=== PATIENT | female | born 1960 | race African-American/Black ===

== ENCOUNTER 2016-08-09 11:03 | Observation (INO) | payer OTHER ==
[~2016-08-09] VITALS: Ht 172.7 cm; Wt 130.0 kg
[2016-08-09] VITALS (8 sets, daily range): BP systolic 117–152; BP diastolic 68–99; PULSE 82–109; RESP 16–20; TEMP 97.6–98.5; O2SAT 93–98
[~2016-08-09 11:03] MED LIST: ALBU0.08 NEB; ALBUAER3 INH; AMLO10 PO; ATOR40TA16 PO; CALTTAB PO; DICL1KIT TOPICAL; HYDR12.57 PO; IPRASOL INH; METF850 PO; SPIRCAP INH
[2016-08-09] MEDS: RESP: ALBUTEROL 2.5 MG/IPRATROPIUM 0.5 MG NEB (SCH) INH ×3 (12:44→13:00)
[2016-08-09] MEDS ORDERED: methylPREDNISolone SOD SUCC 125 MG/2 ML VIAL IVP ONE (12:45)
--- NOTE | 2016-08-09 12:57 | PD ---
HPI Chief Complaint: Chest Pain Time Seen by Provider: 12:38 Travel History International Travel<30 days: No Contact w/Intl Traveler<30days: No Traveled to known affect area: No History of Present Illness HPI Patient is a 56-year-old female presenting with chief complaint "I think I have pneumonia". 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 She has white sputum production. She states yesterday she began having intermittent left-sided sharp chest pain that is only with cough or deep inspiration. It is brief and fleeting and not exertional related. It does not radiate. She's denies ENT/URI symptoms, myalgias, headache, fever, chills, nausea and vomiting. She did not receive a influenza vaccine this year but has had 2 pneumococcal vaccinations. She has used nebulizers which has helped but after doing when at 5 AM this morning proximally 2-3 hours later she began coughing until she felt like she was going to "pass out" and she figured she should come to the ED. She denies any syncopal episode or recurring of the dizziness. She denies any chest pain currently. She denies any abdominal pain, dysuria or diarrhea. She states she' s had some recurrent upper extremity edema that is worse on the right with some pain in the right calf for 1 week. Has history of DVT in the right calf has been off warfarin for 4-5 months. She denies tobacco, ethanol and illicit drug use. PFSH Past Medical History Hx Anticoagulant Therapy: Yes Anemia: Yes Arthritis: Yes Autoimmune Disease: No Blood Disorders: No Bipolar Disorder: Yes Anxiety: Yes Depression: Yes Heart Rhythm Problems: No Cancer: No Cardiovascular Problems: Yes (HIGH BP) High Cholesterol: No Chemotherapy: No Chest Pain: No Congestive Heart Failure: No COPD: Yes Cerebrovascular Accident: Yes (cva) Diabetes: Yes (metformin) Diminished Hearing: No Deep Vein Thrombosis: Yes Endocrine: No Genitourinary: No Headaches: Yes Hepatitis: Yes Hypertension: Yes Immune Disorder: No Musculoskeletal: Yes (RT KNEE CONTUSION AND LEFT THUMB FX 06/06/06) Neurologic: Yes Psychiatric: No Reproductive: No Immunizations Current: Yes Myocardial Infarction: No Menopausal: Yes : 3 Para: 3 Tubal Ligation: Yes Past Surgical History Abdominal Surgery: No Arteriovenous Shunt: No Cardiac Surgery: No Ear Surgery: No Endocrine Surgery: No Eye Surgery: No Genitourinary Surgery: No Gynecologic Surgery: Yes (TUBAL LIGATION) Hysterectomy: No Insulin Pump: No Joint Replacement: No Neurologic Surgery: No Oral Surgery: No Pacemaker: No Thoracic Surgery: No Tonsillectomy: Yes Valve Replacement: Yes Other Surgery: Yes Social History Alcohol Use: No Tobacco Use: No Substance Use: No Allergies-Medications (Allergen,Severity, Reaction): Coded Allergies: Darvocet-N 100 (Verified Allergy, Severe, NAUSEA, 08/09/16) Toradol (Verified Allergy, Intermediate, rash, 08/09/16) Robaxin (Verified Adverse Reaction, Severe, DIARRHEA, 08/09/16) *MDRO Multi-Drug Resistant Organism (Verified Adverse Reaction, Unknown, ) 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 Reported Meds & Prescriptions Reported Meds & Active Scripts Active Glucophage (Metformin HCl) 850 Mg Tab 850 Mg PO DAILY With a meal Spiriva Handihaler (Tiotropium Inh) 18 Mcg Cap 18 Mcg INH DAILY 1 capsule = 18 mcg Caltrate 600+D (Calcium Carbonate-Cholecalciferol) 600-800 Mg-Unit Tab 1 Tab PO BID Hydrochlorothiazide 12.5 Mg Cap 12.5 Mg PO DAILY Reported Norvasc (Amlodipine Besylate) 10 Mg Tab 10 Mg PO DAILY Duoneb (Ipratropium-Albuterol Neb) 0.5-2.5 Mg/3 Ml Neb 1 Nebule INH Q4HR NEB Vopac Mds (Diclofenac Sodium (Topical)) 1.5 % Kit 4 Gm TOPICAL TID Atorvastatin (Atorvastatin Calcium) 40 Mg Tab 40 Mg PO HS Albuterol Neb (Albuterol Sulfate) 2.5 Mg/3 Ml Neb 2.5 Mg NEB Q4HR NEB While awake Proair Hfa 8.5 GM Inh (Albuterol Sulfate) 90 Mcg/Act Aer 1 Puff INH Q4H PRN 108 mcg/actuation Review of Systems Except as stated in HPI: all other systems reviewed are Neg Physical Exam Narrative GENERAL: Well-developed and well-nourished obese female adult in no acute distress. SKIN: Warm and dry. Good turgor without tenting. HEAD: Normocephalic and atraumatic. EYES: PERRL bilaterally, 5mm. EOMI bilaterally. No injection or icterus present. No proptosis. Lids without edema or erythema. ENT: Bilateral ear canals are non-edematous/non-erythematous without otorrhea. Bilateral TMs have intact landmarks and without distortion, perforation, air- fluid level or erythema. Nasal mucosa pink and moist without discharge, septum intact and midline. Buccal mucosa pink and moist. Oropharynx free of erythema, tonsillar hypertrophy, masses, swelling, asymmetry and exudates. Uvula midline and airway patent. NECK: Supple, no meningeal signs. Trachea midline, no JVD. No cervical or facial lymphadenopathy. CARDIOVASCULAR: Regular rate and rhythm without murmurs, rubs, clicks or gallops. Radial and posterior tibial pulses 2+ bilaterally. 1+ bilateral pedal edema, no appreciable difference comparing right to left. There is some tenderness of palpation of the right however it is not tense and there is no discoloration or warmth. RESPIRATORY: Reduced and coarse breath sounds diffusely with inspiratory wheezing, possible crackles in the mid to lower lung cox and the left. No distress or use of accessory muscles. GASTROINTESTINAL: Non-tender, non-distended. Normal bowel sounds all 4 quadrants. No masses or organomegaly present. MUSCULOSKELETAL: Some pain with palpation of the left side of the sternum and precordium without step offs or crepitus. Patient freely moving all four extremities spontaneously. Extremities without clubbing, cyanosis, or edema. No obvious deformities. NEUROLOGIC: CN II-XII grossly intact. Awake and alert. Motor grossly within normal limits. Normal speech. PSYCHIATRIC: Appropriate mood and affect; insight and judgment normal. Data Data Last Documented VS Vital Signs Date Time Temp Pulse Resp B/P Pulse Ox O2 Delivery O2 Flow Rate FiO2 08/09/16 14:25 82 20 99 Room Air 08/09/16 14:25 117/68 08/09/16 11:04 98.5 Orders Electrocardiogram (08/09/16 ) Complete Blood Count With Diff (08/09/16 12:34) Comprehensive Metabolic Panel (08/09/16 12:34) B-Type Natriuretic Peptide (08/09/16 12:34) Act Partial Throm Time (Ptt) (08/09/16 12:34) Prothrombin Time / Inr (Pt) (08/09/16 12:34) Magnesium (Mg) (08/09/16 12:34) Ckmb (Isoenzyme) Profile (08/09/16 12:34) Troponin I (08/09/16 12:34) Influenzae A/B Antigen (08/09/16 12:34) Iv Access Insert/Monitor (08/09/16 12:34) Ecg Monitoring (08/09/16 12:34) Oximetry (08/09/16 12:34) Chest, Pa & Lat (08/09/16 12:34) Methylprednisolone So Succ Inj (Solumedr (08/09/16 12:45) Albuterol-Ipratropium Neb (Duoneb Neb) (08/09/16 12:45) Us Leg Venous Doppler Bilat (08/09/16 ) Ct Pulmonary Angiogram (08/09/16 12:57) CKMB (08/09/16 13:15) CKMB% (08/09/16 13:15) Iohexol 350 Inj (Omnipaque 350 Inj) (08/09/16 14:55) Aspirin (Aspirin) (08/09/16 15:30) Morphine Inj (Morphine Inj) (08/09/16 15:30) Admit Order (Ed Use Only) (08/09/16 15:31) Labs Laboratory Tests Test 08/09/16 13:15 White Blood Count 6.7 TH/MM3 Red Blood Count 4.61 MIL/MM3 Hemoglobin 13.1 GM/DL Hematocrit 40.4 % Mean Corpuscular Volume 87.5 FL Mean Corpuscular Hemoglobin 28.5 PG Mean Corpuscular Hemoglobin 32.6 % Concent Red Cell Distribution Width 13.2 % Platelet Count 256 TH/MM3 Mean Platelet Volume 8.4 FL Neutrophils (%) (Auto) 48.3 % Lymphocytes (%) (Auto) 37.8 % Monocytes (%) (Auto) 7.4 % Eosinophils (%) (Auto) 5.6 % Basophils (%) (Auto) 0.9 % Neutrophils # (Auto) 3.3 TH/MM3 Lymphocytes # (Auto) 2.5 TH/MM3 Monocytes # (Auto) 0.5 TH/MM3 Eosinophils # (Auto) 0.4 TH/MM3 Basophils # (Auto) 0.1 TH/MM3 CBC Comment DIFF FINAL Differential Comment Prothrombin Time 10.7 SEC Prothromb Time International 1.0 RATIO Ratio Activated Partial 29.5 SEC Thromboplast Time Sodium Level 138 MEQ/L Potassium Level 4.3 MEQ/L Chloride Level 102 MEQ/L Carbon Dioxide Level 29.2 MEQ/L Anion Gap 7 MEQ/L Blood Urea Nitrogen 7 MG/DL Creatinine 0.66 MG/DL Estimat Glomerular Filtration 111 ML/MIN Rate Random Glucose 96 MG/DL Calcium Level 8.8 MG/DL Magnesium Level 2.1 MG/DL Total Bilirubin 0.3 MG/DL Aspartate Amino Transf 21 U/L (AST/SGOT) Alanine Aminotransferase 25 U/L (ALT/SGPT) Alkaline Phosphatase 88 U/L Total Creatine Kinase 170 U/L Creatine Kinase MB 0.8 NG/ML Troponin I LESS THAN 0.02 NG/ML B-Type Natriuretic Peptide 20 PG/ML Total Protein 8.1 GM/DL Albumin 3.6 GM/DL [facility] Medical Decision Making Medical Screen Exam Complete: Yes Emergency Medical Condition: Yes Interpretation(s) Laboratory Tests Test 08/09/16 13:15 White Blood Count 6.7 TH/MM3 (4.0-11.0) Red Blood Count 4.61 MIL/MM3 (4.00-5.30) Hemoglobin 13.1 GM/DL (11.6-15.3) Hematocrit 40.4 % (35.0-46.0) Mean Corpuscular Volume 87.5 FL (80.0-100.0) Mean Corpuscular Hemoglobin 28.5 PG (27.0-34.0) Mean Corpuscular Hemoglobin 32.6 % Concent (32.0-36.0) Red Cell Distribution Width 13.2 % (11.6-17.2) Platelet Count 256 TH/MM3 (150-450) Mean Platelet Volume 8.4 FL (7.0-11.0) Neutrophils (%) (Auto) 48.3 % (16.0-70.0) Lymphocytes (%) (Auto) 37.8 % (9.0-44.0) Monocytes (%) (Auto) 7.4 % (0.0-8.0) Eosinophils (%) (Auto) 5.6 % (0.0-4.0) Basophils (%) (Auto) 0.9 % (0.0-2.0) Neutrophils # (Auto) 3.3 TH/MM3 (1.8-7.7) Lymphocytes # (Auto) 2.5 TH/MM3 (1.0-4.8) Monocytes # (Auto) 0.5 TH/MM3 (0-0.9) Eosinophils # (Auto) 0.4 TH/MM3 (0-0.4) Basophils # (Auto) 0.1 TH/MM3 (0-0.2) CBC Comment DIFF FINAL Differential Comment Prothrombin Time 10.7 SEC (9.8-11.6) Prothromb Time International 1.0 RATIO Ratio Activated Partial 29.5 SEC Thromboplast Time (24.3-30.1) Sodium Level 138 MEQ/L (136-145) Potassium Level 4.3 MEQ/L (3.5-5.1) Chloride Level 102 MEQ/L (98-107) Carbon Dioxide Level 29.2 MEQ/L (21.0-32.0) Anion Gap 7 MEQ/L (5-15) Blood Urea Nitrogen 7 MG/DL (7-18) Creatinine 0.66 MG/DL (0.50-1.00) Estimat Glomerular Filtration 111 ML/MIN Rate (>89) Random Glucose 96 MG/DL (74-106) Calcium Level 8.8 MG/DL (8.5-10.1) Magnesium Level 2.1 MG/DL (1.5-2.5) Total Bilirubin 0.3 MG/DL (0.2-1.0) Aspartate Amino Transf 21 U/L (15-37) (AST/SGOT) Alanine Aminotransferase 25 U/L (10-53) (ALT/SGPT) Alkaline Phosphatase 88 U/L (45-117) Total Creatine Kinase 170 U/L (26-192) Creatine Kinase MB 0.8 NG/ML (0.5-3.6) Troponin I LESS THAN 0.02 NG/ML (0.02-0.05) B-Type Natriuretic Peptide 20 PG/ML (0-100) Total Protein 8.1 GM/DL (6.4-8.2) Albumin 3.6 GM/DL (3.4-5.0) Last [address] Angiography 08/09/16 1257 Signed Impressions: Service Date/Time: Tuesday, August 09, 2016 14:46 - CONCLUSION: 1. Negative for pulmonary embolic disease. Chronic scarring and subsegmental atelectasis left upper lobe. Multiple calcified granulomata in the lungs. Tim Leone MD Chest X-Ray 08/09/16 1234 Signed Impressions: Service Date/Time: Tuesday, August 09, 2016 13:36 - CONCLUSION: No acute intrathoracic disease. Carlos Sanz MD Lower Extremity Ultrasound 08/09/16 0000 Signed Impressions: Service Date/Time: Tuesday, August 09, 2016 13:49 - CONCLUSION: 1. No DVT identified. 2. Large Loving's cyst within the popliteal fossa. 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 There is reproducible with palpation. She has no active chest pain. She does have some bilateral pedal edema which she says is relatively new and she has a history of DVT in the right lower extremity she feels like the right is greater than the left and is somewhat painful. Slightly tender to palpation but not warm or appreciably edematous greater than the left. The chest pain is reproducible. Given her respiratory findings this is most likely a COPD exacerbation however cannot rule out ACS or PE. Ordered EKG, chest x-ray, labs included troponin, BNP and coags. Her CT pulmonary angiogram and ordered bilateral venous Doppler ultrasounds. She was given Solu-Medrol and DuoNeb's. EKG shows T-wave flattening in V5 and V6 otherwise unremarkable, sinus rhythm, normal axis and intervals. Chest x-ray showed stable granulomatous disease. Ultrasound bilateral lower extremity shows no DVT but there is a large Loving cyst which is seen on previous Dopplers. CTA pulmonary angiogram is negative for PE. CBC and INR unremarkable. Metabolic panel unremarkable. Troponin less than 0.02, BNP 20. Patient has improved work of breathing and wheezing is resolved on exam, highly suggestive of COPD exacerbation. She was originally without chest pain when first examined however on follow-up she says of the chest pain has returned. She was given aspirin 25 mg and morphine for her pain. Given her history of diabetes and hypertension she is high risk since chest pain seemed to be a dominant symptom and she was admitted to the chest pain center. Diagnosis Primary Impression: Chest pain Qualified Code: R07.9 - Chest pain, unspecified type Additional Impressions: COPD exacerbation Bakers cyst Qualified Code: M71.21 - Bakers cyst, right Condition: Stable Teo Huynh III Aug 09, 2016 12:57 Teo Huynh III Aug 09, 2016 12:57
[2016-08-09 13:37] LABS: AUTOMATED NEUTROPHIL # 3.3 TH/MM3 (1.8-7.7); BASOPHIL # 0.1 TH/MM3 (0-0.2); BASOPHIL % 0.9 % (0.0-2.0); EOSINOPHIL # 0.4 TH/MM3 (0-0.4); EOSINOPHIL % 5.6 % (0.0-4.0); HEMATOCRIT 40.4 % (35.0-46.0); HEMO FLAGS DIFF FINAL; LYMPH % 37.8 % (9.0-44.0); LYMPHOCYTE # 2.5 TH/MM3 (1.0-4.8); MEAN CELL VOLUME 87.5 FL (80.0-100.0); MEAN CORPUSCULAR HEMOGLOBIN 28.5 PG (27.0-34.0); MEAN CORPUSCULAR HGB CONC 32.6 % (32.0-36.0); MONO % 7.4 % (0.0-8.0); NEUT % 48.3 % (16.0-70.0); PLATELET COUNT 256 TH/MM3 (150-450); RED BLOOD COUNT 4.61 MIL/MM3 (4.00-5.30); RED CELL DISTRIBUTION WIDTH 13.2 % (11.6-17.2); WHITE BLOOD COUNT 6.7 TH/MM3 (4.0-11.0)
[2016-08-09 13:45] LABS: APTT (PATIENT) 29.5 SEC (24.3-30.1); PROTHROMBIN TIME - PATIENT 10.7 SEC (9.8-11.6)
--- NOTE | 2016-08-09 13:53 | RADRPT ---
EXAM DATE/TIME: 08/09/2016 13:36 [facility] COMPARISON: CHEST PA & LAT, May 28, 2015, 5:10. INDICATIONS : Patient states chest pain, shortness of breath, and weakness for 3 days. MEDICAL HISTORY : Chronic obstructive pulmonary disease. Diabetes mellitus type II. SURGICAL HISTORY : None. ENCOUNTER: Initial ACUITY: 3 days PAIN SCORE: 8/10 LOCATION: Bilateral chest FINDINGS: PA and lateral views of the chest demonstrates stable scarring in the left upper lung. There are calc ified granulomas in both lungs. No acute pulmonary infiltrates. The heart size is stable. There are n o pleural effusions. No pulmonary edema. The bony structures are grossly intact. Compared to the prio r exam there has been no significant changes.. CONCLUSION: No acute intrathoracic disease. Carlos Sanz MD on August 09, 2016 at 13:50 Board Certified Radiologist. This report was verified electronically.
[2016-08-09 13:56] LABS: ANION GAP 7 MEQ/L (5-15); AST (GOT) 21 U/L (15-37); BICARBONATE 29.2 MEQ/L (21.0-32.0); BLOOD UREA NITROGEN 7 MG/DL (7-18); CHLORIDE 102 MEQ/L (98-107); GLOMERULAR FILTRATION RATE 111 ML/MIN (>89); MAGNESIUM 2.1 MG/DL (1.5-2.5); POTASSIUM 4.3 MEQ/L (3.5-5.1); SODIUM (NA) 138 MEQ/L (136-145)
[2016-08-09 14:03] LABS: ALKALINE PHOSPHATASE 88 U/L (45-117); ALT (GPT) 25 U/L (10-53); CREATINE KINASE 170 U/L (26-192); TOTAL BILIRUBIN ADULT 0.3 MG/DL (0.2-1.0)
[2016-08-09 14:16] LABS: CKMB 0.8 NG/ML (0.5-3.6)
--- NOTE | 2016-08-09 14:44 | RADRPT ---
EXAM DATE/TIME: 08/09/2016 13:49 [facility] COMPARISON: US LEG LEFT VENOUS DOPPLER, June 16, 2015, 15:04. INDICATIONS : Bilateral leg swelling. MEDICAL HISTORY : Chronic obstructive pulmonary disease. Deep venous thrombosis. Hypertension. Cerebrovascular accident . Syncope. Tuberculosis. . Arthritis. Osteoporosis. Diabetes. Bipolar. Anemia. Hepatitis. MR SA. SURGICAL HISTORY : Tonsillectomy.Tubal ligation. Right knee surgery. ENCOUNTER: Subsequent ACUITY: 2 weeks PAIN SCORE: 3/10 LOCATION: Bilateral legs. TECHNIQUE: Venous ultrasound of the left and right leg was performed from the inguinal ligament to the proximal calf. Real-time, color Doppler and spectral tracing, compression and augmentation techniques were us ed. FINDINGS: RIGHT LEG: There is normal compressibility of the deep venous system from the inguinal region to the proximal ca lf. No echogenic clot is seen in the lumen of the common femoral, femoral, popliteal, and posterior tibial veins. There is a normal response of the venous system to proximal and distal augmentation an d respiration. The examination does demonstrate a 6.6 x 3.0 x 1.9 cm Loving's cyst within the popliteal fossa. LEFT LEG: There is normal compressibility of the deep venous system from the inguinal region to the proximal ca lf. No echogenic clot is seen in the lumen of the common femoral, femoral, popliteal, and posterior tibial veins. There is a normal response of the venous system to proximal and distal augmentation an d respiration. CONCLUSION: 1. No DVT identified. 2. Large Loving's cyst within the popliteal fossa. Sudheer Glover MD on August 09, 2016 at 14:42 Board Certified Radiologist. This report was verified electronically.
[2016-08-09] MEDS ORDERED: IOHEXOL 350 MG/ML 10 ML VIAL (for RAD DIAG) IV ONE (14:55)
--- NOTE | 2016-08-09 15:16 | RADRPT ---
EXAM DATE/TIME: 08/09/2016 14:46 [facility] COMPARISON: No previous studies available for comparison. INDICATIONS : Left chest pain x 3 days. IV CONTRAST: 74 cc Omnipaque 350 (iohexol) IV RADIATION DOSE: 28.45 CTDIvol (mGy) MEDICAL HISTORY : Cerebrovascular disease. Deep venous thrombosis. Chronic obstructive pulmonary disease.Hypertension. Diabetes. Tuberculosis. SURGICAL HISTORY : Tubal ligation. ENCOUNTER: Initial ACUITY: 3 days PAIN SCALE: 5/10 LOCATION: Left chest TECHNIQUE: Volumetric scanning of the chest was performed using a pulmonary embolism protocol MIP images were re constructed. Using automated exposure control and adjustment of the mA and/or kV according to patien t size, radiation dose was kept as low as reasonably achievable to obtain optimal diagnostic quality images. FINDINGS: No filling defects identified within the pulmonary arteries to suggest pulmonary embolic disease. The re is linear scarring in the upper left lung associated with calcification. There is chronic bilatera l apical pleural thickening. Calcified granuloma noted in both lungs. No pleural or pericardial effus ion. No acute findings in the upper abdomen. No adenopathy. Moderate coronary calcifications. CONCLUSION: 1. Negative for pulmonary embolic disease. Chronic scarring and subsegmental atelectasis left upper l obe. Multiple calcified granulomata in the lungs. Tim Leone MD on August 09, 2016 at 15:10 Board Certified Radiologist. This report was verified electronically.
[2016-08-09] MEDS ORDERED: ASPIRIN 325 MG TAB PO ONE (15:30)
[2016-08-09] MEDS ORDERED: MORPHINE SULFATE 4 MG/ML INJ IV PUSH ONE (15:30)
[2016-08-09] MEDS ORDERED: GLUCAGON 1 MG/ML VIAL IM/SQ PRN (16:15)
[2016-08-09] MEDS ORDERED: DEXTROSE 50% IN WATER 50 ML VIAL(D50) IV PRN (16:15)
[2016-08-09] MEDS ORDERED: SODIUM CHLORIDE 0.9% FLUSH 5 ML FLUSH IVF PRN (16:30)
[2016-08-09] MEDS ORDERED: ONDANSETRON HCL 4 MG/2 ML VIAL IV PRN (16:30)
[2016-08-09] MEDS ORDERED: cloNIDine HCL 0.1 MG TAB PO PRN (17:00)
[2016-08-09] MEDS ORDERED: ALPRAZolam 0.25 MG TAB PO PRN (17:00)
[2016-08-09 17:50] LABS: CREATINE KINASE 136 U/L (26-192)
[2016-08-09 18:02] LABS: CKMB 1.2 NG/ML (0.5-3.6)
[2016-08-09] MEDS ORDERED: RESP: ALBUTEROL 2.5 MG/IPRATROPIUM 0.5 MG NEB (PRN) INH (20:00)
[2016-08-09 20:30] LABS: CREATINE KINASE 136 U/L (26-192)
[2016-08-09 20:42] LABS: CKMB 0.9 NG/ML (0.5-3.6)
[2016-08-09] MEDS ORDERED: ATORVASTATIN 40 MG TAB PO SCH (21:00)
[2016-08-09] MEDS: SODIUM CHLORIDE 0.9% FLUSH 5 ML FLUSH IVF SCH (21:55)
[2016-08-09] MEDS: INSULIN ASPART SUPPLEMENTAL SCALE SQ SCH (21:56)
[2016-08-09] MEDS: ACETAMINOPHEN/HYDROcodone 325 MG/7.5 MG TAB PO PRN (22:38)
[2016-08-10] VITALS (7 sets, daily range): BP systolic 119–143; BP diastolic 79–85; PULSE 73–91; RESP 18–20; TEMP 96.3–97.4; O2SAT 92–96
[2016-08-10] MEDS: ACETAMINOPHEN/HYDROcodone 325 MG/7.5 MG TAB PO PRN ×2 (04:00→09:55)
[2016-08-10] MEDS: INSULIN ASPART SUPPLEMENTAL SCALE SQ SCH ×2 (07:00→12:30)
--- NOTE | 2016-08-10 08:25 | MH ---
cc: JO OVIEDO MD DATE OF ADMISSION 08/09/2016 DATE OF 1960 CHIEF COMPLAINT Chest pain and coughing. HISTORY OF THE PRESENT ILLNESS This is a 56-year-old female that presents to the emergency department with a complaint of "I think I have pneumonia". 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 She again thought that she had pneumonia at that time. She states that she has been having a cough for the last week. It is sometimes productive bringing up tannish to whitish colored mucus. Really has had no fevers at home. Last night the cough became worse. She took two DuoNeb at home and states that the cough cleared up and she was feeling better. She also states that for the last three days she has had some chest discomfort. She states the first two days only it was occurring when she was coughing, but over the last 24 hours it has been there constantly but is worsened when she coughs or certain movements. She is at times short of breath . (1:06). She was nauseous yesterday and had one episode of emesis with that. Since then no longer nauseated. Yesterday when she was coughing a lot she also was a little diaphoretic. She states that while in the emergency department she was given three breathing treatments and IV steroids and feels a lot better. She states that she was wheezing quit a bit prior to that and now she has not noticed any more wheezing. She does have a primary care physician. She does not currently followed by entry level software engineer. She thinks she has had a stress test in the past. I reviewed her records, she had adenosine thallium stress test in 2010 that was non ischemic. The patient also has a history of deep venous thrombosis of her right leg about a year and a half ago and states that she finished warfarin therapy and has been off of warfarin for the last four or five months. She states that both legs have been a little bothersome and she needs to have both knees replaced and was hoping to have one of them done here in the near future. PAST MEDICAL HISTORY 1. Chronic obstructive pulmonary disease. 2. Diabetes. 3. Hypertension. 4. History of DVT of her right leg. 5. She states that she was told by an emergency room physician that she had a stroke but does not remember having one. 6. Also a history of hyperlipidemia. Denies known coronary artery disease. FAMILY HISTORY Positive ____ had myocardial infarction at 56. SOCIAL HISTORY The patient is a non-smoker. She denies any illicit drugs. She rarely has any alcohol. PAST SURGICAL HISTORY 1. Tubal ligation. 2. Tonsillectomy. ALLERGIES DARVOCET, ROBAXIN, TORADOL. SHE HAS A HISTORY OF MRSA. MEDICATIONS Current medications include: 1. Spiriva HandiHaler. 2. Albuterol inhaler. 3. DuoNeb nebulizer treatments. 4. Metformin. 5. Norvasc. 6. Atorvastatin. 7. Calcium. 8. Diclofenac topical gel. 9. Hydrochlorothiazide. REVIEW OF SYSTEMS GENERAL: Denies fever or chills. HEENT: Denies headache, earache, sore throat, difficulty swallowing. CARDIOVASCULAR: Describes the discomfort as mentioned above. At times diaphoresis yesterday. Denies sensation of heart beating rapidly or irregularly. No syncope. But states that she had a couple of episodes where she was coughing so much she thought she could have passed out. RESPIRATORY: The patient complains of a cough over the last week. She was wheezing yesterday that improved after some breathing treatments at home. She also states that she was wheezing a lot in the emergency room earlier but got three breathing treatments and some IV steroids and is feeling a lot better. Denies hemoptysis. GASTROINTESTINAL: There was nausea with one episode of emesis yesterday. Denies abdominal pain. Denies diarrhea or constipation or blood in the stool. MUSCULOSKELETAL: She has some chronic knee pain. States both legs have been bothering her for a long time. Denies any recent travel. She also complains of chronic neck and back pain. NEUROVASCULAR: Denies headache or dizziness. ENDOCRINE: Denies polyuria, polydipsia. HEMATOLOGIC: Denies easy bruising. SKIN: Denies rash or itching. PHYSICAL EXAMINATION VITAL SIGNS: In the emergency department initially included a blood pressure of 152/84, heart rate was 90, respiratory rate 16, pulse oximetry 96% on room air and she was afebrile. The most recent vital signs include a blood pressure of 132/87, heart rate is 82, respiratory rate 18, pulse oximetry 98% on room air. GENERAL: The patient is seen in the examination room in no apparent distress. She is very pleasant. She speaks in clear and complete sentences. HEENT: Head is atraumatic, normocephalic. NECK: Supple without lymphadenopathy. Trachea is midline. No JVD or carotid bruits. CARDIOVASCULAR: Regular rate and rhythm without murmurs, rubs, or gallops. LUNGS: Clear to auscultation bilaterally. No wheezes, rhonchi or rales. There is good air movement. No use of accessory muscles. She states that earlier before the treatments and steroids she was very tight and was wheezing a lot. There is easily reproducible chest wall discomfort to the center and just left of the sternum. ABDOMEN: Nontender. Nondistended. Bowel sounds are normal. No rebound or guarding. No obvious pulsatile mass or bruit. No CVA tenderness. Strong femoral pulses bilaterally. MUSCULOSKELETAL: The patient moving upper and lower extremities freely. There is some tenderness with range of motion of her knees which is chronic. She also has some discomfort with movement of her back which also is chronic. At the time there is no calf tenderness or edema. No Radha sign. Strong pulses in the upper and lower extremities. NEUROVASCULAR: The patient is alert and oriented. Cranial nerves II through XII are grossly intact. No focal deficits. Speech is clear. SKIN: No rashes and turgor is normal. LABORATORY DATA CBC is unremarkable. Coagulation studies were unremarkable. Complete metabolic panel is normal. The first set of cardiac enzymes normal. BNP is normal at 20. IMAGING PA and lateral chest x-ray read by radiologist as no acute intrathoracic disease. A CT pulmonary angiography obtained in the emergency room by the radiologist as negative for pulmonary embolic disease. Chronic scarring and subsegmental atelectasis left upper lobe. Multiple calcified granulomata in the lungs. An ultrasound of both legs obtained in the emergency room and read by the radiologist as no deep venous thrombosis identified. There is a large sanford's cyst within the popliteal fossa of the right leg, and I reviewed her records and she has had this for some time. ELECTROCARDIOGRAM Initial EKG is sinus rhythm, rate of 74 with nonspecific T wave changes laterally. ASSESSMENT AND PLAN 1. Chest pain: The patient will continue to have cardiac enzymes and EKGs for ruling out purposes. She will be seen by Dr. Oviedo of cardiology in the chest pain center. Further plan pending Dr. Oviedo's evaluation as far in the morning if she will need stress testing or not. If she needs stress test would likely be a Lexiscan. If her cardiac workup were to be unremarkable, she will be discharged home with instructions to follow up with local physician. 2. Chronic obstructive pulmonary disease. We will continue DuoNeb as needed. At discharge she can resume her medications. 3. Hypertension. Continue current medications. Add Catapres as needed. 4. Diabetes. We will need to hold metformin for two days secondary to recent IV contrast study. She will be covered with insulin sliding scale coverage. The patient is stable at this time. She is agreeable to this plan. DICTATED BY: KENNA Lucas Jo Oviedo M.D. BAB/KK /4:28 PM /8:25 AM
[2016-08-10] MEDS ORDERED: HYDROCHLOROTHIAZIDE 12.5 MG CAP PO SCH (09:00)
[2016-08-10] MEDS: SODIUM CHLORIDE 0.9% FLUSH 5 ML FLUSH IVF SCH (09:50)
--- NOTE | 2016-08-10 13:21 | EKG ---
Date Performed: 08/09/2016 Time Performed: 20:04:04 PTAGE: 56 years EKG: SINUS TACHYCARDIA NONSPECIFIC T-WAVE ABNORMALITY ABNORMAL RHYTHM ECG PREVIOUS TRACING : 08/09/2016 17.10 Since previous tracing, no significant change noted DOCTOR: Christophe Santos Interpretating Date/Time 08/10/2016 13:20:02
[2016-08-10] MEDS ORDERED: REGADENOSON INJ 0.4 MG/5 ML SYR ONE (13:47)
--- NOTE | 2016-08-10 15:15 | RADRPT ---
EXAM DATE/TIME: 08/10/2016 12:49 [facility] COMPARISON: MYOCARDIAL PERF PHARM SPECT, GATED W/EF, April 19, 2010, 11:08. INDICATIONS : Left sided chest pain for 3 days. Angina. DOSE: 35 mCi Tc99m Myoview at stress. 11 mCi Tc99m Myoview at rest. 0.4 mg Lexiscan STRESS SYMPTOMS: Flushed. EJECTION FRACTION: 53% MEDICAL HISTORY : Hypertension. Chronic obstructive pulmonary disease. Diabetes mellitus type 2. Granulomatous lung dis ease. SURGICAL HISTORY : Tubal ligation. ENCOUNTER: Initial ACUITY: 3 days PAIN SCALE: 3/10 LOCATION: Midsternal chest TECHNIQUE: The patient underwent pharmacologic stress with infusion of prescribed dose. Continuous ECG tracing was monitored during stress. Gated SPECT imaging was performed after stress and conventional SPECT i maging was performed at rest. The examination was performed on a SPECT/CT scanner, both attenuation and non-corrected datasets were reviewed. FINDINGS: DISTRIBUTION: The maximum perfused segment at stress is in the anterolateral wall. PERFUSION STUDY: The pattern of perfusion at stress is within normal limits. GATED STUDY: There is intact wall motion and thickening without hypokinetic or dyskinetic segments. CONCLUSION: 1. No reversible perfusion defect to suggest stress induced myocardial ischemia identified. RISK CATEGORY: Low (<1% Annual Mortality Rate) Sudheer Glover MD on August 10, 2016 at 15:10 Board Certified Radiologist. This report was verified electronically.
--- NOTE | 2016-08-10 15:27 | EKG ---
Date Performed: 08/09/2016 Time Performed: 17:10:52 PTAGE: 56 years EKG: Sinus rhythm NONSPECIFIC T-WAVE ABNORMALITY BORDERLINE ECG PREVIOUS TRACING : 08/09/2016 12.03 Since previous tracing, no significant change noted DOCTOR: Christophe Santos Interpretating Date/Time 08/10/2016 15:26:26
--- NOTE | 2016-08-10 15:29 | HHI.DCPOC ---
Discharge Care Plan Diagnosis: (1) Chest pain (2) Hypertension (3) Hyperlipidemia (4) COPD exacerbation (5) Obesity Goals to Promote Your Health * To prevent worsening of your condition and complications * To maintain your health at the optimal level Directions to Meet Your Goals Take your medications as prescribed Follow your dietary instruction Follow activity as directed Keep your appointments as scheduled Take your immunizations and boosters as scheduled If your symptoms worsen call your PCP, if no PCP go to Urgent Care Center or Emergency Room Smoking is Dangerous to Your Health. Avoid second hand smoke Call the 24-hour hour crisis hotline for domestic abuse at [facility] Aug 10, 2016 15:29
--- NOTE | 2016-08-10 15:29 | EKG ---
Date Performed: 08/09/2016 Time Performed: 12:03:00 PTAGE: 56 years EKG: Sinus rhythm NONSPECIFIC T-WAVE ABNORMALITY BORDERLINE ECG PREVIOUS TRACING : 09/15/2015 05.46 Since previous tracing, no significant change noted DOCTOR: Christophe Santos Interpretating Date/Time 08/10/2016 15:29:11
--- NOTE | 2016-08-10 15:32 | TR ---
Date Performed: 08/10/2016 Time Performed: 13:50:01 DOCTOR: Christophe Santos DRUG LIST: CLINICAL HISTORY: CHEST PAIN REASON FOR TEST: CHEST PAIN REASON FOR ENDING: OBSERVATION: CONCLUSION: Lexiscan stress test was performed under standard four minute protocol. Radionuclid e was injected one minute prior to ending the test. No electrocardiographic abormalities were present to suggest ischemia. Nuclear imaging and interpretation are pending. COMMENTS:
[2016-08-12] MEDS ORDERED: AMLO10 PO ×2 (13:13→13:14)
[2016-08-19] MEDS ORDERED: DICL1GEL TOPICAL (09:23)
[2016-09-27] MEDS ORDERED: ATOR40TA16 PO (08:14)
[2016-12-07] MEDS ORDERED: DICL1GEL7 TOPICAL (09:39)
[2016-12-07] MEDS ORDERED: HYDR12.57 PO (09:39)
[2016-12-07] MEDS ORDERED: METF850 PO (09:39)
[2016-12-07] MEDS ORDERED: AMLO10 PO (09:39)
[2016-12-07] MEDS ORDERED: ATOR40TA16 PO (09:39)
[2016-12-20] MEDS ORDERED: ATOR40TA16 PO (09:32)
[2016-12-20] MEDS ORDERED: HYDR12.57 PO (09:33)
[2016-12-20] MEDS ORDERED: SPIRCAP INH (09:34)
== END 2016-08-10 16:55 | disposition home or self-care (01) ==
LOC: NEPE 13:30 → NEDA 15:33 → NEPHCDU 19:49
PROVIDERS: ADMIT Internal Medicine Interventional Cardiology; ATTEND Internal Medicine Interventional Cardiology
DX: R07.9 Chest pain, unspecified (principal); J44.1 Chronic obstructive pulmonary disease with (acute) exacerbation; M71.21 Synovial cyst of popliteal space [Baker], right knee; Z86.73 Personal history of transient ischemic attack (TIA), and cerebral infarction without residual deficits; J84.10 Pulmonary fibrosis, unspecified; I10 Essential (primary) hypertension; E11.9 Type 2 diabetes mellitus without complications; Z79.01 Long term (current) use of anticoagulants; K75.9 Inflammatory liver disease, unspecified; Z79.899 Other long term (current) drug therapy; Z79.84 Long term (current) use of oral hypoglycemic drugs; J98.11 Atelectasis; Z86.718 Personal history of other venous thrombosis and embolism; R60.0 Localized edema; E78.5 Hyperlipidemia, unspecified
CPT/HCPCS: 71020; 71275; 78452; 80053; 82550; 82552; 82948; 83735; 83880; 84484; 85025; 85610; 85730; 87804; 93005; 93017; 93970; 94640; 94664; 96374; 99285; A9502; G0378; J1815; J2270; J2785; J2930; Q9967

== ENCOUNTER 2016-08-15 00:26 | Emergency (ER) | payer OTHER ==
[2016-08-15 00:30] VITALS: BP 140/85; PULSE 105; RESP 20; TEMP 98.3; O2SAT 96
[2016-08-15 01:30] VITALS: BP 115/86; PULSE 95; RESP 22; TEMP 98.6; O2SAT 95
[2016-08-15] MEDS ORDERED: SODIUM CHLOR 0.9% 1000 ML INJ 1,000 ML IV SCH (01:32)
--- NOTE | 2016-08-15 01:36 | PD ---
HPI Chief Complaint: Flank/Kidney Pain Time Seen by Provider: 01:29 Travel History International Travel<30 days: No Contact w/Intl Traveler<30days: No Traveled to known affect area: No History of Present Illness HPI Patient is a 56-year-old female who presents to emergency room with complaints of right-sided flank pain. Patient reports that flank pain began around 11 PM tonight, reports the pain does not radiate. Patient reports no history of kidney stones in the past. Patient denies dysuria, urinary urgency or frequency. Patient denies nausea or vomiting. Patient discussed patient or diarrhea. Patient denies fall or any trauma to her low back. PFSH Past Medical History Hx Anticoagulant Therapy: Yes Anemia: Yes Arthritis: Yes Autoimmune Disease: No Blood Disorders: No Bipolar Disorder: Yes Anxiety: Yes Depression: Yes Heart Rhythm Problems: No Cancer: No Cardiovascular Problems: Yes (HIGH BP) High Cholesterol: No Chemotherapy: No Chest Pain: No Congestive Heart Failure: No COPD: Yes Cerebrovascular Accident: Yes Diabetes: Yes Patient Takes Glucophage: Yes Diminished Hearing: No Deep Vein Thrombosis: Yes Endocrine: No Gastrointestinal Disorders: No Genitourinary: No Headaches: Yes Hepatitis: Yes Hypertension: Yes Immune Disorder: No Implanted Vascular Access Dvce: No Musculoskeletal: Yes (RT KNEE CONTUSION AND LEFT THUMB FX 06/06/06) Neurologic: Yes Psychiatric: No Reproductive: No Immunizations Current: Yes Myocardial Infarction: No Tetanus Vaccination: < 5 Years Influenza Vaccination: Yes ?: Not Menopausal: Yes : 3 Para: 3 Tubal Ligation: Yes Past Surgical History Abdominal Surgery: No Arteriovenous Shunt: No Cardiac Surgery: No Ear Surgery: No Endocrine Surgery: No Eye Surgery: No Genitourinary Surgery: No Gynecologic Surgery: Yes (TUBAL LIGATION) Hysterectomy: No Insulin Pump: No Joint Replacement: No Neurologic Surgery: No Oral Surgery: No Pacemaker: No Thoracic Surgery: No Tonsillectomy: Yes Valve Replacement: Yes Other Surgery: Yes Family History Family History: Negative Social History Alcohol Use: No Tobacco Use: No Substance Use: No Allergies-Medications (Allergen,Severity, Reaction): Coded Allergies: Darvocet-N 100 (Verified Allergy, Severe, NAUSEA, 08/09/16) Toradol (Verified Allergy, Intermediate, rash, 08/09/16) Robaxin (Verified Adverse Reaction, Severe, DIARRHEA, 08/09/16) *MDRO Multi-Drug Resistant Organism (Verified Adverse Reaction, Unknown, ) 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 Reported Meds & Prescriptions Reported Meds & Active Scripts Active Macrobid (Nitrofurantoin Monoh/Nitrofur Macro) 100 Mg Cap 100 Mg PO BID 10 Days Norvasc (Amlodipine Besylate) 10 Mg Tab 10 Mg PO DAILY Glucophage (Metformin HCl) 850 Mg Tab 850 Mg PO DAILY With a meal Spiriva Handihaler (Tiotropium Inh) 18 Mcg Cap 18 Mcg INH DAILY 1 capsule = 18 mcg Caltrate 600+D (Calcium Carbonate-Cholecalciferol) 600-800 Mg-Unit Tab 1 Tab PO BID Hydrochlorothiazide 12.5 Mg Cap 12.5 Mg PO DAILY Reported Duoneb (Ipratropium-Albuterol Neb) 0.5-2.5 Mg/3 Ml Neb 1 Nebule INH Q4HR NEB Vopac Mds (Diclofenac Sodium (Topical)) 1.5 % Kit 4 Gm TOPICAL TID Atorvastatin (Atorvastatin Calcium) 40 Mg Tab 40 Mg PO HS Albuterol Neb (Albuterol Sulfate) 2.5 Mg/3 Ml Neb 2.5 Mg NEB Q4HR NEB While awake Proair Hfa 8.5 GM Inh (Albuterol Sulfate) 90 Mcg/Act Aer 1 Puff INH Q4H PRN 108 mcg/actuation Review of Systems General / Constitutional: No: Fever Eyes: No: Visual changes HENT: No: Headaches Cardiovascular: No: Chest Pain or Discomfort Respiratory: No: Shortness of Breath Gastrointestinal: No: Abdominal Pain Genitourinary: No: Dysuria Musculoskeletal: Positive: Pain (right-sided flank pain) Skin: No Rash Neurologic: No: Weakness Psychiatric: No: Depression Endocrine: No: Polydipsia Hematologic/Lymphatic: No: Easy Bruising Physical Exam Narrative GENERAL: Patient in mild distress, patient crying evaluation SKIN: Warm and dry. HEAD: Atraumatic. Normocephalic. EYES: Pupils equal and round. No scleral icterus. No injection or drainage. ENT: No nasal bleeding or discharge. Mucous membranes pink and moist. NECK: Trachea midline. No JVD. CARDIOVASCULAR: Regular rate and rhythm. No murmur appreciated. RESPIRATORY: No accessory muscle use. Clear to auscultation. Breath sounds equal bilaterally. GASTROINTESTINAL: Abdomen soft, non-tender, nondistended. Hepatic and splenic margins not palpable. MUSCULOSKELETAL: No obvious deformities. No clubbing. No cyanosis. No edema. Patient with right-sided flank pain NEUROLOGICAL: Awake and alert. No obvious cranial nerve deficits. Motor grossly within normal limits. Normal speech. PSYCHIATRIC: Agitated affect. Data Data Last Documented VS Vital Signs Date Time Temp Pulse Resp B/P Pulse Ox O2 Delivery O2 Flow Rate FiO2 08/15/16 01:30 98.6 95 22 115/86 95 Room Air Orders Complete Blood Count With Diff (08/15/16 01:32) Comprehensive Metabolic Panel (08/15/16 01:32) Lipase (08/15/16 01:32) Prothrombin Time / Inr (Pt) (08/15/16 01:32) Act Partial Throm Time (Ptt) (08/15/16 01:32) Urinalysis - C+S If Indicated (08/15/16 01:32) Ct Abd/Pel W/O Iv Contrast (08/15/16 01:32) Morphine Inj (Morphine Inj) (08/15/16 01:45) Ondansetron Inj (Zofran Inj) (08/15/16 01:45) Sodium Chlor 0.9% 1000 Ml Inj (Ns 1000 M (08/15/16 01:32) Sodium Chloride 0.9% Flush (Ns Flush) (08/15/16 01:45) Urine Culture (08/15/16 01:30) Ceftriaxone Inj (Rocephin Inj) (08/15/16 02:30) Labs Laboratory Tests Test 08/15/16 08/15/16 01:25 01:30 White Blood Count 8.9 TH/MM3 Red Blood Count 4.71 MIL/MM3 Hemoglobin 13.3 GM/DL Hematocrit 40.2 % Mean Corpuscular Volume 85.4 FL Mean Corpuscular Hemoglobin 28.3 PG Mean Corpuscular Hemoglobin 33.2 % Concent Red Cell Distribution Width 13.2 % Platelet Count 266 TH/MM3 Mean Platelet Volume 8.4 FL Neutrophils (%) (Auto) 54.2 % Lymphocytes (%) (Auto) 31.6 % Monocytes (%) (Auto) 7.7 % Eosinophils (%) (Auto) 5.8 % Basophils (%) (Auto) 0.7 % Neutrophils # (Auto) 4.8 TH/MM3 Lymphocytes # (Auto) 2.8 TH/MM3 Monocytes # (Auto) 0.7 TH/MM3 Eosinophils # (Auto) 0.5 TH/MM3 Basophils # (Auto) 0.1 TH/MM3 CBC Comment DIFF FINAL Differential Comment Prothrombin Time 10.5 SEC Prothromb Time International 1.0 RATIO Ratio Activated Partial 30.1 SEC Thromboplast Time Sodium Level 139 MEQ/L Potassium Level 3.4 MEQ/L Chloride Level 101 MEQ/L Carbon Dioxide Level 32.1 MEQ/L Anion Gap 6 MEQ/L Blood Urea Nitrogen 12 MG/DL Creatinine 0.73 MG/DL Estimat Glomerular Filtration 99 ML/MIN Rate Random Glucose 100 MG/DL Calcium Level 8.8 MG/DL Total Bilirubin 0.2 MG/DL Aspartate Amino Transf 14 U/L (AST/SGOT) Alanine Aminotransferase 24 U/L (ALT/SGPT) Alkaline Phosphatase 89 U/L Total Protein 7.9 GM/DL Albumin 3.6 GM/DL Lipase 76 U/L Urine Color LIGHT-YELLOW Urine Turbidity HAZY Urine pH 8.5 Urine Specific [place] 1.017 Urine Protein TRACE mg/dL Urine Glucose (UA) NEG mg/dL Urine Ketones NEG mg/dL Urine Occult Blood NEG Urine Nitrite NEG Urine Bilirubin NEG Urine Urobilinogen LESS THAN 2.0 MG/DL Urine Leukocyte Esterase LARGE Urine RBC 4 /hpf Urine WBC 17 /hpf Urine Squamous Epithelial 4 /hpf Cells Urine Bacteria RARE /hpf Urine Mucus FEW /lpf Microscopic Urinalysis Comment CULTURE INDICATED MDM Medical Decision Making Medical Screen Exam Complete: Yes Emergency Medical Condition: Yes Interpretation(s) Vital Signs Date Time Temp Pulse Resp B/P Pulse Ox O2 Delivery O2 Flow Rate FiO2 08/15/16 01:30 98.6 95 22 115/86 95 Room Air 08/15/16 01:15 95 22 08/15/16 00:30 98.3 105 20 140/85 96 Room Air Laboratory Tests Test 08/15/16 08/15/16 01:25 01:30 White Blood Count 8.9 TH/MM3 (4.0-11.0) Red Blood Count 4.71 MIL/MM3 (4.00-5.30) Hemoglobin 13.3 GM/DL (11.6-15.3) Hematocrit 40.2 % (35.0-46.0) Mean Corpuscular Volume 85.4 FL (80.0-100.0) Mean Corpuscular Hemoglobin 28.3 PG (27.0-34.0) Mean Corpuscular Hemoglobin 33.2 % Concent (32.0-36.0) Red Cell Distribution Width 13.2 % (11.6-17.2) Platelet Count 266 TH/MM3 (150-450) Mean Platelet Volume 8.4 FL (7.0-11.0) Neutrophils (%) (Auto) 54.2 % (16.0-70.0) Lymphocytes (%) (Auto) 31.6 % (9.0-44.0) Monocytes (%) (Auto) 7.7 % (0.0-8.0) Eosinophils (%) (Auto) 5.8 % (0.0-4.0) Basophils (%) (Auto) 0.7 % (0.0-2.0) Neutrophils # (Auto) 4.8 TH/MM3 (1.8-7.7) Lymphocytes # (Auto) 2.8 TH/MM3 (1.0-4.8) Monocytes # (Auto) 0.7 TH/MM3 (0-0.9) Eosinophils # (Auto) 0.5 TH/MM3 (0-0.4) Basophils # (Auto) 0.1 TH/MM3 (0-0.2) CBC Comment DIFF FINAL Differential Comment Prothrombin Time 10.5 SEC (9.8-11.6) Prothromb Time International 1.0 RATIO Ratio Activated Partial 30.1 SEC Thromboplast Time (24.3-30.1) Sodium Level 139 MEQ/L (136-145) Potassium Level 3.4 MEQ/L (3.5-5.1) Chloride Level 101 MEQ/L (98-107) Carbon Dioxide Level 32.1 MEQ/L (21.0-32.0) Anion Gap 6 MEQ/L (5-15) Blood Urea Nitrogen 12 MG/DL (7-18) Creatinine 0.73 MG/DL (0.50-1.00) Estimat Glomerular Filtration 99 ML/MIN (>89) Rate Random Glucose 100 MG/DL (74-106) Calcium Level 8.8 MG/DL (8.5-10.1) Total Bilirubin 0.2 MG/DL (0.2-1.0) Aspartate Amino Transf 14 U/L (15-37) (AST/SGOT) Alanine Aminotransferase 24 U/L (10-53) (ALT/SGPT) Alkaline Phosphatase 89 U/L (45-117) Total Protein 7.9 GM/DL (6.4-8.2) Albumin 3.6 GM/DL (3.4-5.0) Lipase 76 U/L (73-393) Urine Color LIGHT-YELLOW (YELLW/STRAW) Urine Turbidity HAZY (CLEAR) Urine pH 8.5 (5.0-8.5) Urine Specific [place] 1.017 (1.002-1.035) Urine Protein TRACE mg/dL (NEG-TRACE) Urine Glucose (UA) NEG mg/dL (NEG) Urine Ketones NEG mg/dL (NEG) Urine Occult Blood NEG (NEG) Urine Nitrite NEG (NEG) Urine Bilirubin NEG (NEG) Urine Urobilinogen LESS THAN 2.0 MG/DL (LESS THAN 2.0) Urine Leukocyte Esterase LARGE (NEG) Urine RBC 4 /hpf (0-3) Urine WBC 17 /hpf (0-5) Urine Squamous Epithelial 4 /hpf (0-5) Cells Urine Bacteria RARE /hpf (NONE) Urine Mucus FEW /lpf (OCC) Microscopic Urinalysis Comment CULTURE INDICATED Differential Diagnosis Pyelonephritis, kidney stone, musculoskeletal pain Narrative Course Patient is a 56-year-old female who presents to emergency with complaints of right-sided flank pain. She reports acute onset of pain around 11 PM tonight. Patient with no history of kidney stones in the past. CBC, BMP, UA ordered for further evaluation symptoms. CT abdomen and pelvis ordered for further evaluation of possible kidney stone. Patient reports that she is tolerated morphine in the past, will give patient a dose of morphine. Patient reevaluated, patient feeling much better after medication given to her. Reviewed all labs and all studies with patient including all findings. Patient with urinary tract infection vs pyelonephritis. Patient understands need to follow up with cultures from today. Will start patient on antibiotics. Will have patient follow-up with her primary care doctor and return to ER as needed Diagnosis Primary Impression: Flank pain Additional Impression: UTI (urinary tract infection) Qualified Code: N30.01 - Acute cystitis with hematuria Patient Instructions: Narcotic given in the ED, General Instructions Additional Instructions: Please return to ER as needed Please follow up with cultures from today Med/Other Pt SpecificInfo: Prescription(s) given Scripts Levofloxacin (Levaquin)750 Mg [id number] Mg PO DAILY 7 Days Ref 0 Prov:[place] Ignacio DO 08/15/16 Disposition: 01 DISCHARGE HOME Condition: Stable [place] Ignacio DO Aug 15, 2016 01:36 Condition: Stable [place] Ignacio DO Aug 15, 2016 01:36
[2016-08-15] MEDS ORDERED: ONDANSETRON HCL 4 MG/2 ML VIAL IVP ONE (01:45)
[2016-08-15] MEDS ORDERED: SODIUM CHLORIDE 0.9% FLUSH 5 ML FLUSH IVF PRN (01:45)
[2016-08-15] MEDS ORDERED: MORPHINE SULFATE 4 MG/ML INJ IV PUSH ONE (01:45)
[2016-08-15 01:48] LABS: AUTOMATED NEUTROPHIL # 4.8 TH/MM3 (1.8-7.7); BASOPHIL # 0.1 TH/MM3 (0-0.2); BASOPHIL % 0.7 % (0.0-2.0); EOSINOPHIL # 0.5 TH/MM3 (0-0.4); EOSINOPHIL % 5.8 % (0.0-4.0); HEMATOCRIT 40.2 % (35.0-46.0); HEMO FLAGS DIFF FINAL; LYMPH % 31.6 % (9.0-44.0); LYMPHOCYTE # 2.8 TH/MM3 (1.0-4.8); MEAN CELL VOLUME 85.4 FL (80.0-100.0); MEAN CORPUSCULAR HEMOGLOBIN 28.3 PG (27.0-34.0); MEAN CORPUSCULAR HGB CONC 33.2 % (32.0-36.0); MONO % 7.7 % (0.0-8.0); NEUT % 54.2 % (16.0-70.0); PLATELET COUNT 266 TH/MM3 (150-450); RED BLOOD COUNT 4.71 MIL/MM3 (4.00-5.30); RED CELL DISTRIBUTION WIDTH 13.2 % (11.6-17.2); WHITE BLOOD COUNT 8.9 TH/MM3 (4.0-11.0)
[2016-08-15 02:09] LABS: BACTERIA, URINE RARE /hpf; BLOOD, URINE NEG (NEG); COMMENT (UR) CULTURE INDICATED; CULTURE IF INDICATED CULTURE INDICATED; GLUCOSE,URINE NEG (NEG); KETONE, URINE NEG (NEG); MUCUS URINE FEW /lpf (OCC); NITRITE,URINE NEG (NEG); PH, URINE 8.5 (5.0-8.5); SQUAMOUS EPITHELIAL CELL URINE 4 /hpf (0-5); URINE COLOR LIGHT-YELLOW (YELLW/STRAW)
[2016-08-15 02:10] LABS: ALT (GPT) 24 U/L (10-53); ANION GAP 6 MEQ/L (5-15); AST (GOT) 14 U/L (15-37); BICARBONATE 32.1 MEQ/L (21.0-32.0); BLOOD UREA NITROGEN 12 MG/DL (7-18); CHLORIDE 101 MEQ/L (98-107); GLOMERULAR FILTRATION RATE 99 ML/MIN (>89); POTASSIUM 3.4 MEQ/L (3.5-5.1); SODIUM (NA) 139 MEQ/L (136-145)
[2016-08-15 02:12] LABS: ALKALINE PHOSPHATASE 89 U/L (45-117); APTT (PATIENT) 30.1 SEC (24.3-30.1); PROTHROMBIN TIME - PATIENT 10.5 SEC (9.8-11.6); TOTAL BILIRUBIN ADULT 0.2 MG/DL (0.2-1.0)
[2016-08-15] MEDS ORDERED: cefTRIAXone INJ 1,000 MG in SODIUM CHLORIDE 0.9% INJ 100 ML IV ONE (02:30)
--- NOTE | 2016-08-15 02:31 | RADRPT ---
EXAM DATE/TIME: 08/15/2016 01:46 [facility] COMPARISON: No previous studies available for comparison. INDICATIONS : Right flank pain. ORAL CONTRAST: No oral contrast ingested. RADIATION DOSE: 17.31 CTDIvol (mGy) MEDICAL HISTORY : Deep venous thrombosis. Hypertension. Chronic obstructive pulmonary disease. SURGICAL HISTORY : Tubal ligation. ENCOUNTER: Initial ACUITY: 1 day PAIN SCALE: 8/10 LOCATION: Right flank TECHNIQUE: Volumetric scanning of the abdomen and pelvis was performed. Using automated exposure control and ad justment of the mA and/or kV according to patient size, radiation dose was kept as low as reasonably achievable to obtain optimal diagnostic quality images. FINDINGS: LOWER LUNGS: The visualized lower lungs are clear. LIVER: Decreased attenuation without lesion. There is no dilation of the biliary tree. No calcified gallst ones. SPLEEN: Normal size without lesion. PANCREAS: Within normal limits. KIDNEYS: Normal in size and shape. There is no mass, stone, or hydronephrosis. ADRENAL GLANDS: Within normal limits. VASCULAR: There is no aortic aneurysm. BOWEL/MESENTERY: Extensive diverticulosis without diverticulitis. There is no free intraperitoneal air or fluid. ABDOMINAL WALL: Within normal limits. RETROPERITONEUM: There is no lymphadenopathy. BLADDER: No wall thickening or mass. REPRODUCTIVE: Within normal limits. INGUINAL: There is no lymphadenopathy or hernia. MUSCULOSKELETAL: Within normal limits for patient age. CONCLUSION: 1. Diverticulosis without diverticulitis. 2. Hepatic steatosis. Liban Arriaga MD on August 15, 2016 at 2:28 Board Certified Radiologist. This report was verified electronically.
[2016-08-15] MEDS ORDERED: MACR100C2 PO (02:38)
[2016-08-15] MEDS ORDERED: LEVA750T PO (02:41)
[2016-08-15] MEDS ORDERED: ACETAMINOPHEN 325 MG TAB PO ONE (04:15)
[2016-08-19] MEDS ORDERED: DICL1GEL TOPICAL (09:23)
[2016-09-27] MEDS ORDERED: ATOR40TA16 PO (08:14)
[2016-12-07] MEDS ORDERED: HYDR12.57 PO (09:39)
[2016-12-07] MEDS ORDERED: ATOR40TA16 PO (09:39)
[2016-12-07] MEDS ORDERED: METF850 PO (09:39)
[2016-12-07] MEDS ORDERED: AMLO10 PO (09:39)
[2016-12-07] MEDS ORDERED: DICL1GEL7 TOPICAL (09:39)
[2016-12-20] MEDS ORDERED: ATOR40TA16 PO (09:32)
[2016-12-20] MEDS ORDERED: HYDR12.57 PO (09:33)
[2016-12-20] MEDS ORDERED: SPIRCAP INH (09:34)
== END 2016-08-15 04:25 | disposition home or self-care (01) ==
LOC: NEPC 00:26
DX: N39.0 Urinary tract infection, site not specified (principal); B96.89 Other specified bacterial agents as the cause of diseases classified elsewhere; Z79.01 Long term (current) use of anticoagulants; D64.9 Anemia, unspecified; I10 Essential (primary) hypertension; J44.9 Chronic obstructive pulmonary disease, unspecified; B95.1 Streptococcus, group B, as the cause of diseases classified elsewhere; Z86.718 Personal history of other venous thrombosis and embolism
CPT/HCPCS: 74176; 80053; 81001; 83690; 85025; 85610; 85730; 86403; 87086; 96361; 96365; 96375; 99284; J0696; J2270; J2405; J7030

== ENCOUNTER 2016-09-14 17:13 | Emergency (ER) | payer OTHER ==
[~2016-09-14] VITALS: Ht 172.7 cm; Wt 135.0 kg
[~2016-09-14 17:13] MED LIST changes: +DICL1GEL TOPICAL; +LEVA750T PO
[2016-09-14 17:14] VITALS: BP 136/89; PULSE 91; RESP 14; TEMP 97.8; O2SAT 94
--- NOTE | 2016-09-14 19:58 | PD ---
HPI Chief Complaint: Chest Pain Time Seen by Provider: 19:58 Travel History International Travel<30 days: No Contact w/Intl Traveler<30days: No Traveled to known affect area: No History of Present Illness HPI 56-year-old female presents to the emergency department for evaluation of midsternal chest pain, cough, congestion that started 2 days ago. Patient reports history of COPD, diverticulitis. Patient is concerned she has pneumonia. She states she has had pneumonia twice in the past. She states the chest pain is not worse with deep breathing. Patient denies any fevers. Patient denies any cardiac history. PFSH Past Medical History Hx Anticoagulant Therapy: Yes Anemia: Yes Arthritis: Yes Autoimmune Disease: No Blood Disorders: No Bipolar Disorder: Yes Anxiety: Yes Depression: Yes Heart Rhythm Problems: No Cancer: No Cardiovascular Problems: Yes (HIGH BP) High Cholesterol: No Chemotherapy: No Chest Pain: No Congestive Heart Failure: No COPD: Yes Cerebrovascular Accident: Yes Diabetes: Yes Diminished Hearing: No Deep Vein Thrombosis: Yes Endocrine: No Gastrointestinal Disorders: No Genitourinary: No Headaches: Yes Hepatitis: Yes Hypertension: Yes Immune Disorder: No Implanted Vascular Access Dvce: No Musculoskeletal: Yes (RT KNEE CONTUSION AND LEFT THUMB FX 06/06/06) Neurologic: Yes Psychiatric: No Reproductive: No Respiratory: Yes Immunizations Current: Yes Myocardial Infarction: No ?: Not Menopausal: Yes : 3 Para: 3 Tubal Ligation: Yes Past Surgical History Abdominal Surgery: No Arteriovenous Shunt: No Cardiac Surgery: No Ear Surgery: No Endocrine Surgery: No Eye Surgery: No Genitourinary Surgery: No Gynecologic Surgery: Yes (TUBAL LIGATION) Hysterectomy: No Insulin Pump: No Joint Replacement: No Neurologic Surgery: No Oral Surgery: No Pacemaker: No Thoracic Surgery: No Tonsillectomy: Yes Valve Replacement: Yes Other Surgery: Yes Social History Alcohol Use: No Tobacco Use: No Substance Use: No Allergies-Medications (Allergen,Severity, Reaction): Coded Allergies: Darvocet-N 100 (Verified Allergy, Severe, NAUSEA, 09/14/16) Toradol (Verified Allergy, Intermediate, rash, 09/14/16) Flexeril (Verified Allergy, Unknown, 09/14/16) Robaxin (Verified Adverse Reaction, Severe, DIARRHEA, 09/14/16) *MDRO Multi-Drug Resistant Organism (Verified Adverse Reaction, Unknown, ) 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 Reported Meds & Prescriptions Reported Meds & Active Scripts Active Azithromycin 250 Mg Tab 250 Mg PO DAILY Prednisone 20 Mg Tab 40 Mg PO DAILY 4 Days Take 40 mg (2 tablets) daily for 5 days Voltaren Topical (Diclofenac Topical) 1% Gel 1 Applic TOPICAL QID Norvasc (Amlodipine Besylate) 10 Mg Tab 10 Mg PO DAILY Glucophage (Metformin HCl) 850 Mg Tab 850 Mg PO DAILY With a meal Spiriva Handihaler (Tiotropium Inh) 18 Mcg Cap 18 Mcg INH DAILY 1 capsule = 18 mcg Caltrate 600+D (Calcium Carbonate-Cholecalciferol) 600-800 Mg-Unit Tab 1 Tab PO BID Hydrochlorothiazide 12.5 Mg Cap 12.5 Mg PO DAILY Reported Duoneb (Ipratropium-Albuterol Neb) 0.5-2.5 Mg/3 Ml Neb 1 Nebule INH Q4HR NEB Vopac Mds (Diclofenac Sodium (Topical)) 1.5 % Kit 4 Gm TOPICAL TID Atorvastatin (Atorvastatin Calcium) 40 Mg Tab 40 Mg PO HS Albuterol Neb (Albuterol Sulfate) 2.5 Mg/3 Ml Neb 2.5 Mg NEB Q4HR NEB While awake Proair Hfa 8.5 GM Inh (Albuterol Sulfate) 90 Mcg/Act Aer 1 Puff INH Q4H PRN 108 mcg/actuation Review of Systems Except as stated in HPI: all other systems reviewed are Neg Physical Exam Narrative GENERAL: Well-developed well-nourished female patient, ambulatory. Afebrile. SKIN: Warm and dry. HEAD: Normocephalic. Atraumatic. EYES: No scleral icterus. No injection or drainage. NECK: Supple, trachea midline. No JVD or lymphadenopathy. CARDIOVASCULAR: Regular rate and rhythm without murmurs, gallops, or rubs. RESPIRATORY: Breath sounds equal bilaterally. No accessory muscle use. GASTROINTESTINAL: Abdomen soft, non-tender, nondistended. MUSCULOSKELETAL: No cyanosis, or edema. Midsternal chest pain is reproduced with palpation. BACK: Nontender without obvious deformity. No CVA tenderness. Data Data Last Documented VS Vital Signs Date Time Temp Pulse Resp B/P Pulse Ox O2 Delivery O2 Flow Rate FiO2 09/14/16 21:09 92 18 93 Room Air 09/14/16 21:09 147/81 09/14/16 17:14 97.8 Orders Electrocardiogram (09/14/16 19:57) Basic Metabolic Panel (Bmp) (09/14/16 19:57) Ckmb (Isoenzyme) Profile (09/14/16 19:57) Complete Blood Count With Diff (09/14/16 19:57) Magnesium (Mg) (09/14/16 19:57) Troponin I (09/14/16 19:57) Chest, Single Ap (09/14/16 19:57) CKMB (09/14/16 20:40) CKMB% (09/14/16 20:40) Methylprednisolone So Succ Inj (Solumedr (09/14/16 22:30) Azithromycin (Zithromax) (09/14/16 22:30) Acetamin-Hydrocod 325-5 Mg ([place] 5-325 (09/14/16 22:30) Albuterol Hfa Inh (Proair Hfa Inh) (09/14/16 22:30) Labs Laboratory Tests Test 09/14/16 20:40 White Blood Count 7.9 TH/MM3 Red Blood Count 4.78 MIL/MM3 Hemoglobin 13.6 GM/DL Hematocrit 41.8 % Mean Corpuscular Volume 87.5 FL Mean Corpuscular Hemoglobin 28.3 PG Mean Corpuscular Hemoglobin 32.4 % Concent Red Cell Distribution Width 13.0 % Platelet Count 263 TH/MM3 Mean Platelet Volume 8.5 FL Neutrophils (%) (Auto) 49.5 % Lymphocytes (%) (Auto) 38.0 % Monocytes (%) (Auto) 7.1 % Eosinophils (%) (Auto) 4.2 % Basophils (%) (Auto) 1.2 % Neutrophils # (Auto) 3.9 TH/MM3 Lymphocytes # (Auto) 3.0 TH/MM3 Monocytes # (Auto) 0.6 TH/MM3 Eosinophils # (Auto) 0.3 TH/MM3 Basophils # (Auto) 0.1 TH/MM3 CBC Comment DIFF FINAL Differential Comment Sodium Level 137 MEQ/L Potassium Level 3.5 MEQ/L Chloride Level 100 MEQ/L Carbon Dioxide Level 29.4 MEQ/L Anion Gap 8 MEQ/L Blood Urea Nitrogen 11 MG/DL Creatinine 0.71 MG/DL Estimat Glomerular Filtration 102 ML/MIN Rate Random Glucose 87 MG/DL Calcium Level 9.2 MG/DL Magnesium Level 2.2 MG/DL Total Creatine Kinase 146 U/L Creatine Kinase MB 1.4 NG/ML Troponin I LESS THAN 0.02 NG/ML MDM Medical Decision Making Medical Screen Exam Complete: Yes Emergency Medical Condition: Yes Medical Record Reviewed: Yes Differential Diagnosis COPD exacerbation versus Bronchitis versus URI versus pneumonia versus ACS Narrative Course 56-year-old female presents to the emergency department for evaluation of midsternal chest pain, cough for 2 days. EKG, CBC, BMP, magnesium, CK, troponin , chest x-ray ordered and pending. Workup is initiated in triage. Patient will be moved to medical pod for further evaluation and disposition. Scripts Azithromycin 250 Mg [id number] Mg PO DAILY #4 TAB Ref 0 Prov:Sudheer Marsh MD 09/14/16 Prednisone 20 Mg Tab40 Mg PO DAILY 4 Days Ref 0 Take 40 mg (2 tablets) daily for 5 days Prov:Sudheer Marsh MD 09/14/16 Michelle Avalos Sep 14, 2016 19:58
[2016-09-14 21:09] VITALS: BP 147/81; PULSE 82; RESP 20; O2SAT 95
[2016-09-14 21:17] LABS: AUTOMATED NEUTROPHIL # 3.9 TH/MM3 (1.8-7.7); BASOPHIL # 0.1 TH/MM3 (0-0.2); BASOPHIL % 1.2 % (0.0-2.0); EOSINOPHIL # 0.3 TH/MM3 (0-0.4); EOSINOPHIL % 4.2 % (0.0-4.0); HEMATOCRIT 41.8 % (35.0-46.0); HEMO FLAGS DIFF FINAL; MEAN CELL VOLUME 87.5 FL (80.0-100.0); MEAN CORPUSCULAR HEMOGLOBIN 28.3 PG (27.0-34.0); MEAN CORPUSCULAR HGB CONC 32.4 % (32.0-36.0); MONO % 7.1 % (0.0-8.0); NEUT % 49.5 % (16.0-70.0); PLATELET COUNT 263 TH/MM3 (150-450); RED BLOOD COUNT 4.78 MIL/MM3 (4.00-5.30); WHITE BLOOD COUNT 7.9 TH/MM3 (4.0-11.0)
[2016-09-14 21:35] LABS: ANION GAP 8 MEQ/L (5-15); BICARBONATE 29.4 MEQ/L (21.0-32.0); BLOOD UREA NITROGEN 11 MG/DL (7-18); CHLORIDE 100 MEQ/L (98-107); GLOMERULAR FILTRATION RATE 102 ML/MIN (>89); MAGNESIUM 2.2 MG/DL (1.5-2.5); POTASSIUM 3.5 MEQ/L (3.5-5.1); SODIUM (NA) 137 MEQ/L (136-145)
[2016-09-14 21:41] LABS: CREATINE KINASE 146 U/L (26-192)
--- NOTE | 2016-09-14 21:46 | RADRPT ---
EXAM DATE/TIME: 09/14/2016 18:31 [facility] COMPARISON: CT PULMONARY ANGIOGRAM, August 09, 2016, 14:46. INDICATIONS : Chest pain, cough for 3 days MEDICAL HISTORY : None. SURGICAL HISTORY : None. ENCOUNTER: Initial ACUITY: 3 days PAIN SCORE: 8/10 LOCATION: Bilateral chest FINDINGS: A single view of the chest demonstrates atelectasis in upper left lung similar to prior study. No inf iltrate or effusion. Heart size upper limits normal. CONCLUSION: 1. Stable left upper lobe scarring. No acute findings. Multiple calcified granulomata in the lungs. Tim Leone MD on September 14, 2016 at 21:43 Board Certified Radiologist. This report was verified electronically.
[2016-09-14 21:53] LABS: CKMB 1.4 NG/ML (0.5-3.6)
[2016-09-14] MEDS ORDERED: ALBUTEROL SULFATE 90 MCG/ACT HFA 8 GM INHALER INH ONE (22:30)
[2016-09-14] MEDS ORDERED: methylPREDNISolone SOD SUCC 125 MG/2 ML VIAL IVP ONE (22:30)
[2016-09-14] MEDS ORDERED: AZITHROMYCIN 250 MG TAB PO ONE (22:30)
[2016-09-14] MEDS ORDERED: ACETAMINOPHEN/HYDROcodone 325 MG/5 MG TAB PO ONE (22:30)
[2016-09-14] MEDS ORDERED: AZIT250T3 PO (22:35)
[2016-09-14] MEDS ORDERED: PRED20 PO (22:35)
--- NOTE | 2016-09-14 22:36 | PD ---
Data Data Last Documented VS Vital Signs Date Time Temp Pulse Resp B/P Pulse Ox O2 Delivery O2 Flow Rate FiO2 09/14/16 21:09 92 18 93 Room Air 09/14/16 21:09 147/81 09/14/16 17:14 97.8 Orders Electrocardiogram (09/14/16 19:57) Basic Metabolic Panel (Bmp) (09/14/16 19:57) Ckmb (Isoenzyme) Profile (09/14/16 19:57) Complete Blood Count With Diff (09/14/16 19:57) Magnesium (Mg) (09/14/16 19:57) Troponin I (09/14/16 19:57) Chest, Single Ap (09/14/16 19:57) CKMB (09/14/16 20:40) CKMB% (09/14/16 20:40) Labs Laboratory Tests Test 09/14/16 20:40 White Blood Count 7.9 TH/MM3 Red Blood Count 4.78 MIL/MM3 Hemoglobin 13.6 GM/DL Hematocrit 41.8 % Mean Corpuscular Volume 87.5 FL Mean Corpuscular Hemoglobin 28.3 PG Mean Corpuscular Hemoglobin 32.4 % Concent Red Cell Distribution Width 13.0 % Platelet Count 263 TH/MM3 Mean Platelet Volume 8.5 FL Neutrophils (%) (Auto) 49.5 % Lymphocytes (%) (Auto) 38.0 % Monocytes (%) (Auto) 7.1 % Eosinophils (%) (Auto) 4.2 % Basophils (%) (Auto) 1.2 % Neutrophils # (Auto) 3.9 TH/MM3 Lymphocytes # (Auto) 3.0 TH/MM3 Monocytes # (Auto) 0.6 TH/MM3 Eosinophils # (Auto) 0.3 TH/MM3 Basophils # (Auto) 0.1 TH/MM3 CBC Comment DIFF FINAL Differential Comment Sodium Level 137 MEQ/L Potassium Level 3.5 MEQ/L Chloride Level 100 MEQ/L Carbon Dioxide Level 29.4 MEQ/L Anion Gap 8 MEQ/L Blood Urea Nitrogen 11 MG/DL Creatinine 0.71 MG/DL Estimat Glomerular Filtration 102 ML/MIN Rate Random Glucose 87 MG/DL Calcium Level 9.2 MG/DL Magnesium Level 2.2 MG/DL Total Creatine Kinase 146 U/L Creatine Kinase MB 1.4 NG/ML Troponin I LESS THAN 0.02 NG/ML [facility] Medical Record Reviewed: Yes Supervised Visit with NORIS: Yes Narrative Course CBC & BMP Diagram 09/14/16 20:40 Tn < 0.02 EKG sinus rate 79 no ischemic injury pattern Last 24 hours Impressions Chest X-Ray 09/14/161956 Signed Impressions: Service Date/Time: Wednesday, September 14, 2016 18:31 - CONCLUSION: 1. Stable left upper lobe scarring. No acute findings. Multiple calcified granulomata in the lungs. Tim Leone MD I, Dr. Marsh, have reviewed the advance practice practitioner's documentation and am in agreement, met with the patient face to face, made the diagnosis, and the medical decision making was done by me. *My assessment and Findings: Cough and wheezing is present. Coronary disease is considered reasonably safely excluded. Albuterol, steroids and azithromycin provided. Patient also has chronic pain. Return precautions discussed. Patient has excellent outside follow up. Return precautions discussed. Diagnosis Primary Impression: COPD (chronic obstructive pulmonary disease) Qualified Code: J41.1 - Mucopurulent chronic bronchitis Additional Impression: Cough Referrals: Primary Care Physician 2 days Additional Instruction: You have a choice when it comes to health care, and we are glad that you chose [facility]. Hopefully, we have met your expectations on today's visit. You are welcome to return to [facility] at any time, as we are committed to meeting the health care needs of our community. Med/Other Pt SpecificInfo: Prescription(s) given Scripts Azithromycin 250 Mg [id number] Mg PO DAILY #4 TAB Ref 0 Prov:Sudheer Marsh MD 09/14/16 Prednisone 20 Mg Tab40 Mg PO DAILY 4 Days Ref 0 Take 40 mg (2 tablets) daily for 5 days Prov:Sudheer Marsh MD 09/14/16 Disposition: 01 DISCHARGE HOME Condition: Stable Sudheer Marsh MD Sep 14, 2016 22:35
--- NOTE | 2016-09-15 04:53 | EKG ---
Date Performed: 09/14/2016 Time Performed: 20:23:46 PTAGE: 56 years EKG: Sinus rhythm NONSPECIFIC T-WAVE ABNORMALITY BORDERLINE ECG NO SIGNIFICANT CHANGE FROM PRIOR ELECTROCARDIOGRAM. PREVIOUS TRACING : 08/09/2016 20.04 DOCTOR: Flo Payne Interpretating Date/Time 09/15/2016 04:53:26
[2016-09-15] MEDS ORDERED: ALBUAER3 INH (18:44)
[2016-09-15] MEDS ORDERED: SPIRCAP INH (18:44)
[2016-09-27] MEDS ORDERED: ATOR40TA16 PO (08:14)
[2016-12-07] MEDS ORDERED: AMLO10 PO (09:39)
[2016-12-07] MEDS ORDERED: METF850 PO (09:39)
[2016-12-07] MEDS ORDERED: DICL1GEL7 TOPICAL (09:39)
[2016-12-07] MEDS ORDERED: ATOR40TA16 PO (09:39)
[2016-12-07] MEDS ORDERED: HYDR12.57 PO (09:39)
[2016-12-20] MEDS ORDERED: ATOR40TA16 PO (09:32)
[2016-12-20] MEDS ORDERED: HYDR12.57 PO (09:33)
[2016-12-20] MEDS ORDERED: SPIRCAP INH (09:34)
== END 2016-09-15 00:04 | disposition home or self-care (01) ==
LOC: NETRI 17:13 → NEPE 09-15 00:04
DX: J44.9 Chronic obstructive pulmonary disease, unspecified (principal); R05 Cough; G89.29 Other chronic pain; R94.31 Abnormal electrocardiogram [ECG] [EKG]; D64.9 Anemia, unspecified; E11.9 Type 2 diabetes mellitus without complications; I10 Essential (primary) hypertension; Z79.01 Long term (current) use of anticoagulants
CPT/HCPCS: 71010; 80048; 82550; 82552; 83735; 84484; 85025; 93005; 96374; 99285; J2930

== ENCOUNTER 2016-11-10 16:22 | Emergency (ER) | payer OTHER ==
[~2016-11-10] VITALS: Ht 172.7 cm; Wt 140.0 kg
[~2016-11-10 16:22] MED LIST changes: +AZIT250T3 PO; -LEVA750T PO; +PRED20 PO
[2016-11-10 16:24] VITALS: BP 139/101; PULSE 84; RESP 17; TEMP 98; O2SAT 95
[2016-11-10] MEDS ORDERED: ALPR2TAB3 PO (17:20)
--- NOTE | 2016-11-10 17:37 | PD ---
HPI . multiple complaints Chief Complaint: Pain: Acute or Chronic Time Seen by Provider: 17:37 Travel History International Travel<30 days: No Contact w/Intl Traveler<30days: No Traveled to known affect area: No History of Present Illness HPI 56-year-old female here with multiple medical complaints. Patient says that she has the feeling of blood clots in her lower extremities. She says she's had this in the past was taken off anticoagulants and told to come to the emergency department if her symptoms return. She is also complaining of right arm pain as well as left arm numbness that has been present for the past several days. She tells me that she's had a history of stroke in the past. She also has been coughing recently. PFSH Past Medical History Hx Anticoagulant Therapy: Yes Anemia: Yes Arthritis: Yes Autoimmune Disease: No Blood Disorders: No Bipolar Disorder: Yes Anxiety: Yes Depression: Yes Heart Rhythm Problems: No Cancer: No Cardiovascular Problems: Yes (HIGH BP) High Cholesterol: No Chemotherapy: No Chest Pain: No Congestive Heart Failure: No COPD: Yes Cerebrovascular Accident: Yes Diabetes: Yes Patient Takes Glucophage: Yes Diminished Hearing: No Deep Vein Thrombosis: Yes Endocrine: No Gastrointestinal Disorders: No Genitourinary: No Headaches: Yes Hepatitis: Yes Hypertension: Yes Immune Disorder: No Implanted Vascular Access Dvce: No Musculoskeletal: Yes (RT KNEE CONTUSION AND LEFT THUMB FX 06/06/06) Neurologic: Yes Psychiatric: No Reproductive: No Respiratory: Yes (copd) Immunizations Current: Yes Myocardial Infarction: No Tetanus Vaccination: < 5 Years Influenza Vaccination: Yes ?: Not Menopausal: Yes : 3 Para: 3 Tubal Ligation: Yes Past Surgical History Abdominal Surgery: No Arteriovenous Shunt: No Cardiac Surgery: No Ear Surgery: No Endocrine Surgery: No Eye Surgery: No Genitourinary Surgery: No Gynecologic Surgery: Yes (TUBAL LIGATION) Hysterectomy: No Insulin Pump: No Joint Replacement: No Neurologic Surgery: No Oral Surgery: No Pacemaker: No Thoracic Surgery: No Tonsillectomy: Yes Valve Replacement: Yes Other Surgery: Yes Social History Alcohol Use: No Tobacco Use: No Substance Use: No Allergies-Medications (Allergen,Severity, Reaction): Coded Allergies: Darvocet-N 100 (Verified Allergy, Severe, NAUSEA, 11/10/16) Toradol (Verified Allergy, Intermediate, rash, 11/10/16) Flexeril (Verified Allergy, Unknown, 11/10/16) Robaxin (Verified Adverse Reaction, Severe, DIARRHEA, 11/10/16) *MDRO Multi-Drug Resistant Organism (Verified Adverse Reaction, Unknown, ) 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 Norvasc (Amlodipine Besylate) 10 Mg Tab 10 Mg PO DAILY Glucophage (Metformin HCl) 850 Mg Tab 850 Mg PO DAILY With a meal Hydrochlorothiazide 12.5 Mg Cap 12.5 Mg PO DAILY Reported Alprazolam 2 Mg Tab 2 Mg PO HS Review of Systems General / Constitutional: No: Fever Eyes: No: Visual changes HENT: No: Headaches Cardiovascular: No: Chest Pain or Discomfort Respiratory: Positive: Cough, No: Shortness of Breath Gastrointestinal: No: Abdominal Pain Genitourinary: No: Dysuria Musculoskeletal: Positive: Weakness, No: Pain Skin: No Rash Neurologic: No: Weakness Psychiatric: No: Depression Endocrine: No: Polydipsia Hematologic/Lymphatic: No: Easy Bruising Physical Exam Narrative GENERAL: AAO x 3, no acute distress, Well-nourished, well-developed patient. SKIN: Warm and dry. No visible rashes or bruising. HEAD: Normocephalic and atraumatic. EYES: No scleral icterus. No injection or drainage. EOM intact, PERRLA ENT: No nasal drainage noted. Mucous membranes pink. Airway patent. NECK: Supple, trachea midline. No JVD. CARDIOVASCULAR: Regular rate and rhythm without murmurs, gallops, or rubs. RESPIRATORY: Breath sounds equal bilaterally. No accessory muscle use. No rhonchi or rales. wheezing on expiration. Slight rhonchi in the right side of the lungs GASTROINTESTINAL: Abdomen soft, non-tender, nondistended. EXTREMITIES: No cyanosis or edema. corporate compliance manager strength diminished on the right. Muscle strength in upper and lower extremities less than on the right. BACK: Nontender without obvious deformity. No CVA tenderness. PSYCH: AAO x 3, normal affect. Data Data Last Documented VS Vital Signs Date Time Temp Pulse Resp B/P Pulse Ox O2 Delivery O2 Flow Rate FiO2 11/10/16 16:24 98.0 84 17 139/101 95 [facility] Medical Decision Making Medical Screen Exam Complete: Yes Emergency Medical Condition: Yes Medical Record Reviewed: Yes Differential Diagnosis Recurrent DVT with history of DVT, TIA versus CVA, acute on chronic pain, bronchitis Narrative Course 56-year-old female here with multiple medical complaints. Patient says that she has the feeling of blood clots in her lower extremities. She says she's had this in the past was taken off anticoagulants and told to come to the emergency department if her symptoms return. She is also complaining of right arm pain as well as left arm numbness that has been present for the past several days. She tells me that she's had a history of stroke in the past. She also has been coughing recently. Patient seen and examined. She has multiple medical complaints and is telling me that she thinks she may have blood clots again. She also admits to some weakness on her left side of her body that is new. I recommend a medical bed for further workup and treatment. That medical provider will determine her disposition. Condition: Stable Candice Irizarry Nov 10, 2016 17:37
[2016-11-10] MEDS ORDERED: SODIUM CHLORIDE 0.9% FLUSH 10 ML FLUSH IVF PRN (18:15)
--- NOTE | 2016-11-10 18:15 | PD ---
HPI Chief Complaint: Pain: Acute or Chronic Time Seen by Provider: 18:05 Travel History International Travel<30 days: No Contact w/Intl Traveler<30days: No Traveled to known affect area: No History of Present Illness HPI 56-year-old female with history of bipolar disorder, hypertension, DVT, CVA in 2013, COPD, osteoarthritis, here for evaluation of possible DVT, right-sided neck and shoulder pain, left arm numbness. Symptoms have been going on for last 2-3 days. She is complaining of pain in her bilateral calves. She denies chest pain or dyspnea. No abdominal pain. The patient feels somewhat nauseous , however has not vomited. She is no longer on any anticoagulants. No motor deficits. Patient reports feeling intermittent paresthesias from her left forearm to her hand. PFSH Past Medical History Hx Anticoagulant Therapy: Yes Anemia: Yes Arthritis: Yes Autoimmune Disease: No Blood Disorders: No Bipolar Disorder: Yes Anxiety: Yes Depression: Yes Heart Rhythm Problems: No Cancer: No Cardiovascular Problems: Yes (HIGH BP) High Cholesterol: No Chemotherapy: No Chest Pain: No Congestive Heart Failure: No COPD: Yes Cerebrovascular Accident: Yes Diabetes: Yes Patient Takes Glucophage: Yes Diminished Hearing: No Deep Vein Thrombosis: Yes Endocrine: No Gastrointestinal Disorders: No Genitourinary: No Headaches: Yes Hepatitis: Yes Hypertension: Yes Immune Disorder: No Implanted Vascular Access Dvce: No Musculoskeletal: Yes (RT KNEE CONTUSION AND LEFT THUMB FX 06/06/06) Neurologic: Yes Psychiatric: No Reproductive: No Respiratory: Yes (copd) Immunizations Current: Yes Myocardial Infarction: No Tetanus Vaccination: < 5 Years Influenza Vaccination: Yes ?: Not Menopausal: Yes : 3 Para: 3 Tubal Ligation: Yes Past Surgical History Abdominal Surgery: No Arteriovenous Shunt: No Cardiac Surgery: No Ear Surgery: No Endocrine Surgery: No Eye Surgery: No Genitourinary Surgery: No Gynecologic Surgery: Yes (TUBAL LIGATION) Hysterectomy: No Insulin Pump: No Joint Replacement: No Neurologic Surgery: No Oral Surgery: No Pacemaker: No Thoracic Surgery: No Tonsillectomy: Yes Valve Replacement: Yes Other Surgery: Yes Social History Alcohol Use: No Tobacco Use: No Substance Use: No Allergies-Medications (Allergen,Severity, Reaction): Coded Allergies: Darvocet-N 100 (Verified Allergy, Severe, NAUSEA, 11/10/16) Toradol (Verified Allergy, Intermediate, rash, 4/6/17) Flexeril (Verified Allergy, Unknown, 11/10/16) Robaxin (Verified Adverse Reaction, Severe, DIARRHEA, 11/10/16) *MDRO Multi-Drug Resistant Organism (Verified Adverse Reaction, Unknown, ) 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 Norvasc (Amlodipine Besylate) 10 Mg Tab 10 Mg PO DAILY Glucophage (Metformin HCl) 850 Mg Tab 850 Mg PO DAILY With a meal Hydrochlorothiazide 12.5 Mg Cap 12.5 Mg PO DAILY Reported Alprazolam 2 Mg Tab 2 Mg PO HS Review of Systems Except as stated in HPI: all other systems reviewed are Neg Physical Exam Narrative GENERAL: Well-developed, overweight, comfortable, no acute distress. SKIN: Focused skin assessment warm/dry. No rashes. HEAD: Atraumatic. Normocephalic. EYES: Pupils equal and round. No scleral icterus. No injection or drainage. ENT: No nasal bleeding or discharge. Mucous membranes pink and moist. Poor dentition with several missing teeth. NECK: Trachea midline. No JVD. No midline cervical spine step-off or tenderness. There is moderate right-sided neck tenderness without mass. CARDIOVASCULAR: Regular rate and rhythm. Distal pulses brisk and equal bilaterally. RESPIRATORY: No accessory muscle use. Clear to auscultation. Breath sounds equal bilaterally. GASTROINTESTINAL: Abdomen soft, non-tender, nondistended. MUSCULOSKELETAL: No obvious deformities. No clubbing. No cyanosis. No edema. Bilateral calves with moderate tenderness. NEUROLOGICAL: Awake and alert. No obvious cranial nerve deficits. Motor grossly within normal limits. Normal speech. No focal deficits. Normal muscle strength in all 4 extremities. PSYCHIATRIC: Appropriate mood and affect; insight and judgment normal. Data Data Last Documented VS Vital Signs Date Time Temp Pulse Resp B/P Pulse Ox O2 Delivery O2 Flow Rate FiO2 11/10/16 16:24 98.0 84 17 139/101 95 Orders Electrocardiogram (11/10/16 18:08) Ckmb (Isoenzyme) Profile (11/10/16 18:08) Complete Blood Count With Diff (11/10/16 18:08) Comprehensive Metabolic Panel (11/10/16 18:08) Prothrombin Time / Inr (Pt) (11/10/16 18:08) Act Partial Throm Time (Ptt) (11/10/16 18:08) Troponin I (11/10/16 18:08) Chest, Single Ap (11/10/16 18:08) Ecg Monitoring (11/10/16 18:08) Iv Access Insert/Monitor (11/10/16 18:08) Oximetry (11/10/16 18:08) Sodium Chloride 0.9% Flush (Ns Flush) (11/10/16 18:15) Us Leg Venous Doppler Bilat (11/10/16 ) Ct Brain W/O Iv Contrast(Rout) (11/10/16 ) Ct Cerv Spine W/O Contrast (11/10/16 ) CKMB (11/10/16 18:20) CKMB% (11/10/16 18:20) Dexamethasone Inj (Decadron Inj) (11/10/16 20:30) Labs Laboratory Tests Test 11/10/16 18:20 White Blood Count 7.1 TH/MM3 Red Blood Count 4.94 MIL/MM3 Hemoglobin 13.7 GM/DL Hematocrit 43.1 % Mean Corpuscular Volume 87.3 FL Mean Corpuscular Hemoglobin 27.8 PG Mean Corpuscular Hemoglobin 31.9 % Concent Red Cell Distribution Width 13.5 % Platelet Count 254 TH/MM3 Mean Platelet Volume 8.6 FL Neutrophils (%) (Auto) 53.5 % Lymphocytes (%) (Auto) 35.3 % Monocytes (%) (Auto) 7.1 % Eosinophils (%) (Auto) 3.2 % Basophils (%) (Auto) 0.9 % Neutrophils # (Auto) 3.8 TH/MM3 Lymphocytes # (Auto) 2.5 TH/MM3 Monocytes # (Auto) 0.5 TH/MM3 Eosinophils # (Auto) 0.2 TH/MM3 Basophils # (Auto) 0.1 TH/MM3 CBC Comment DIFF FINAL Differential Comment Prothrombin Time 10.6 SEC Prothromb Time International 1.0 RATIO Ratio Activated Partial 28.4 SEC Thromboplast Time Sodium Level 136 MEQ/L Potassium Level 4.6 MEQ/L Chloride Level 100 MEQ/L Carbon Dioxide Level 30.1 MEQ/L Anion Gap 6 MEQ/L Blood Urea Nitrogen 10 MG/DL Creatinine 0.77 MG/DL Estimat Glomerular Filtration 93 ML/MIN Rate Random Glucose 87 MG/DL Calcium Level 9.1 MG/DL Total Bilirubin 0.3 MG/DL Aspartate Amino Transf 35 U/L (AST/SGOT) Alanine Aminotransferase 30 U/L (ALT/SGPT) Alkaline Phosphatase 85 U/L Total Creatine Kinase 175 U/L Creatine Kinase MB 0.9 NG/ML Troponin I LESS THAN 0.02 NG/ML Total Protein 8.3 GM/DL Albumin 3.7 GM/DL [facility] Medical Decision Making Medical Screen Exam Complete: Yes Emergency Medical Condition: Yes Differential Diagnosis DVT, radiculopathy, metabolic abnormality, cervical spine abnormality, intracranial abnormality Narrative Course Initial vital signs show heart rate 84, blood pressure 139/101, pulse ox 95% on room air, oral temp of 98F. CBC is unremarkable. CMP is unremarkable. Cardiac enzymes are negative. CT head: Unremarkable study. CT cervical spine: CONCLUSION: Slight neural foramina compromise bilateral C5-6 and right C6-7 and effacement of the anterior CSF space C5-6. CT cervical spine finding discussed with on-call neurosurgeon Dr. Biggs. He recommends conservative management with NSAIDs. Chest x-ray: No acute cardio pulmonary disease. Bilateral lower extremity duplex: Negative for DVT. Bilateral Loving cysts. Patient was made aware of all findings. She is resting comfortably. She has been ambulating in the emergency department without difficulty and without assistance. She is stable for discharge home with outpatient follow-up with her primary care physician this week. She will be discharged home with a Medrol Dosepak. She requested another dose of pain medication prior to being discharged. She was informed on when to return to the emergency department. She verbalizes understanding and agreement with plan. Diagnosis Primary Impression: Cervical radiculopathy due to degenerative joint disease of spine Additional Impression: Bakers cyst Qualified Code: M71.20 - Bakers cyst, unspecified laterality Referrals: Primary Care Physician 3 days Additional Instructions: Follow-up with your primary care physician this week. Return to the emergency department for worsening symptoms or any other concerns. Scripts Tramadol 50 Mg Tab50 Mg PO Q6H PRN (PAIN) #10 TAB Ref 0 Prov:Matt Deutsch MD 11/10/16 Methylprednisolone Dosepak (Medrol Dosepak)4 Mg Dspk4 Mg PO DIRECTED #1 DSPK Ref 0 Per Pharmacist direction Prov:Matt Deutsch MD 11/10/16 Disposition: 01 DISCHARGE HOME Condition: Stable Matt Deutsch MD Nov 10, 2016 18:15
[2016-11-10 18:55] LABS: APTT (PATIENT) 28.4 SEC (24.3-30.1); PROTHROMBIN TIME - PATIENT 10.6 SEC (9.8-11.6)
[2016-11-10 18:56] LABS: AUTOMATED NEUTROPHIL # 3.8 TH/MM3 (1.8-7.7); BASOPHIL # 0.1 TH/MM3 (0-0.2); BASOPHIL % 0.9 % (0.0-2.0); EOSINOPHIL # 0.2 TH/MM3 (0-0.4); EOSINOPHIL % 3.2 % (0.0-4.0); HEMATOCRIT 43.1 % (35.0-46.0); HEMO FLAGS DIFF FINAL; LYMPH % 35.3 % (9.0-44.0); LYMPHOCYTE # 2.5 TH/MM3 (1.0-4.8); MEAN CELL VOLUME 87.3 FL (80.0-100.0); MEAN CORPUSCULAR HEMOGLOBIN 27.8 PG (27.0-34.0); MEAN CORPUSCULAR HGB CONC 31.9 % (32.0-36.0); MONO % 7.1 % (0.0-8.0); NEUT % 53.5 % (16.0-70.0); PLATELET COUNT 254 TH/MM3 (150-450); RED BLOOD COUNT 4.94 MIL/MM3 (4.00-5.30); RED CELL DISTRIBUTION WIDTH 13.5 % (11.6-17.2); WHITE BLOOD COUNT 7.1 TH/MM3 (4.0-11.0)
--- NOTE | 2016-11-10 19:13 | RADRPT ---
EXAM DATE/TIME: 11/10/2016 18:42 [facility] COMPARISON: CT BRAIN W/O CONTRAST, September 15, 2015, 6:07. INDICATIONS : Neck pain that radiates down shoulders. RADIATION DOSE: 40.30 CTDIvol (mGy) MEDICAL HISTORY : Cerebrovascular disease. SURGICAL HISTORY : None. ENCOUNTER: Initial ACUITY: 2 days PAIN SCALE: 5/10 LOCATION: cranial TECHNIQUE: Multiple contiguous axial images were obtained of the head. Using automated exposure control and adj ustment of the mA and/or kV according to patient size, radiation dose was kept as low as reasonably a chievable to obtain optimal diagnostic quality images. FINDINGS: There is no evidence for intracranial hemorrhage, mass effect, mass lesions, edema, or extra-axial fl uid collections. The visualized bony structures appear intact. The ventricles are normal size for t he patient's age. There are no signs of acute infarction for technique. CONCLUSION: Unremarkable study. Ninfa Ellis MD on November 10, 2016 at 19:10 Board Certified Radiologist. This report was verified electronically.
--- NOTE | 2016-11-10 19:17 | RADRPT ---
EXAM DATE/TIME: 11/10/2016 18:42 [facility] COMPARISON: No previous studies available for comparison. INDICATIONS : Trauma, fall. RADIATION DOSE: 27.42 CTDIvol (mGy) MEDICAL HISTORY : None SURGICAL HISTORY : None. ENCOUNTER: Initial ACUITY: 1 day PAIN SCALE: 6/10 LOCATION: neck TECHNIQUE: Volumetric scanning of the cervical spine was performed. Multiplanar reconstructions in the sagittal, coronal and oblique axial planes were performed. Using automated exposure control and adjustment o f the mA and/or kV according to patient size, radiation dose was kept as low as reasonably achievable to obtain optimal diagnostic quality images. FINDINGS: No evidence of subluxation. No definite fracture is seen for technique. C2-C3: There is asymmetrical bulging disc towards the right with extension into the right neural foramen imp inging the exiting nerve root to a slight degree. Slight bulging disc and hypertrophic changes are se en with indentation on the thecal sac and no significant compromise to the thecal sac. C3-C4: Moderate degenerative changes are seen within the disc space and facets. Slight bulging disc and hype rtrophic changes are seen with indentation on the thecal sac and no significant compromise to the the ophelia sac or the exiting nerve roots. C4-C5: Moderate degenerative changes are seen within the disc space and facets. Slight bulging disc and hype rtrophic changes are seen with indentation on the thecal sac and no significant compromise to the the ophelia sac or the exiting nerve roots. C5-C6: Significant degenerative changes are seen within the disc space and facets. There is effacement of th e anterior CSF space due to chronic hypertrophic changes, some degree of bulging disc with compromise to the anterior CSF space, however overall no significant thecal sac stenosis is seen. There is slig ht neural foramina compromise bilaterally due to bulging disc and hypertrophic changes. C6-C7: Significant degenerative changes are seen within the disc space and facets. There is slight neural fo ramina compromise on the right due to asymmetrical bulging disc and hypertrophic changes. Slight bulg ing disc and hypertrophic changes are seen with indentation on the thecal sac and no significant comp romise to the thecal sac. C7-T1: There is no evidence for any significant compromise to the thecal sac, or the exiting nerve roots. N o appreciable thecal sac stenosis is seen. The neural foramina and lateral recess appear patent bila terally. CONCLUSION: Slight neural foramina compromise bilateral C5-6 and right C6-7 and effacement of the anterior CSF sp bre C5-6. Ninfa Ellis MD on November 10, 2016 at 19:11 Board Certified Radiologist. This report was verified electronically.
[2016-11-10 19:21] LABS: ALKALINE PHOSPHATASE 85 U/L (45-117); ALT (GPT) 30 U/L (10-53); ANION GAP 6 MEQ/L (5-15); AST (GOT) 35 U/L (15-37); BICARBONATE 30.1 MEQ/L (21.0-32.0); BLOOD UREA NITROGEN 10 MG/DL (7-18); CHLORIDE 100 MEQ/L (98-107); CREATINE KINASE 175 U/L (26-192); GLOMERULAR FILTRATION RATE 93 ML/MIN (>89); POTASSIUM 4.6 MEQ/L (3.5-5.1); SODIUM (NA) 136 MEQ/L (136-145); TOTAL BILIRUBIN ADULT 0.3 MG/DL (0.2-1.0)
--- NOTE | 2016-11-10 19:29 | RADRPT ---
EXAM DATE/TIME: 11/10/2016 18:23 [facility] COMPARISON: CHEST SINGLE AP, October 02, 2013, 4:51. CHEST SINGLE AP, September 14, 2016, 18:31. INDICATIONS : Left sided chest pressure, productive cough with wheezing. Pt denies pain at this time. MEDICAL HISTORY : Stroke. Deep venous thrombosis. SURGICAL HISTORY : None. ENCOUNTER: Initial ACUITY: 1 day PAIN SCORE: 0/10 LOCATION: Bilateral chest FINDINGS: Left apical scar has not changed. Focal consolidation is not seen. Heart and mediastinum are unremark able for technique. CONCLUSION: No acute cardiopulmonary disease. Ninfa Ellis MD on November 10, 2016 at 19:27 Board Certified Radiologist. This report was verified electronically.
[2016-11-10 19:33] LABS: CKMB 0.9 NG/ML (0.5-3.6)
--- NOTE | 2016-11-10 20:20 | RADRPT ---
EXAM DATE/TIME: 11/10/2016 18:58 [facility] COMPARISON: No previous studies available for comparison. INDICATIONS : Bilateral leg pain. MEDICAL HISTORY : Chronic obstructive pulmonary disease. Deep venous thrombosis. Hypertension. Cerebrovascular accident . Syncope. Anticoagulant therapy. Tuberculosis. . Arthritis. Osteoporosis. Left thumb fractu re. Diabetes. Anemia. Measles. Hepatitis. MRSA. SURGICAL HISTORY : Tonsillectomy.Tubal ligation. Valve replacement. Right knee surgery. ENCOUNTER: Subsequent ACUITY: 1 day PAIN SCORE: 7/10 LOCATION: Bilateral legs TECHNIQUE: Venous ultrasound of the left and right leg was performed from the inguinal ligament to the proximal calf. Real-time, color Doppler and spectral tracing, compression and augmentation techniques were us ed. FINDINGS: RIGHT LEG: There is normal compressibility of the deep venous system from the inguinal region to the proximal ca lf. No echogenic clot is seen in the lumen of the common femoral, femoral, popliteal, and posterior tibial veins. There is a normal response of the venous system to proximal and distal augmentation an d respiration. Approximate 8.5 cm Loving's cyst is present. LEFT LEG: There is normal compressibility of the deep venous system from the inguinal region to the proximal ca lf. No echogenic clot is seen in the lumen of the common femoral, femoral, popliteal, and posterior tibial veins. There is a normal response of the venous system to proximal and distal augmentation an d respiration. Approximate 7.0 cm Loving's cyst is present. CONCLUSION: Bilateral Loving's cysts and no DVT. Ninfa Ellis MD on November 10, 2016 at 20:18 Board Certified Radiologist. This report was verified electronically.
[2016-11-10] MEDS ORDERED: DEXAMETHASONE SOD PHOS 20 MG/5 ML VIAL IV PUSH ONE (20:30)
[2016-11-10] MEDS ORDERED: MORPHINE SULFATE 4 MG/ML INJ IV PUSH ONE (20:30)
[2016-11-10] MEDS ORDERED: TRAM50TA PO (20:34)
[2016-11-10] MEDS ORDERED: MEDR4PAK PO (20:34)
--- NOTE | 2016-11-11 13:48 | EKG ---
Date Performed: 11/10/2016 Time Performed: 18:21:04 PTAGE: 56 years EKG: Sinus rhythm NONSPECIFIC T-WAVE ABNORMALITY BORDERLINE ECG Compared to prior tracing no significant change PREVIOUS TRACING : 09/14/2016 20.23 DOCTOR: Gonzalo Tate Interpretating Date/Time 11/11/2016 13:42:04
[2016-12-07] MEDS ORDERED: DICL1GEL7 TOPICAL (09:39)
[2016-12-07] MEDS ORDERED: ATOR40TA16 PO (09:39)
[2016-12-07] MEDS ORDERED: METF850 PO (09:39)
[2016-12-07] MEDS ORDERED: HYDR12.57 PO (09:39)
[2016-12-07] MEDS ORDERED: AMLO10 PO (09:39)
[2016-12-20] MEDS ORDERED: ATOR40TA16 PO (09:32)
[2016-12-20] MEDS ORDERED: HYDR12.57 PO (09:33)
[2016-12-20] MEDS ORDERED: SPIRCAP INH (09:34)
== END 2016-11-10 21:05 | disposition home or self-care (01) ==
LOC: NEPD 16:22
DX: M54.12 Radiculopathy, cervical region (principal); I10 Essential (primary) hypertension; F31.9 Bipolar disorder, unspecified; F41.8 Other specified anxiety disorders; M19.90 Unspecified osteoarthritis, unspecified site; J44.9 Chronic obstructive pulmonary disease, unspecified; Z86.73 Personal history of transient ischemic attack (TIA), and cerebral infarction without residual deficits; Z86.718 Personal history of other venous thrombosis and embolism; Z79.01 Long term (current) use of anticoagulants
CPT/HCPCS: 70450; 71010; 72125; 80053; 82550; 82552; 84484; 85025; 85610; 85730; 93005; 93970; 96374; 96375; 99284; J1100; J2270

== ENCOUNTER 2017-05-12 13:54 | Emergency (ER) | payer OTHER ==
[~2017-05-12] VITALS: Ht 172.7 cm; Wt 140.0 kg
[~2017-05-12 13:54] MED LIST changes: -ALBU0.08 NEB; +ALPR2TAB3 PO; -AZIT250T3 PO; +BLOOD GLUCOSE M1 KIT; +BLOOD GLUCOSE T1 TES; -CALTTAB PO; -DICL1GEL TOPICAL; +DICL1GEL7 TOPICAL; -DICL1KIT TOPICAL; -IPRASOL INH; -PRED20 PO; +TRAM50TA PO; +VITA1000 PO; +diabetic shoes
[2017-05-12 13:55] VITALS: BP 147/90; PULSE 79; RESP 18; TEMP 97.8; O2SAT 97
--- NOTE | 2017-05-12 14:41 | PD ---
HPI Chief Complaint: Injury Time Seen by Provider: 14:15 Travel History International Travel<30 days: No Contact w/Intl Traveler<30days: No Traveled to known affect area: No History of Present Illness HPI 56-year-old obese female presents the emergency department status post slip and fall local grocery store yesterday due to the wet floor from the rain. Patient states she slipped doing a "splits" and landing on her knee and stomach. She also is complaining of left anterior shoulder pain. The patient now has pain in both knees, lower back, and left anterior shoulder. Patient is noticed to be walking with a cane, but able to ambulate with mild difficulty. She denies hitting her head, loss of consciousness, headache, or neck pain. Pain is constant in worsened by movement. Pain is rated as an 8/10 She has history of MRSA, and allergies to acetaminophen, cyclobenzaprine, ketorolac, methocarbamol, and propoxyphene. She states she is able to take ibuprofen and Naprosyn. PFSH Past Medical History Hx Anticoagulant Therapy: Yes Anemia: Yes Arthritis: Yes Autoimmune Disease: No Blood Disorders: No Bipolar Disorder: Yes Anxiety: Yes Depression: Yes Heart Rhythm Problems: No Cancer: No Cardiovascular Problems: Yes (HIGH BP) High Cholesterol: No Chemotherapy: No Chest Pain: No Congestive Heart Failure: No COPD: Yes Cerebrovascular Accident: Yes Diabetes: Yes Diminished Hearing: No Deep Vein Thrombosis: Yes Endocrine: No Gastrointestinal Disorders: No Genitourinary: No Headaches: Yes Hepatitis: Yes Hypertension: Yes Immune Disorder: No Implanted Vascular Access Dvce: No Musculoskeletal: Yes (RT KNEE CONTUSION AND LEFT THUMB FX 06/06/06) Neurologic: Yes Psychiatric: No Reproductive: No Respiratory: Yes (copd) Immunizations Current: Yes Myocardial Infarction: No Menopausal: Yes : 3 Para: 3 Tubal Ligation: Yes Past Surgical History Abdominal Surgery: No Arteriovenous Shunt: No Cardiac Surgery: No Ear Surgery: No Endocrine Surgery: No Eye Surgery: No Genitourinary Surgery: No Gynecologic Surgery: Yes (TUBAL LIGATION) Hysterectomy: No Insulin Pump: No Joint Replacement: No Neurologic Surgery: No Oral Surgery: No Pacemaker: No Thoracic Surgery: No Tonsillectomy: Yes Valve Replacement: Yes Other Surgery: Yes Social History Alcohol Use: No Tobacco Use: No Substance Use: No Allergies-Medications (Allergen,Severity, Reaction): Coded Allergies: acetaminophen (Verified Allergy, Severe, NAUSEA, 05/12/17) propoxyphene (Verified Allergy, Severe, NAUSEA, 05/12/17) ketorolac (Verified Allergy, Intermediate, rash, 05/12/17) cyclobenzaprine (Verified Allergy, Unknown, 05/12/17) methocarbamol (Verified Adverse Reaction, Severe, DIARRHEA, 05/12/17) *MDRO Multi-Drug Resistant Organism (Verified Adverse Reaction, Unknown, 05/12/17) 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 Reported Meds & Prescriptions Reported Meds & Active Scripts Active Proair Hfa 8.5 GM Inh (Albuterol Sulfate) 90 Mcg/Act Aer 2 Puff INH Q6H PRN 108 mcg/actuation [diabetic shoes] Unit .XX DIRECTED Vitamin D-1000 (Cholecalciferol) 1,000 Unit Tab 1,000 Units PO DAILY Hydrochlorothiazide 12.5 Mg Cap 12.5 Mg PO DAILY Diclofenac Topical 1% Gel 1 Applic TOPICAL QID Spiriva Handihaler (Tiotropium Inh) 18 Mcg Cap 18 Mcg INH DAILY 1 capsule = 18 mcg Atorvastatin (Atorvastatin Calcium) 40 Mg Tab 40 Mg PO HS Please make f/u appt, need labs. Norvasc (Amlodipine Besylate) 10 Mg Tab 10 Mg PO DAILY Glucophage (Metformin HCl) 850 Mg Tab 850 Mg PO DAILY With a meal Blood Glucose Test Strips Strips Strip 1 Box .ROUTE 3 X A WEEK Blood Glucose Monitoring W/Device (Device) 1 Kit Kit 1 Kit .ROUTE 3X A WEEK Tramadol (Tramadol HCl) 50 Mg Tab 50 Mg PO Q6H PRN Reported Alprazolam 2 Mg Tab 2 Mg PO HS Review of Systems Except as stated in HPI: all other systems reviewed are Neg General / Constitutional: No: Fever, Chills Eyes: No: Visual changes HENT: No: Headaches Cardiovascular: No: Chest Pain or Discomfort Respiratory: No: Shortness of Breath Gastrointestinal: No: Abdominal Pain Genitourinary: No: Dysuria Musculoskeletal: Positive: Myalgias, Arthralgias, Limited ROM, Pain Skin: No Rash Neurologic: No: Weakness Psychiatric: No: Depression Endocrine: No: Polydipsia Hematologic/Lymphatic: No: Easy Bruising Physical Exam Narrative GENERAL: Patient is obese but in no obvious distress talking on phone upon me entering the room. SKIN: Warm and dry. Normal color. Normal turgor. HEAD: Atraumatic. Normocephalic. EYES: Pupils equal and round. No scleral icterus. No injection or drainage. ENT: No nasal bleeding or discharge. Mucous membranes pink and moist. Pharynx is clear. Airway is patent. NECK: Trachea midline. No bony tenderness or step-off. Supple without tenderness. CARDIOVASCULAR: Regular rate and rhythm. RESPIRATORY: No accessory muscle use. Clear to auscultation. Breath sounds equal bilaterally. GASTROINTESTINAL: Abdomen soft, non-tender, nondistended. Hepatic and splenic margins not palpable. MUSCULOSKELETAL: Extremities without clubbing, cyanosis, or edema. No obvious deformities. Patient complains of tenderness along the anterior shoulder with palpation without obvious deformity or signs of trauma. Range of motion is intact but somewhat limited secondary to discomfort. Both knees appear normal without significant effusion noted. No obvious laxity is appreciated. Patient complains of discomfort with palpation of the lumbar spine more on the right than the left. Negative straight leg raise pain bilaterally. No weakness is noted in the lower extremities or upper extremities. NEUROLOGICAL: Awake and alert. No obvious cranial nerve deficits. Motor grossly within normal limits. Five out of 5 muscle strength in the arms and legs. Normal speech. PSYCHIATRIC: Appropriate mood and affect; insight and judgment normal. Data Data Last Documented VS Vital Signs Date Time Temp Pulse Resp B/P (MAP) Pulse Ox O2 Delivery O2 Flow Rate FiO2 05/12/17 13:55 97.8 79 18 147/90 (109) 97 Orders Orders Ibuprofen (Motrin) (05/12/17 14:45) Knee, Complete (4vws) (05/12/17 14:41) Shoulder, Complete (>2vws) (05/12/17 14:41) Spine, Lumbar - Ltd (Ap & Lat) (05/12/17 14:41) Knee, Complete (4vws) (05/12/17 14:41) [facility] Medical Decision Making Medical Screen Exam Complete: Yes Emergency Medical Condition: Yes Differential Diagnosis Slip and fall. Multiple contusions. Shoulder strain. Lumbar strain. Knee sprain. Possible fracture. Narrative Course Patient is medically stable at time of exam. Patient is given ibuprofen 800 mg by mouth. X-rays of the left shoulder, lumbar spine, and both knees are ordered. X-ray shows arthritis and some effusion but otherwise no acute fracture dislocation. Patient will be treated with ibuprofen 800 mg 3 times daily with food. Patient should use heat followed by ice to the affected areas for the next several days. Recommend patient follow up with primary care physician as needed. Diagnosis Primary Impression: Fall from slipping on slippery surface Qualified Codes: W01.0XXA - Fall on same level from slipping, tripping and stumbling without subsequent striking against object, initial encounter Additional Impressions: Knee contusion Qualified Codes: S80.00XA - Contusion of unspecified knee, initial encounter Strain of left shoulder Qualified Codes: S46.912A - Strain of unspecified muscle, fascia and tendon at shoulder and upper arm level, left arm, initial encounter Lumbar strain Qualified Codes: S39.012A - Strain of muscle, fascia and tendon of lower back , initial encounter Referrals: Primary Care Physician Patient Instructions: Contusion in Adults (ED), General Instructions, Knee Pain (ED), Low Back Strain (ED), Rotator Cuff Injury (ED) Additional Instructions: X-ray shows arthritis and some effusion but otherwise no acute fracture dislocation. Patient will be treated with ibuprofen 800 mg 3 times daily with food. Patient should use heat followed by ice to the affected areas for the next several days. Recommend patient follow up with primary care physician as needed. Med/Other Pt SpecificInfo: Prescription(s) given Disposition: 01 DISCHARGE HOME Condition: Stable Alirio Kenyon May 12, 2017 14:41
[2017-05-12] MEDS ORDERED: IBUPROFEN 800 MG TAB PO ONE (14:45)
--- NOTE | 2017-05-12 15:34 | RADRPT ---
EXAM DATE/TIME: 05/12/2017 15:03 [facility] COMPARISON: No previous studies available for comparison. INDICATIONS : Right knee pain after fall. MEDICAL HISTORY : Chronic obstructive pulmonary disease. Deep venous thrombosis. Hypertension . Cerebrovascular acciden t. Syncope. Anticoagulant therapy. Tuberculosis. . Arthritis.Osteoporosis. Left thumb fractu re. Diabetes. Anemia. Measles. Hepatitis. MRSA. SURGICAL HISTORY : Tonsillectomy.Tubal ligation. Valve replacement. Right knee surgery ENCOUNTER: Initial ACUITY: 2 days PAIN SCORE: 10/10 LOCATION: Right knee FINDINGS: Four view examination of the right knee demonstrates no evidence of fracture or dislocation. Bony mi neralization is normal. Moderate/severe degenerative changes. Soft tissue swelling without fracture or effusion. CONCLUSION: 1. Moderate/severe osteoarthritis. 2. Soft tissue swelling without fracture. Liban Arriaga MD on May 12, 2017 at 15:32 Board Certified Radiologist. This report was verified electronically.
--- NOTE | 2017-05-12 15:34 | RADRPT ---
EXAM DATE/TIME: 05/12/2017 15:05 [facility] COMPARISON: No previous studies available for comparison. INDICATIONS : Left knee pain after fall. MEDICAL HISTORY : Chronic obstructive pulmonary disease. Deep venous thrombosis. Hypertension.Cerebrovascular accident. Syncope. Anticoagulant therapy. Tuberculosis. . Arthritis. Osteoporosis. Left thumb fractu re. Diabetes. Anemia. Measles. Hepatitis. MRSA. SURGICAL HISTORY : Tonsillectomy.Tubal ligation. Valve replacement. Right knee surgery. ENCOUNTER: Initial ACUITY: 2 days PAIN SCORE: 10/10 LOCATION: Left knee FINDINGS: Four view examination of the left knee demonstrates no evidence of fracture or dislocation. Moderate to severe osteoarthritis. No fracture. Small joint effusion. CONCLUSION: 1. Moderate to severe osteoarthritis. 2. Small effusion without fracture. Liban Arriaga MD on May 12, 2017 at 15:32 Board Certified Radiologist. This report was verified electronically.
--- NOTE | 2017-05-12 16:07 | RADRPT ---
EXAM DATE/TIME: 05/12/2017 15:14 [facility] COMPARISON: CHEST SINGLE AP, September 14, 2016, 18:31. CHEST SINGLE AP, November 10, 2016, 18:23. INDICATIONS : Left shoulder pain, fell MEDICAL HISTORY : None. SURGICAL HISTORY : None. ENCOUNTER: Initial ACUITY: 1 day PAIN SCORE: 10/10 LOCATION: Left shoulder FINDINGS: There are some arthritic changes with osteophytes at the glenohumeral joint and the acromioclavicular joint. There is no evidence of fracture or dislocation. The adjacent clavicle and ribs appear intact . There some scarring in the ipsilateral lung apex. CONCLUSION: No acute bony injury Teo Watkins MD on May 12, 2017 at 16:03 Board Certified Radiologist. This report was verified electronically.
--- NOTE | 2017-05-12 16:09 | RADRPT ---
EXAM DATE/TIME: 05/12/2017 15:20 [facility] COMPARISON: No previous studies available for comparison. INDICATIONS : Back pain, fell MEDICAL HISTORY : None. SURGICAL HISTORY : None. ENCOUNTER: Initial ACUITY: 1 day PAIN SCORE: 10/10 LOCATION: Left lumbar spine FINDINGS: Lumbar spine alignment is satisfactory. There is no evidence of fracture. There are mild degenerative changes with disc space narrowing present at multiple levels and small predominantly ventral endplat e osteophytes noted. CONCLUSION: Degenerative changes. No acute bony findings Teo Watkins MD on May 12, 2017 at 16:05 Board Certified Radiologist. This report was verified electronically.
[2017-05-12] MEDS ORDERED: IBUP800T23 PO (16:14)
== END 2017-05-12 16:24 | disposition home or self-care (01) ==
LOC: NEPK 13:54
DX: S46.912A Strain of unspecified muscle, fascia and tendon at shoulder and upper arm level, left arm, initial encounter (principal); S39.012A Strain of muscle, fascia and tendon of lower back, initial encounter; S80.00XA Contusion of unspecified knee, initial encounter; E66.9 Obesity, unspecified; D64.9 Anemia, unspecified; E11.9 Type 2 diabetes mellitus without complications; I10 Essential (primary) hypertension; Y92.512 Supermarket, store or market as the place of occurrence of the external cause; W01.0XXA Fall on same level from slipping, tripping and stumbling without subsequent striking against object, initial encounter
CPT/HCPCS: 72100; 73030; 73564; 99284

== ENCOUNTER 2017-08-13 11:50 | Emergency (ER) | payer OTHER ==
[~2017-08-13] VITALS: Ht 172.7 cm; Wt 131.5 kg
[~2017-08-13 11:50] MED LIST changes: +DIPH25TA2 PO; +IBUP1TAB7 PO
[2017-08-13 11:52] VITALS: BP 140/74; PULSE 102; RESP 18; TEMP 97.4; O2SAT 98
[2017-08-13] MEDS ORDERED: ASPIRIN 81 MG CHEW TAB PO ONE (12:15)
[2017-08-13] MEDS ORDERED: SODIUM CHLORIDE 0.9% FLUSH 10 ML FLUSH IVF PRN (12:15)
--- NOTE | 2017-08-13 12:20 | PD ---
HPI Chief Complaint: Chest Pain Time Seen by Provider: 11:59 Travel History International Travel<30 days: No Contact w/Intl Traveler<30days: No Traveled to known affect area: No History of Present Illness HPI 57-year-old female presents for evaluation of bilateral lower leg pain, chest pain. She reports over the past week she has been having pain in her calves which she describes as an aching sensation that is worse when walking. She reports that she has had a DVT in the right leg in the past and this feels somewhat similar. Previously she was on Coumadin therapy. However this was discontinued 1-2 years ago. In addition to the leg pain she has been experiencing substernal chest pain intermittently for the past few days. She describes it as a substernal chest pressure which comes and goes with no obvious aggravating or relieving factors. Symptoms were worse this morning when she woke up which prompted evaluation. She reports that she took 2 baby aspirin this morning. Currently chest pain-free. She reports slight cough. Denies shortness of breath, abdominal pain, nausea or vomiting, diaphoresis, fevers or chills. She appears to have a history of prediabetes, hyperlipidemia , hypertension, COPD. She was admitted one year ago into the chest pain center and had a low risk myocardial perfusion scan at that time. No other complaints. PFSH Past Medical History Hx Anticoagulant Therapy: Yes Anemia: Yes Arthritis: Yes Autoimmune Disease: No Blood Disorders: No Bipolar Disorder: Yes Anxiety: Yes Depression: Yes Heart Rhythm Problems: No Cancer: No Cardiovascular Problems: Yes (HIGH BP) High Cholesterol: No Chemotherapy: No Chest Pain: No Congestive Heart Failure: No COPD: Yes Cerebrovascular Accident: Yes (CVA) Diabetes: Yes Patient Takes Glucophage: Yes (08/13/17) Diminished Hearing: No Deep Vein Thrombosis: Yes Endocrine: No Gastrointestinal Disorders: No Genitourinary: No Headaches: Yes Hepatitis: Yes (PT DENIES) Hypertension: Yes Immune Disorder: No Implanted Vascular Access Dvce: No Musculoskeletal: Yes (RT KNEE CONTUSION AND LEFT THUMB FX 06/06/06) Neurologic: Yes Psychiatric: No Reproductive: No Respiratory: Yes (copd) Immunizations Current: Yes Myocardial Infarction: No Influenza Vaccination: Yes Menopausal: Yes : 3 Para: 3 Tubal Ligation: Yes Past Surgical History Abdominal Surgery: No Arteriovenous Shunt: No Cardiac Surgery: No Ear Surgery: No Endocrine Surgery: No Eye Surgery: No Genitourinary Surgery: No Gynecologic Surgery: Yes (TUBAL LIGATION) Hysterectomy: No Insulin Pump: No Joint Replacement: No Neurologic Surgery: No Oral Surgery: No Pacemaker: No Thoracic Surgery: No Tonsillectomy: Yes (PT DENIES) Valve Replacement: Yes (PT DENIES) Other Surgery: Yes Social History Alcohol Use: No Tobacco Use: No Substance Use: No Allergies-Medications (Allergen,Severity, Reaction): Coded Allergies: acetaminophen (Verified Allergy, Severe, NAUSEA, 06/15/17) propoxyphene (Verified Allergy, Severe, NAUSEA, 06/15/17) ketorolac (Verified Allergy, Intermediate, rash, 06/15/17) cyclobenzaprine (Verified Allergy, Unknown, 06/15/17) methocarbamol (Verified Adverse Reaction, Severe, DIARRHEA, 06/15/17) *MDRO Multi-Drug Resistant Organism (Verified Adverse Reaction, Unknown, 06/15/17) 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 Reported Meds & Prescriptions Reported Meds & Active Scripts Active Hydrochlorothiazide 12.5 Mg Cap 12.5 Mg PO DAILY Diclofenac Topical 1% Gel 1 Applic TOPICAL QID Diphenhydramine (Diphenhydramine HCl) 25 Mg Tab 25 Mg PO Q6H PRN Ibuprofen 800 Mg Tab 800 Mg PO Q8H PRN Proair Hfa 8.5 GM Inh (Albuterol Sulfate) 90 Mcg/Act Aer 2 Puff INH Q6H PRN 108 mcg/actuation [diabetic shoes] Unit .XX DIRECTED Vitamin D-1000 (Cholecalciferol) 1,000 Unit Tab 1,000 Units PO DAILY Spiriva Handihaler (Tiotropium Inh) 18 Mcg Cap 18 Mcg INH DAILY 1 capsule = 18 mcg Atorvastatin (Atorvastatin Calcium) 40 Mg Tab 40 Mg PO HS Please make f/u appt, need labs. Norvasc (Amlodipine Besylate) 10 Mg Tab 10 Mg PO DAILY Glucophage (Metformin HCl) 850 Mg Tab 850 Mg PO DAILY With a meal Blood Glucose Test Strips Strips Strip 1 Box .ROUTE 3 X A WEEK Blood Glucose Monitoring W/Device (Device) 1 Kit Kit 1 Kit .ROUTE 3X A WEEK Tramadol (Tramadol HCl) 50 Mg Tab 50 Mg PO Q6H PRN Reported Alprazolam 2 Mg Tab 2 Mg PO HS Review of Systems Except as stated in HPI: all other systems reviewed are Neg Physical Exam Narrative GENERAL: Well-developed well-nourished female in no acute distress SKIN: Warm and dry. HEAD: Atraumatic. Normocephalic. EYES: Pupils equal and round. No scleral icterus. No injection or drainage. ENT: No nasal bleeding or discharge. Mucous membranes pink and moist. NECK: Trachea midline. No JVD. CARDIOVASCULAR: Regular rate and rhythm. No murmur appreciated. RESPIRATORY: No accessory muscle use. Clear to auscultation. Breath sounds equal bilaterally. GASTROINTESTINAL: Abdomen soft, non-tender, nondistended. Hepatic and splenic margins not palpable. MUSCULOSKELETAL: No obvious deformities. Some tenderness to palpation of bilateral calf regions with no obvious deformity. There is no edema. Dorsalis pedis pulses are strong bilaterally. NEUROLOGICAL: Awake and alert. No obvious cranial nerve deficits. Motor grossly within normal limits. Normal speech. PSYCHIATRIC: Appropriate mood and affect; insight and judgment normal. Data Data Last Documented VS Vital Signs Date Time Temp Pulse Resp B/P (MAP) Pulse Ox O2 Delivery O2 Flow Rate FiO2 08/13/17 15:19 18 08/13/17 15:09 78 118/71 (87) 96 Room Air 08/13/17 11:52 97.4 Orders Orders Electrocardiogram (08/13/17 12:08) Basic Metabolic Panel (Bmp) (08/13/17 12:08) Ckmb (Isoenzyme) Profile (08/13/17 12:08) Complete Blood Count With Diff (08/13/17 12:08) Magnesium (Mg) (08/13/17 12:08) Prothrombin Time / Inr (Pt) (08/13/17 12:08) Act Partial Throm Time (Ptt) (08/13/17 12:08) Troponin I (08/13/17 12:08) Ecg Monitoring (08/13/17 12:08) Bilateral Bp Monitoring (08/13/17 12:08) Iv Access Insert/Monitor (08/13/17 12:08) Oximetry (08/13/17 12:08) Oxygen Administration (08/13/17 12:08) Aspirin Chew (Aspirin Chew) (08/13/17 12:15) Sodium Chloride 0.9% Flush (Ns Flush) (08/13/17 12:15) Ct Pulmonary Angiogram (08/13/17 12:08) Us Leg Venous Doppler Bilat (08/13/17 12:08) CKMB (08/13/17 12:18) CKMB% (08/13/17 12:18) Potassium Chloride (Kcl) (08/13/17 13:00) Tramadol (Ultram) (08/13/17 13:15) Iohexol 350 Inj (Omnipaque 350 Inj) (08/13/17 13:41) Troponin I (08/13/17 14:16) Orphenadrine Inj (Norflex Inj) (08/13/17 15:15) Ed Discharge Order (08/13/17 15:41) Labs Laboratory Tests Test 08/13/17 12:18 08/13/17 14:54 White Blood Count 7.3 TH/MM3 Red Blood Count 4.86 MIL/MM3 Hemoglobin 13.6 GM/DL Hematocrit 42.2 % Mean Corpuscular Volume 86.8 FL Mean Corpuscular Hemoglobin 28.0 PG Mean Corpuscular Hemoglobin Concent 32.3 % Red Cell Distribution Width 13.2 % Platelet Count 297 TH/MM3 Mean Platelet Volume 8.0 FL Neutrophils (%) (Auto) 63.5 % Lymphocytes (%) (Auto) 26.4 % Monocytes (%) (Auto) 6.9 % Eosinophils (%) (Auto) 2.6 % Basophils (%) (Auto) 0.6 % Neutrophils # (Auto) 4.6 TH/MM3 Lymphocytes # (Auto) 1.9 TH/MM3 Monocytes # (Auto) 0.5 TH/MM3 Eosinophils # (Auto) 0.2 TH/MM3 Basophils # (Auto) 0.0 TH/MM3 CBC Comment DIFF FINAL Differential Comment Prothrombin Time 10.6 SEC Prothromb Time International Ratio 1.0 RATIO Activated Partial Thromboplast Time 28.7 SEC Blood Urea Nitrogen 9 MG/DL Creatinine 0.72 MG/DL Random Glucose 110 MG/DL Calcium Level 9.2 MG/DL Magnesium Level 1.9 MG/DL Sodium Level 139 MEQ/L Potassium Level 3.3 MEQ/L Chloride Level 103 MEQ/L Carbon Dioxide Level 28.0 MEQ/L Anion Gap 8 MEQ/L Estimat Glomerular Filtration Rate 100 ML/MIN Total Creatine Kinase 153 U/L Creatine Kinase MB 1.6 NG/ML Troponin I LESS THAN 0.02 NG/ML LESS THAN 0.02 NG/ML MDM Medical Decision Making Medical Screen Exam Complete: Yes Emergency Medical Condition: Yes Medical Record Reviewed: Yes Differential Diagnosis Acute coronary syndrome, costochondritis, pulmonary embolism, DVT, popliteal cyst, radiculopathy, intermittent claudication Narrative Course The patient was placed on ECG monitor and pulse oximetry. A 12-lead EKG was obtained. Plan is for basic lab work, CT pulmonary angiogram, bilateral leg ultrasound. The patient has taken 160 kg of aspirin today. Additional 162 mg aspirin has been ordered. The patient remained chest pain-free during her hospital stay. Discussed with my attending who agrees to plan of care. Ultrasound of the legs reveals: CONCLUSION: 1. No evidence of deep venous thrombosis within the large extremities. 2. Bilateral popliteal cysts measuring 6.2 x 1.4 x 4.0 cm on the right and 6.9 x 3.6 x 2.7 cm on the left. No evidence of DVT, bilateral popliteal cysts. CT pulmonary angiogram is normal. Potassium 3.3, oral potassium chloride administered. Initial set of cardiac enzymes were negative. Given the patient's reassuring workup, recent myocardial perfusion scan one year ago which was normal, a delta troponin was performed and this was also negative. The patient is stable for discharge. Diagnosis Primary Impression: Popliteal cyst Additional Impression: Chest pain Additional Instructions: Take Tylenol or Motrin for pain. Follow-up with primary care physician. Return for any emergent medical conditions. Med/Other Pt SpecificInfo: No Change to Meds Disposition: 01 DISCHARGE HOME Condition: Stable Jordin Coronado Aug 13, 2017 12:20
[2017-08-13 12:27] LABS: AUTOMATED NEUTROPHIL # 4.6 TH/MM3 (1.8-7.7); BASOPHIL % 0.6 % (0.0-2.0); EOSINOPHIL # 0.2 TH/MM3 (0-0.4); EOSINOPHIL % 2.6 % (0.0-4.0); HEMATOCRIT 42.2 % (35.0-46.0); HEMOGLOBIN 13.6 GM/DL (11.6-15.3); LYMPH % 26.4 % (9.0-44.0); LYMPHOCYTE # 1.9 TH/MM3 (1.0-4.8); MEAN CELL VOLUME 86.8 FL (80.0-100.0); MEAN CORPUSCULAR HGB CONC 32.3 % (32.0-36.0); MONO % 6.9 % (0.0-8.0); MONOCYTE # 0.5 TH/MM3 (0-0.9); NEUT % 63.5 % (16.0-70.0); PLATELET COUNT 297 TH/MM3 (150-450); RED BLOOD COUNT 4.86 MIL/MM3 (4.00-5.30); RED CELL DISTRIBUTION WIDTH 13.2 % (11.6-17.2); WHITE BLOOD COUNT 7.3 TH/MM3 (4.0-11.0)
[2017-08-13 12:37] LABS: PROTHROMBIN TIME - PATIENT 10.6 SEC (9.8-11.6)
--- NOTE | 2017-08-13 12:49 | RADRPT ---
EXAM DATE/TIME: 08/13/2017 12:13 [facility] COMPARISON: US LEG BILATERAL VENOUS DOPPLER, November 10, 2016, 18:58. INDICATIONS : Bilateral leg pain. MEDICAL HISTORY : Chronic obstructive pulmonary disease. Hypertension. Methicillin-resistant Staphylococcus aureus. CVA . DVT. Dyspnea. Osteoporosis. Arthritis. Hepatitis. Anemia. Loving cysts. SURGICAL HISTORY : Tonsillectomy.Tubal ligation. Right knee arthroscopy. ENCOUNTER: Initial ACUITY: 4 - 6 months PAIN SCORE: 5/10 LOCATION: Bilateral legs. TECHNIQUE: Venous ultrasound of the left and right leg was performed from the inguinal ligament to the proximal calf. Real-time, color Doppler and spectral tracing, compression and augmentation techniques were us ed. FINDINGS: RIGHT LEG: There is normal compressibility of the deep venous system from the inguinal region to the proximal ca lf. No echogenic clot is seen in the lumen of the common femoral, femoral, popliteal, and posterior tibial veins. There is a normal response of the venous system to proximal and distal augmentation an d respiration. There is a popliteal cyst measuring 6.2 x 1.4 x 4.0 cm. LEFT LEG: There is normal compressibility of the deep venous system from the inguinal region to the proximal ca lf. No echogenic clot is seen in the lumen of the common femoral, femoral, popliteal, and posterior tibial veins. There is a normal response of the venous system to proximal and distal augmentation an d respiration. There is a popliteal cyst measuring 6.9 x 3.6 x 2.7 cm. CONCLUSION: 1. No evidence of deep venous thrombosis within the large extremities. 2. Bilateral popliteal cysts measuring 6.2 x 1.4 x 4.0 cm on the right and 6.9 x 3.6 x 2.7 cm on the left. Jermain Simmons MD on August 13, 2017 at 12:45 Board Certified Radiologist. This report was verified electronically.
[2017-08-13 12:50] LABS: BLOOD UREA NITROGEN 9 MG/DL (7-18); CALCIUM 9.2 MG/DL (8.5-10.1); CHLORIDE 103 MEQ/L (98-107); CREATININE 0.72 MG/DL (0.50-1.00); GLOMERULAR FILTRATION RATE 100 ML/MIN (>89); GLUCOSE,RANDOM 110 MG/DL (74-106); MAGNESIUM 1.9 MG/DL (1.5-2.5); SODIUM (NA) 139 MEQ/L (136-145)
[2017-08-13 12:53] LABS: TROPONIN I LESS THAN 0.02 NG/ML (0.02-0.05)
[2017-08-13] MEDS ORDERED: POTASSIUM CHLORIDE 20 MEQ CONTROLLED RELEASE TAB PO ONE (13:00)
[2017-08-13] MEDS ORDERED: traMADol HCL 50 MG TAB PO ONE (13:15)
[2017-08-13] MEDS ORDERED: IOHEXOL 350 MG/ML 10 ML VIAL (for RAD DIAG) IVCONTRAST ONE (13:41)
--- NOTE | 2017-08-13 14:10 | RADRPT ---
EXAM DATE/TIME: 08/13/2017 13:37 [facility] COMPARISON: CT PULMONARY ANGIOGRAM, August 09, 2016, 14:46. INDICATIONS : Intermittent substernal chest pain. Shortness of Breath. IV CONTRAST: 80 cc Omnipaque 350 (iohexol) IV RADIATION DOSE: 27.02 CTDIvol (mGy) ; Patient body habitus MEDICAL HISTORY : Cerebrovascular disease. Hypertension. Chronic obstructive pulmonary disease.CVA,DVT SURGICAL HISTORY : Tubal ligation. ENCOUNTER: Initial ACUITY: 2 days PAIN SCALE: 7/10 LOCATION: chest substernal TECHNIQUE: Volumetric scanning of the chest was performed using a pulmonary embolism protocol MIP images were re constructed. Using automated exposure control and adjustment of the mA and/or kV according to patien t size, radiation dose was kept as low as reasonably achievable to obtain optimal diagnostic quality images. DICOM format image data is available electronically for review and comparison. Follow-up recommendations for detected pulmonary nodules are based at a minimum on nodule size and pa tient risk factors according to Fleischner Society Guidelines. FINDINGS: Examination of the pulmonary vasculature demonstrates good filling of the main, lobar and segmental b ranches. There are no filling defects to suggest pulmonary embolism. Multiplanar reconstructions are also unremarkable. There is stable portable scarring with calcification in the left upper lobe. Multiple calcified granu deanna are present in both lungs. No pleural effusions are identified. Examination of the mediastinum demonstrates no abnormally enlarged lymph nodes by CT criteria. No axillary or hilar abnormalities ar e identified. Coronary artery calcifications are present. The visualized upper abdomen demonstrates n o abnormality. CONCLUSION: 1. No evidence of pulmonary embolism. Christophe Lujan MD on August 13, 2017 at 14:03 Board Certified Radiologist. This report was verified electronically.
[2017-08-13 15:09] VITALS: BP 118/71; PULSE 78; RESP 18; O2SAT 96
[2017-08-13] MEDS ORDERED: ORPHENADRINE INJ 60 MG/2 ML AMP IM ONE (15:15)
[2017-08-13 15:19] VITALS: RESP 18
[2017-08-13 16:23] VITALS: BP 120/79
--- NOTE | 2017-08-14 18:41 | EKG ---
Date Performed: 08/13/2017 Time Performed: 12:04:42 PTAGE: 57 years EKG: Sinus rhythm POSSIBLE LEFT ATRIAL ENLARGEMENT NONSPECIFIC T-WAVE ABNORMALITY Compared to prior tracing no signifi cant change BORDERLINE ECG PREVIOUS TRACING : 11/10/2016 18.21 DOCTOR: Ame Balderrama Interpretating Date/Time 08/14/2017 18:39:52
[2017-08-17] MEDS ORDERED: HYDR12.57 PO (11:18)
== END 2017-08-13 16:55 | disposition home or self-care (01) ==
LOC: NEPE 11:50
DX: M71.22 Synovial cyst of popliteal space [Baker], left knee (principal); M71.21 Synovial cyst of popliteal space [Baker], right knee; R07.9 Chest pain, unspecified; R05 Cough; R94.31 Abnormal electrocardiogram [ECG] [EKG]; D64.9 Anemia, unspecified; F31.9 Bipolar disorder, unspecified; E11.9 Type 2 diabetes mellitus without complications; I10 Essential (primary) hypertension
CPT/HCPCS: 71275; 80048; 82550; 82552; 83735; 84484; 85025; 85610; 85730; 93005; 93970; 96372; 99285; J2360; Q9967

== ENCOUNTER 2017-08-24 23:40 | Emergency (ER) | payer OTHER ==
[~2017-08-24] VITALS: Ht 172.7 cm; Wt 133.0 kg
[2017-08-24 23:42] VITALS: BP 168/94; PULSE 104; RESP 20; TEMP 98.9; O2SAT 95
[2017-08-25] MEDS ORDERED: ACETAMINOPHEN/HYDROcodone 325 MG/5 MG TAB PO ONE (01:00)
--- NOTE | 2017-08-25 01:12 | PD ---
HPI Chief Complaint: Edema Time Seen by Provider: 00:00 Travel History International Travel<30 days: No Contact w/Intl Traveler<30days: No Traveled to known affect area: No History of Present Illness HPI Patient is a 57-year-old female obese diabetic hypertensive who is reporting that she is having lower back pain and bilateral lower calf area tib-fib area pain bilateral left greater swelling than the right. She did not take any medication for the pain that she has multiple allergies which are listed as including acetaminophen and Toradol she is in no obvious distress she has nontoxic-appearing she is awake alert. Her left calf is mildly swollen otherwise a normal exam PFSH Past Medical History Hx Anticoagulant Therapy: Yes Anemia: Yes Arthritis: Yes Autoimmune Disease: No Blood Disorders: No Bipolar Disorder: Yes Anxiety: Yes Depression: Yes Heart Rhythm Problems: No Cancer: No Cardiovascular Problems: Yes (HTN) High Cholesterol: No Chemotherapy: No Chest Pain: No Congestive Heart Failure: No COPD: Yes Cerebrovascular Accident: Yes Diabetes: Yes (PRE) Diminished Hearing: No Deep Vein Thrombosis: Yes Endocrine: No Gastrointestinal Disorders: No Genitourinary: No Headaches: Yes Hepatitis: Yes (PT DENIES) Hypertension: Yes Immune Disorder: No Implanted Vascular Access Dvce: No Musculoskeletal: Yes (RT KNEE CONTUSION AND LEFT THUMB FX 06/06/06) Neurologic: Yes Psychiatric: No Reproductive: No Respiratory: Yes (copd) Immunizations Current: Yes Myocardial Infarction: No Menopausal: Yes : 3 Para: 3 Tubal Ligation: Yes Past Surgical History Abdominal Surgery: No Arteriovenous Shunt: No Cardiac Surgery: No Ear Surgery: No Endocrine Surgery: No Eye Surgery: No Genitourinary Surgery: No Gynecologic Surgery: Yes (TUBAL LIGATION) Hysterectomy: No Insulin Pump: No Joint Replacement: No Neurologic Surgery: No Oral Surgery: No Pacemaker: No Thoracic Surgery: No Tonsillectomy: Yes (PT DENIES) Valve Replacement: Yes (PT DENIES) Other Surgery: Yes Social History Alcohol Use: No Tobacco Use: No Substance Use: No Allergies-Medications (Allergen,Severity, Reaction): Coded Allergies: acetaminophen (Verified Allergy, Severe, NAUSEA, 08/24/17) propoxyphene (Verified Allergy, Severe, NAUSEA, 08/24/17) ketorolac (Verified Allergy, Intermediate, rash, 08/24/17) cyclobenzaprine (Verified Allergy, Unknown, 08/24/17) methocarbamol (Verified Adverse Reaction, Severe, DIARRHEA, 08/24/17) *MDRO Multi-Drug Resistant Organism (Verified Adverse Reaction, Unknown, ) 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 Reported Meds & Prescriptions Reported Meds & Active Scripts Active Gabapentin 100 Mg Cap 100 Mg PO BID Hydrochlorothiazide 12.5 Mg Cap 12.5 Mg PO DAILY Diclofenac Topical 1% Gel 1 Applic TOPICAL QID Diphenhydramine (Diphenhydramine HCl) 25 Mg Tab 25 Mg PO Q6H PRN Ibuprofen 800 Mg Tab 800 Mg PO Q8H PRN Proair Hfa 8.5 GM Inh (Albuterol Sulfate) 90 Mcg/Act Aer 2 Puff INH Q6H PRN 108 mcg/actuation [diabetic shoes] Unit .XX DIRECTED Vitamin D-1000 (Cholecalciferol) 1,000 Unit Tab 1,000 Units PO DAILY Spiriva Handihaler (Tiotropium Inh) 18 Mcg Cap 18 Mcg INH DAILY 1 capsule = 18 mcg Atorvastatin (Atorvastatin Calcium) 40 Mg Tab 40 Mg PO HS Please make f/u appt, need labs. Norvasc (Amlodipine Besylate) 10 Mg Tab 10 Mg PO DAILY Glucophage (Metformin HCl) 850 Mg Tab 850 Mg PO DAILY With a meal Blood Glucose Test Strips Strips Strip 1 Box .ROUTE 3 X A WEEK Blood Glucose Monitoring W/Device (Device) 1 Kit Kit 1 Kit .ROUTE 3X A WEEK Tramadol (Tramadol HCl) 50 Mg Tab 50 Mg PO Q6H PRN Reported Alprazolam 2 Mg Tab 2 Mg PO HS Review of Systems Except as stated in HPI: all other systems reviewed are Neg Musculoskeletal: Positive: Myalgias (lower back pain right sided), Edema, Pain , Other (reports swelling in both anterior tib-fib and calf areas left greater than right extremely tender she says and warm reports a prior history of DVTs) Physical Exam Narrative GENERAL: Nontoxic-appearing awake alert SKIN: Warm and dry. HEAD: Atraumatic. Normocephalic. EYES: Pupils equal and round. No scleral icterus. No injection or drainage. ENT: No nasal bleeding or discharge. Mucous membranes pink and moist. NECK: Trachea midline. No JVD. CARDIOVASCULAR: Regular rate and rhythm. RESPIRATORY: No accessory muscle use. Clear to auscultation. Breath sounds equal bilaterally. GASTROINTESTINAL: Abdomen soft, non-tender, nondistended. Hepatic and splenic margins not palpable. Back. Patient has tenderness paraspinal lumbar spine right-sided MUSCULOSKELETAL: Extremities her left lower tib-fib Area mildly swollen compared to the right. No obvious deformities. NEUROLOGICAL: Awake and alert. No obvious cranial nerve deficits. Motor grossly within normal limits. Five out of 5 muscle strength in the arms and legs. Normal speech. PSYCHIATRIC: Appropriate mood and affect; insight and judgment normal. Data Data Last Documented VS Vital Signs Date Time Temp Pulse Resp B/P (MAP) Pulse Ox O2 Delivery O2 Flow Rate FiO2 08/25/17 02:20 08/24/17 23:42 98.9 104 20 95 Room Air Orders Orders Acetamin-Hydrocod 325-5 Mg ([place] 5-325 (08/25/17 01:00) Us Leg Venous Doppler (08/25/17 ) Us Leg Venous Doppler Bilat (08/25/17 ) Ed Discharge Order (08/25/17 02:13) [facility] Medical Decision Making Medical Screen Exam Complete: Yes Emergency Medical Condition: Yes Differential Diagnosis Peripheral edema versus PVD's his diabetic neuropathy versus radiculopathy of pinched nerves in the lumbar spine and bilateral versus DVTs bilateral Narrative Course Ultrasound rules out DVTs of given her 1 narcotic pill here in the ER and discharge her home with a few pills of gabapentin for the peripheral neuropathy Diagnosis Primary Impression: Peripheral neuropathy Qualified Codes: G62.9 - Polyneuropathy, unspecified Patient Instructions: General Instructions, Peripheral Neuropathy (ED) Scripts Gabapentin (Gabapentin) 100 Mg Cap 100 MG PO BID, #20 CAP 0 Refills Prov: Jeffry King MD 08/25/17 Disposition: 01 DISCHARGE HOME Condition: Good Jeffry King MD Aug 25, 2017 01:12
[2017-08-25] MEDS ORDERED: GABA100C4 PO (02:16)
--- NOTE | 2017-08-25 02:20 | RADRPT ---
EXAM DATE/TIME: 08/25/2017 01:34 [facility] COMPARISON: US LEG BILATERAL VENOUS DOPPLER, August 13, 2017, 12:13. INDICATIONS : Bilateral leg swelling. MEDICAL HISTORY : Chronic obstructive pulmonary disease. Hypertension. Methicillin-resistant Staphylococcus aureus. CVA . DVT. Dyspnea. Osteoporosis. Arthritis. Hepatitis. Anemia. Loving cysts. SURGICAL HISTORY : Tonsillectomy. Tubal ligation. Right knee arthroscopy. ENCOUNTER: Subsequent ACUITY: 1 week PAIN SCORE: 5/10 LOCATION: Bilateral legs. TECHNIQUE: Venous ultrasound of the left and right leg was performed from the inguinal ligament to the proximal calf. Real-time, color Doppler and spectral tracing, compression and augmentation techniques were us ed. FINDINGS: RIGHT LEG: There is normal compressibility of the deep venous system from the inguinal region to the proximal ca lf. No echogenic clot is seen in the lumen of the common femoral, femoral, popliteal, and posterior tibial veins. There is a normal response of the venous system to proximal and distal augmentation an d respiration. Avascular cyst in the right popliteal fossa measuring 4.9 x 2.4 x 1.7 cm. LEFT LEG: There is normal compressibility of the deep venous system from the inguinal region to the proximal ca lf. No echogenic clot is seen in the lumen of the common femoral, femoral, popliteal, and posterior tibial veins. There is a normal response of the venous system to proximal and distal augmentation an d respiration. Avascular cyst in the left popliteal fossa measuring 5.6 x 2.9 x 2.5 cm. Slightly pro minent left inguinal node measuring up to 2.2 x 1.7 x 0.9 cm. CONCLUSION: 1. No sonographic evidence for lower extremity DVT. 2. 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 3. Nonspecific slightly prominent left inguinal node measuring up to 2.2 cm. Chandler Jackson MD on August 25, 2017 at 2:16 Board Certified Radiologist. This report was verified electronically.
== END 2017-08-25 03:12 | disposition home or self-care (01) ==
LOC: NEPE 23:40
DX: G62.9 Polyneuropathy, unspecified (principal); M79.605 Pain in left leg; M79.604 Pain in right leg; E66.9 Obesity, unspecified; I10 Essential (primary) hypertension; F41.8 Other specified anxiety disorders; Z86.718 Personal history of other venous thrombosis and embolism
CPT/HCPCS: 93970; 99284

== ENCOUNTER → 2017-10-10 | Outpatient (CLI) | payer OTHER ==
[~2017-10-10] MED LIST changes: +GABA100C4 PO
--- NOTE | 2017-10-10 12:03 | RADRPT ---
EXAM DATE/TIME: 10/10/2017 11:41 [facility] COMPARISON: CHEST SINGLE AP, November 10, 2016, 18:23. CHEST PA & LAT, August 09, 2016, 13:36. INDICATIONS : Cough, chest heainess. MEDICAL HISTORY : Chronic obstructive pulmonary disease. Hypertension. Methicillin-resistant Staphylococcus aureus. CVA . DVT. Dyspnea. Osteoporosis. Arthritis. Hepatitis. Anemia. Loving cysts.ORIF mandible. SURGICAL HISTORY : Tonsillectomy. Tubal ligation. Right knee arthroscopy. ENCOUNTER: Initial ACUITY: 2 weeks PAIN SCORE: 0/10 LOCATION: chest FINDINGS: There is stable scarring in the left upper lung. There is stable granulomatous disease with granuloma s in the right upper lung. Otherwise, the lungs remain clear. No focal or acute infiltrates are seen. There are no pleural effusions or pulmonary edema. The heart size is stable. The bony structures are stable. No significant change compared to the prior study. CONCLUSION: No acute disease. No significant change has occurred. Calros Sanz MD on October 10, 2017 at 12:00 Board Certified Radiologist. This report was verified electronically.
--- NOTE | 2017-10-11 14:55 | EKG ---
Date Performed: 10/10/2017 Time Performed: 12:19:06 PTAGE: 57 years EKG: Sinus rhythm PREVIOUS TRACING : 08/13/2017 12.04 DOCTOR: James Leos Interpretating Date/Time 10/11/2017 14:54:54
== END ==
LOC: HRAD 11:26
PROVIDERS: ATTEND Family Medicine
DX: R05 Cough (principal); R07.89 Other chest pain
CPT/HCPCS: 71046; 93005

== ENCOUNTER 2017-10-23 11:17 | Emergency (ER) | payer OTHER ==
[2017-10-23 11:25] VITALS: BP 154/103; PULSE 91; RESP 28; TEMP 97.5; O2SAT 92
[2017-10-23 12:44] LABS: AUTOMATED NEUTROPHIL # 4.6 TH/MM3 (1.8-7.7); BASOPHIL # 0.1 TH/MM3 (0-0.2); BASOPHIL % 0.8 % (0.0-2.0); EOSINOPHIL # 0.2 TH/MM3 (0-0.4); EOSINOPHIL % 2.3 % (0.0-4.0); HEMATOCRIT 40.8 % (35.0-46.0); HEMOGLOBIN 13.2 GM/DL (11.6-15.3); LYMPH % 35.1 % (9.0-44.0); MEAN CELL VOLUME 86.4 FL (80.0-100.0); MEAN CORPUSCULAR HGB CONC 32.4 % (32.0-36.0); MEAN PLATELET VOLUME 8.1 FL (7.0-11.0); MONO % 8.2 % (0.0-8.0); MONOCYTE # 0.7 TH/MM3 (0-0.9); NEUT % 53.6 % (16.0-70.0); PLATELET COUNT 350 TH/MM3 (150-450); RED BLOOD COUNT 4.72 MIL/MM3 (4.00-5.30); RED CELL DISTRIBUTION WIDTH 13.5 % (11.6-17.2); WHITE BLOOD COUNT 8.6 TH/MM3 (4.0-11.0)
[2017-10-23 13:03] VITALS: BP 129/72; PULSE 93; RESP 16; O2SAT 96
[2017-10-23 13:05] LABS: BICARBONATE 26.7 MEQ/L (21.0-32.0); CALCIUM 9.2 MG/DL (8.5-10.1); CREATININE 0.66 MG/DL (0.50-1.00)
--- NOTE | 2017-10-23 13:24 | PD ---
HPI Chief Complaint: Lump, Cyst, Hernia Time Seen by Provider: 13:03 Travel History International Travel<30 days: No Contact w/Intl Traveler<30days: No Traveled to known affect area: No History of Present Illness HPI 57yo F with PMH of HTN, COPD, DM, sciatica, neuropathy presents to the ED with a painful lump under right breast for a few days. Pt also with right sided rib pain but denies any fall. Denies any fever, chest pain, sob, n/v, abdominal pain, focal weakness or numbness. Denies any nipple discharge, history of breast cancer. Pt said if she walks a long way, she does get sob but this is not new for her. PFSH Past Medical History Hx Anticoagulant Therapy: Yes Anemia: Yes Arthritis: Yes Autoimmune Disease: No Blood Disorders: No Bipolar Disorder: Yes Anxiety: Yes Depression: Yes Heart Rhythm Problems: No Cancer: No Cardiovascular Problems: Yes (HTN) High Cholesterol: No Chemotherapy: No Chest Pain: No Congestive Heart Failure: No COPD: Yes Cerebrovascular Accident: Yes Diabetes: Yes (PRE) Patient Takes Glucophage: Yes (METFORMIN ) Diminished Hearing: No Deep Vein Thrombosis: Yes Endocrine: No Gastrointestinal Disorders: No Genitourinary: No Headaches: Yes Hepatitis: Yes (PT DENIES) Hypertension: Yes Immune Disorder: No Implanted Vascular Access Dvce: No Musculoskeletal: Yes (RT KNEE CONTUSION AND LEFT THUMB FX 06/06/06) Neurologic: Yes Psychiatric: No Reproductive: No Respiratory: Yes (COPD) Immunizations Current: Yes Myocardial Infarction: No Menopausal: Yes : 3 Para: 3 Tubal Ligation: Yes Past Surgical History Abdominal Surgery: No Arteriovenous Shunt: No Cardiac Surgery: No Ear Surgery: No Endocrine Surgery: No Eye Surgery: No Genitourinary Surgery: No Gynecologic Surgery: Yes (TUBAL LIGATION) Hysterectomy: No Insulin Pump: No Joint Replacement: No Neurologic Surgery: No Oral Surgery: No Pacemaker: No Thoracic Surgery: No Tonsillectomy: Yes (PT DENIES) Valve Replacement: Yes (PT DENIES) Other Surgery: Yes Social History Alcohol Use: No Tobacco Use: No Substance Use: No Allergies-Medications (Allergen,Severity, Reaction): Coded Allergies: acetaminophen (Verified Allergy, Severe, NAUSEA, 08/24/17) propoxyphene (Verified Allergy, Severe, NAUSEA, 08/24/17) ketorolac (Verified Allergy, Intermediate, rash, 08/24/17) cyclobenzaprine (Verified Allergy, Unknown, 08/24/17) methocarbamol (Verified Adverse Reaction, Severe, DIARRHEA, 08/24/17) *MDRO Multi-Drug Resistant Organism (Verified Adverse Reaction, Unknown, ) 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 Reported Meds & Prescriptions Reported Meds & Active Scripts Active Clindamycin (Clindamycin HCl) 150 Mg Cap 300 Mg PO Q6H 7 Days Gabapentin 100 Mg Cap 100 Mg PO BID Hydrochlorothiazide 12.5 Mg Cap 12.5 Mg PO DAILY Diclofenac Topical 1% Gel 1 Applic TOPICAL QID Diphenhydramine (Diphenhydramine HCl) 25 Mg Tab 25 Mg PO Q6H PRN Ibuprofen 800 Mg Tab 800 Mg PO Q8H PRN Proair Hfa 8.5 GM Inh (Albuterol Sulfate) 90 Mcg/Act Aer 2 Puff INH Q6H PRN 108 mcg/actuation [diabetic shoes] Unit .XX DIRECTED Vitamin D-1000 (Cholecalciferol) 1,000 Unit Tab 1,000 Units PO DAILY Spiriva Handihaler (Tiotropium Inh) 18 Mcg Cap 18 Mcg INH DAILY 1 capsule = 18 mcg Atorvastatin (Atorvastatin Calcium) 40 Mg Tab 40 Mg PO HS Please make f/u appt, need labs. Norvasc (Amlodipine Besylate) 10 Mg Tab 10 Mg PO DAILY Glucophage (Metformin HCl) 850 Mg Tab 850 Mg PO DAILY With a meal Blood Glucose Test Strips Strips Strip 1 Box .ROUTE 3 X A WEEK Blood Glucose Monitoring W/Device (Device) 1 Kit Kit 1 Kit .ROUTE 3X A WEEK Tramadol (Tramadol HCl) 50 Mg Tab 50 Mg PO Q6H PRN Reported Alprazolam 2 Mg Tab 2 Mg PO HS Review of Systems Except as stated in HPI: all other systems reviewed are Neg Physical Exam Narrative GENERAL: 57yo F in mild distress. SKIN: 3cm by 1cm fluctuance in right breast at 7oclock with surrounding induration. HEAD: Atraumatic. Normocephalic. EYES: Pupils equal and round. No scleral icterus. No injection or drainage. ENT: No nasal bleeding or discharge. Mucous membranes pink and moist. NECK: Trachea midline. No JVD. CARDIOVASCULAR: Regular rate and rhythm. No murmur appreciated. BREAST: +Small abscess right breast. No nipple discharge. RESPIRATORY: No accessory muscle use. Clear to auscultation. Breath sounds equal bilaterally. GASTROINTESTINAL: Abdomen soft, non-tender, nondistended. MUSCULOSKELETAL: No obvious deformities. No clubbing. No cyanosis. No edema. NEUROLOGICAL: Awake and alert. No obvious cranial nerve deficits. Motor grossly within normal limits. Normal speech. PSYCHIATRIC: Appropriate mood and affect; insight and judgment normal. Data Data Last Documented VS Vital Signs Date Time Temp Pulse Resp B/P (MAP) Pulse Ox O2 Delivery O2 Flow Rate FiO2 10/23/17 13:03 93 16 129/72 (91) 96 Nasal Cannula 2.00 10/23/17 11:25 97.5 Orders Orders Complete Blood Count With Diff (10/23/17 11:28) Basic Metabolic Panel (Bmp) (10/23/17 11:28) Us Breast Unilateral (10/23/17 ) Ribs, Uni (W/Exp Cxr-Min 3vw) (10/23/17 ) Morphine Inj (Morphine Inj) (10/23/17 13:30) Lidocaine 1% Inj (Xylocaine 1% Inj) (10/23/17 13:30) Ed Discharge Order (10/23/17 16:17) Labs Laboratory Tests Test 10/23/17 12:15 White Blood Count 8.6 TH/MM3 Red Blood Count 4.72 MIL/MM3 Hemoglobin 13.2 GM/DL Hematocrit 40.8 % Mean Corpuscular Volume 86.4 FL Mean Corpuscular Hemoglobin 28.0 PG Mean Corpuscular Hemoglobin Concent 32.4 % Red Cell Distribution Width 13.5 % Platelet Count 350 TH/MM3 Mean Platelet Volume 8.1 FL Neutrophils (%) (Auto) 53.6 % Lymphocytes (%) (Auto) 35.1 % Monocytes (%) (Auto) 8.2 % Eosinophils (%) (Auto) 2.3 % Basophils (%) (Auto) 0.8 % Neutrophils # (Auto) 4.6 TH/MM3 Lymphocytes # (Auto) 3.0 TH/MM3 Monocytes # (Auto) 0.7 TH/MM3 Eosinophils # (Auto) 0.2 TH/MM3 Basophils # (Auto) 0.1 TH/MM3 CBC Comment DIFF FINAL Differential Comment Blood Urea Nitrogen 14 MG/DL Creatinine 0.66 MG/DL Random Glucose 113 MG/DL Calcium Level 9.2 MG/DL Sodium Level 139 MEQ/L Potassium Level 4.1 MEQ/L Chloride Level 103 MEQ/L Carbon Dioxide Level 26.7 MEQ/L Anion Gap 9 MEQ/L Estimat Glomerular Filtration Rate 111 ML/MIN [facility] Medical Decision Making Medical Screen Exam Complete: Yes Emergency Medical Condition: Yes Differential Diagnosis Right breast abscess vs. rib fracture vs. musculoskeletal pain Narrative Course 57yo F with pain in right breast abscess. Pt was seen by provider at triage and US of breast was ordered. US breast showed 2.5 x 1.9 x 0.6cm subcutaneous abscess in the 7 o'clock position. I&D performed and pt tolerated well. Xray of right ribs negative. Labs reviewed, no leukocytosis. H/H normal. BMP unremarkable. Pt instructed to return to the ED in 2 days for packing removal and wound check. Procedures Procedure Narrative INCISION AND DRAINAGE OF ABSCESS: The area was prepped and was sterilely draped. A subcutaneous wheal of 1 % Xylocaine with a total number 1 mL was used to anesthetize the area properly. A number 11 scalpel was used to make a 1 -cm incision across the area of the abscess. The abscess was drained, complex loculations were broken down. Half inch iodoform packing was placed in the wound. Sterile dressing applied. Patient advised to have packing removed in two days. Diagnosis Primary Impression: Abscess Patient Instructions: General Instructions Departure Forms: Tests/Procedures Additional Instructions: Please return in two days for packing removal and wound check. Return to the ED if symptoms worsen. Med/Other Pt SpecificInfo: Prescription(s) given Scripts Clindamycin (Clindamycin) 150 Mg Cap 300 MG PO Q6H for Infection for 7 Days, #56 CAP 0 Refills Prov: Caryn Feldman 10/23/17 Disposition: 01 DISCHARGE HOME Condition: Stable Caryn Feldman Oct 23, 2017 13:24
[2017-10-23] MEDS ORDERED: LIDOCAINE HCL 1% 20 ML VIAL INFIL ONE (13:30)
[2017-10-23] MEDS ORDERED: MORPHINE SULFATE 4 MG/ML INJ IM ONE (13:30)
--- NOTE | 2017-10-23 13:47 | RADRPT ---
EXAM DATE/TIME: 10/23/2017 12:55 [facility] COMPARISON: No previous studies available for comparison. INDICATIONS : Right breast abscess. MEDICAL HISTORY : Hypertension. Arthritis. Osteoporosis. CVA. Syncope. Headache. Numbness. DVT. COPD. Dyspnea. Diabetes . Anemia. Depression. Anxiety. MRSA. Anticoagulant therapy. SURGICAL HISTORY : Tonsillectomy. Tubal ligation. Arthroscopic on right knee. ENCOUNTER: Initial ACUITY: 4-6 days PAIN SCORE: 10/10 LOCATION: Right breast. FINDINGS: There is a heterogeneously hypoechoic subcutaneous collection in the right breast at 7: 00 position 10-12 cm from the nipple. This measures 2.5 x 1.9 x 0.6 cm. There is hyperemia in the morgan rounding tissues. CONCLUSION: 1. Findings consistent with 2.5 x 1.9 x 0.6 cm subcutaneous abscess in the 7: 2. 00 right breast approximately 10-12 cm from the nipple. Chandler Jackson MD on October 23, 2017 at 13:43 Board Certified Radiologist. This report was verified electronically.
--- NOTE | 2017-10-23 13:59 | RADRPT ---
EXAM DATE/TIME: 10/23/2017 13:36 [facility] COMPARISON: No previous studies available for comparison. INDICATIONS : Right sided rib pain. Pain near right breast. No prior trauma. MEDICAL HISTORY : Chronic obstructive pulmonary disease. Hypertension. Arthritis. Hepatitis. Anemia. Loving cysts. SURGICAL HISTORY : Tonsillectomy. Tubal ligation. ORIF mandible. mandible. ENCOUNTER: Initial ACUITY: 1 week PAIN SCORE: 5/10 LOCATION: Right flank. FINDINGS: Multiple views of the right ribs were performed. There is no evidence of displaced fracture. No stew tructive lesions or areas of periosteal thickening are seen. Expiratory view of the chest is negativ e for pneumothorax. The mediastinal structures are midline. CONCLUSION: Negative for displaced rib fracture. Rodrigo Glover MD FACR on October 23, 2017 at 13:56 Board Certified Radiologist. This report was verified electronically.
[2017-10-23] MEDS ORDERED: CLIN150C14 PO (16:17)
== END 2017-10-23 16:43 | disposition home or self-care (01) ==
LOC: NED 11:17 → NEPD 16:43
DX: N61.1 Abscess of the breast and nipple (principal); I10 Essential (primary) hypertension; J44.9 Chronic obstructive pulmonary disease, unspecified; G62.9 Polyneuropathy, unspecified; E11.9 Type 2 diabetes mellitus without complications; M19.90 Unspecified osteoarthritis, unspecified site; F31.9 Bipolar disorder, unspecified; F41.9 Anxiety disorder, unspecified; Z86.718 Personal history of other venous thrombosis and embolism
CPT/HCPCS: 19020; 71101; 76642; 80048; 85025; 96372; 99285; J2270

== ENCOUNTER 2017-10-26 12:37 | Emergency (ER) | payer OTHER ==
[~2017-10-26 12:37] MED LIST changes: +CLIN150C14 PO
[2017-10-26 12:49] VITALS: BP 149/86; PULSE 92; RESP 18; TEMP 97.3; O2SAT 99
--- NOTE | 2017-10-26 13:26 | PD ---
HPI Chief Complaint: Skin Problem Time Seen by Provider: 13:17 Travel History International Travel<30 days: No Contact w/Intl Traveler<30days: No Traveled to known affect area: No History of Present Illness HPI 57-year-old female presents to the ED for abscess recheck. She endorses complaints with antibiotics. She has not changed the dressing since the procedure was performed. She denies fever, chills, nausea, vomiting. She endorses pain in the area but states that is "constantly rubbing her right breast." PFSH Past Medical History Hx Anticoagulant Therapy: Yes Anemia: Yes Arthritis: Yes Autoimmune Disease: No Blood Disorders: No Bipolar Disorder: Yes Anxiety: Yes Depression: Yes Heart Rhythm Problems: No Cancer: No Cardiovascular Problems: Yes (HTN) High Cholesterol: No Chemotherapy: No Chest Pain: No Congestive Heart Failure: No COPD: Yes Cerebrovascular Accident: Yes Diabetes: Yes (PRE) Patient Takes Glucophage: No Diminished Hearing: No Deep Vein Thrombosis: Yes Endocrine: No Gastrointestinal Disorders: No Genitourinary: No Headaches: Yes Hepatitis: Yes (PT DENIES) Hypertension: Yes Immune Disorder: No Implanted Vascular Access Dvce: No Musculoskeletal: Yes (RT KNEE CONTUSION AND LEFT THUMB FX 06/06/06) Neurologic: Yes Psychiatric: No Reproductive: No Respiratory: Yes (COPD) Immunizations Current: Yes Myocardial Infarction: No ?: Not Menopausal: Yes : 3 Para: 3 Tubal Ligation: Yes Past Surgical History Abdominal Surgery: No Arteriovenous Shunt: No Cardiac Surgery: No Ear Surgery: No Endocrine Surgery: No Eye Surgery: No Genitourinary Surgery: No Gynecologic Surgery: Yes (TUBAL LIGATION) Hysterectomy: No Insulin Pump: No Joint Replacement: No Neurologic Surgery: No Oral Surgery: No Pacemaker: No Thoracic Surgery: No Tonsillectomy: Yes (PT DENIES) Valve Replacement: Yes (PT DENIES) Other Surgery: Yes Social History Alcohol Use: No Tobacco Use: No Substance Use: No Allergies-Medications (Allergen,Severity, Reaction): Coded Allergies: acetaminophen (Verified Allergy, Severe, NAUSEA, 10/26/17) propoxyphene (Verified Allergy, Severe, NAUSEA, 10/26/17) ketorolac (Verified Allergy, Intermediate, rash, 10/26/17) cyclobenzaprine (Verified Allergy, Unknown, 10/26/17) methocarbamol (Verified Adverse Reaction, Severe, DIARRHEA, 10/26/17) *MDRO Multi-Drug Resistant Organism (Verified Adverse Reaction, Unknown, ) 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 Reported Meds & Prescriptions Reported Meds & Active Scripts Active Clindamycin (Clindamycin HCl) 150 Mg Cap 300 Mg PO Q6H 7 Days Gabapentin 100 Mg Cap 100 Mg PO BID Hydrochlorothiazide 12.5 Mg Cap 12.5 Mg PO DAILY Diclofenac Topical 1% Gel 1 Applic TOPICAL QID Diphenhydramine (Diphenhydramine HCl) 25 Mg Tab 25 Mg PO Q6H PRN Ibuprofen 800 Mg Tab 800 Mg PO Q8H PRN Proair Hfa 8.5 GM Inh (Albuterol Sulfate) 90 Mcg/Act Aer 2 Puff INH Q6H PRN 108 mcg/actuation [diabetic shoes] Unit .XX DIRECTED Vitamin D-1000 (Cholecalciferol) 1,000 Unit Tab 1,000 Units PO DAILY Spiriva Handihaler (Tiotropium Inh) 18 Mcg Cap 18 Mcg INH DAILY 1 capsule = 18 mcg Atorvastatin (Atorvastatin Calcium) 40 Mg Tab 40 Mg PO HS Please make f/u appt, need labs. Norvasc (Amlodipine Besylate) 10 Mg Tab 10 Mg PO DAILY Glucophage (Metformin HCl) 850 Mg Tab 850 Mg PO DAILY With a meal Blood Glucose Test Strips Strips Strip 1 Box .ROUTE 3 X A WEEK Blood Glucose Monitoring W/Device (Device) 1 Kit Kit 1 Kit .ROUTE 3X A WEEK Tramadol (Tramadol HCl) 50 Mg Tab 50 Mg PO Q6H PRN Reported Alprazolam 2 Mg Tab 2 Mg PO HS Review of Systems Except as stated in HPI: all other systems reviewed are Neg Physical Exam Narrative GENERAL: Well-nourished, well-developed -Swiss female in no acute distress. SKIN: There is an indurated area in the right anterolateral chest wall which measures about 3 cm in diameter. In the center of this is a 1 cm incision. Small amount of purulent drainage. No packing is noted in the wound. SKIN: Focused skin assessment warm/dry. HEAD: Normocephalic. EYES: No scleral icterus. No injection or drainage. NECK: Supple, trachea midline. No JVD or lymphadenopathy. CARDIOVASCULAR: Regular rate and rhythm without murmurs, gallops, or rubs. RESPIRATORY: Breath sounds equal bilaterally. No accessory muscle use. GASTROINTESTINAL: Abdomen soft, non-tender, nondistended. MUSCULOSKELETAL: No cyanosis, or edema. BACK: Nontender without obvious deformity. No CVA tenderness. Data Data Last Documented VS Vital Signs Date Time Temp Pulse Resp B/P (MAP) Pulse Ox O2 Delivery O2 Flow Rate FiO2 10/26/17 12:49 97.3 92 18 149/86 (107) 99 Orders Orders Ibuprofen (Motrin) (10/26/17 13:30) [facility] Medical Decision Making Medical Screen Exam Complete: Yes Emergency Medical Condition: Yes Differential Diagnosis Abscess versus cellulitis versus wound recheck versus other Narrative Course 57-year-old female presents to the ED for abscess recheck. She endorses complaints with antibiotics. She has not changed the dressing since the procedure was performed. She denies fever, chills, nausea, vomiting. She endorses pain in the area but states that is "constantly rubbing her right breast." Vitals reviewed. On exam there is a 1 cm incision 3 cm area of induration under the right breast. Wound is clean and dry with pink granulating tissue. There is no packing noted in the wound. Clean, dry dressing was applied. Patient was administered 800 mg ibuprofen. She was provided detailed wound instructions. She is instructed to take all the antibiotics until they're gone, follow with the primary care provider, return for worsening symptoms. She is stable and discharged home. Diagnosis Primary Impression: Encounter for recheck of abscess following incision and drainage Referrals: Primary Care Physician Additional Instructions: Keep the wound clean, dry and covered. You may shower normally. Do not submerge the wound. Make sure that the wound is very dry before recovering with a Band-Aid. Intended taking antibiotics until they are all gone. Follow-up with her primary care provider. Return to the ED for any urgent or emergent medical condition. Disposition: DISCHARGE HOME Condition: Stable Ese Ruiz Oct 26, 2017 13:26
[2017-10-26] MEDS ORDERED: IBUPROFEN 800 MG TAB PO ONE (13:30)
== END 2017-10-26 13:57 | disposition home or self-care (01) ==
LOC: NEPK 12:37
DX: Z48.01 Encounter for change or removal of surgical wound dressing (principal)
CPT/HCPCS: 99281

== ENCOUNTER 2017-11-14 11:01 | Emergency (ER) | payer OTHER ==
[2017-11-14 11:24] VITALS: BP 159/79; PULSE 97; RESP 20; TEMP 98.1; O2SAT 98
[2017-11-14] MEDS ORDERED: ORPHENADRINE INJ 60 MG/2 ML AMP IM ONE (12:15)
--- NOTE | 2017-11-14 12:51 | PD ---
HPI Chief Complaint: Fall Time Seen by Provider: 11:55 Travel History International Travel<30 days: No Contact w/Intl Traveler<30days: No Traveled to known affect area: No History of Present Illness HPI 57-year-old female presents to the emergency department with complaint of left shoulder pain, left thumb pain, right knee pain, low back pain after slipping in water at the grocery store 2 days ago and falling. Denies hitting her head or loss of consciousness. Denies neck pain. Denies anticoagulant therapy. Denies paresthesias, loss of sensation to all extremities. Reports decreased range of motion of the left shoulder. Denies encopresis, incontinence, saddle anesthesias. Denies chest pain, shortness of breath, abdominal pain, vomiting, change in urine or stool. Is ambulatory. Has been taking ibuprofen for symptom management. Rates pain 10/10. Worse with movement. Better when lying down or sitting. Primary care provider is Dr. Santos. Allergies as listed on the chart. History of right leg DVT, hypertension, COPD, diabetes mellitus type 2. Is not on anticoagulants for history of DVT. Has no other medical complaints. No other modifying factors or associated signs and symptoms. PFSH Past Medical History Hx Anticoagulant Therapy: Yes Anemia: Yes Arthritis: Yes Autoimmune Disease: No Blood Disorders: No Bipolar Disorder: Yes Anxiety: Yes Depression: Yes Heart Rhythm Problems: No Cancer: No Cardiovascular Problems: Yes (HTN) High Cholesterol: No Chemotherapy: No Chest Pain: No Congestive Heart Failure: No COPD: Yes Cerebrovascular Accident: Yes Diabetes: Yes Patient Takes Glucophage: Yes Diminished Hearing: No Deep Vein Thrombosis: Yes Endocrine: No Gastrointestinal Disorders: No Genitourinary: No Headaches: Yes Hepatitis: Yes (PT DENIES) Hypertension: Yes Immune Disorder: No Implanted Vascular Access Dvce: No Musculoskeletal: Yes (RT KNEE CONTUSION AND LEFT THUMB FX 06/06/06) Neurologic: Yes Psychiatric: No Reproductive: No Respiratory: Yes (COPD) Immunizations Current: Yes Myocardial Infarction: No Tetanus Vaccination: < 5 Years ?: Not Menopausal: Yes : 3 Para: 3 Tubal Ligation: Yes Past Surgical History Abdominal Surgery: No Arteriovenous Shunt: No Cardiac Surgery: No Ear Surgery: No Endocrine Surgery: No Eye Surgery: No Genitourinary Surgery: No Gynecologic Surgery: Yes (TUBAL LIGATION) Hysterectomy: No Insulin Pump: No Joint Replacement: No Neurologic Surgery: No Oral Surgery: No Pacemaker: No Thoracic Surgery: No Tonsillectomy: Yes (PT DENIES) Valve Replacement: Yes (PT DENIES) Other Surgery: Yes Social History Alcohol Use: No Tobacco Use: No Substance Use: No Allergies-Medications (Allergen,Severity, Reaction): Coded Allergies: acetaminophen (Verified Allergy, Severe, NAUSEA, 11/14/17) propoxyphene (Verified Allergy, Severe, NAUSEA, 11/14/17) ketorolac (Verified Allergy, Intermediate, rash, 11/14/17) cyclobenzaprine (Verified Allergy, Unknown, 11/14/17) methocarbamol (Verified Adverse Reaction, Severe, DIARRHEA, 11/14/17) *MDRO Multi-Drug Resistant Organism (Verified Adverse Reaction, Unknown, ) 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 Norvasc (Amlodipine Besylate) 10 Mg Tab 10 Mg PO DAILY Glucophage (Metformin HCl) 850 Mg Tab 850 Mg PO DAILY With a meal Review of Systems Except as stated in HPI: all other systems reviewed are Neg Physical Exam Narrative GENERAL: Well-nourished, well-developed black female patient, in no acute distress; afebrile, nontoxic-appearing SKIN: Warm and dry. HEAD: Atraumatic. Normocephalic. EYES: Pupils equal and round. No scleral icterus. No injection or drainage. ENT: Mucosa pink and moist. Airway patent. NECK: Trachea midline. CARDIOVASCULAR: Regular rate. RESPIRATORY: No accessory muscle use. GASTROINTESTINAL: Morbidly obese. MUSCULOSKELETAL: Right knee without erythema, edema, ecchymosis; with tenderness of patient to the patellar aspect; no obvious deformity; joint stable with negative drawer test; with 90 of flexion. Left shoulder with tenderness on palpation; without erythema, edema, ecchymosis; with 90 abduction ; joint stable; shoulders equal; no obvious deformity. Tenderness on palpation to the left thenar eminence area; without erythema, edema, ecchymosis; no obvious deformity; with full range of motion and sensory intact. Bilateral lower extremities supple and non-tense with 2+ pedal pulses and sensory intact; with full range of motion and 5/5 strength. Active dorsiflexion and extension of bilateral feet. Ambulatory in room with normal gait. Sitting up in bed at 90. No obvious deformities. No clubbing. No cyanosis. No edema. BACK: No midline point tenderness on palpation of the lumbar spine. Tenderness on palpation of bilateral lumbar iliosacral area. No obvious deformities. NEUROLOGICAL: Awake and alert. Oriented 3. No obvious cranial nerve deficits. Motor grossly within normal limits. Normal speech. Moves all extremities. 5/5 strength to all extremities. Sensory intact. PSYCHIATRIC: Appropriate mood and affect; insight and judgment normal. Data Data Last Documented VS Vital Signs Date Time Temp Pulse Resp B/P (MAP) Pulse Ox O2 Delivery O2 Flow Rate FiO2 11/14/17 11:24 98.1 97 20 159/79 (105) 98 Orders Orders Hand, Complete (Pnm1bjt) (11/14/17 12:08) Knee, Complete (4vws) (11/14/17 12:08) Shoulder, Complete (>2vws) (11/14/17 12:08) Orphenadrine Inj (Norflex Inj) (11/14/17 12:15) Ed Discharge Order (11/14/17 13:45) MDM Medical Decision Making Medical Screen Exam Complete: Yes Emergency Medical Condition: Yes Medical Record Reviewed: Yes Differential Diagnosis Low back strain, knee sprain, patellar fracture, shoulder sprain, shoulder fracture, thumb fracture, hand sprain Narrative Course 57-year-old female with multiple complaints after slip and fall 2 days ago. Denies hitting her head or loss of consciousness. Denies neck pain. Right knee x-ray, left shoulder x-ray, left hand x-ray, Norflex ordered. 1343: X-ray findings concluded: Shoulder X-Ray 11/14/17 1208 Signed Impressions: Service Date/Time: Tuesday, November 14, 2017 12:50 - CONCLUSION: 1. Stable examination of the left shoulder without an acute finding identified. There is stable glenohumeral and acromioclavicular joint osteoarthritis. 2. Stable parenchymal changes at the left lung apex, likely representing scar. Teo Pisano MD Knee X-Ray 11/14/17 1208 Signed Impressions: Service Date/Time: Tuesday, November 14, 2017 12:56 - CONCLUSION: Stable examination of the right knee. No acute finding is identified. There is a stable moderate to severe tricompartmental osteoarthritis. Teo Pisano MD Hand X-Ray 11/14/17 1208 Signed Impressions: Service Date/Time: Tuesday, November 14, 2017 12:38 - CONCLUSION: 1. No acute left hand abnormality is identified. 2. Severe osteoarthritis at the first CMC joint. Teo Pisano MD Patient provided a copy of the x-ray reports. Instructed patient to follow-up with orthopedics as needed. Ibuprofen prescribed for home. Instructed patient to follow up with primary care provider. Patient verbalizes understanding and agreement with treatment plan. Patient is medically cleared and stable for discharge. Discussed reasons to return to the emergency department. Patient agrees with treatment plan. The patients vital signs are stable and the patient is stable for outpatient follow-up and treatment. Patient discharged home, stable and in no acute distress. Diagnosis Primary Impression: Fall Qualified Codes: W19.XXXA - Unspecified fall, initial encounter Additional Impressions: Right knee injury Qualified Codes: S89.91XA - Unspecified injury of right lower leg, initial encounter Injury of left shoulder Qualified Codes: S49.92XA - Unspecified injury of left shoulder and upper arm , initial encounter Injury of left hand Qualified Codes: S69.92XA - Unspecified injury of left wrist, hand and finger( s), initial encounter Low back strain Qualified Codes: S39.012A - Strain of muscle, fascia and tendon of lower back , initial encounter Referrals: [facility] Primary Care Physician Patient Instructions: Fall Prevention (ED), Finger Sprain (ED), General Instructions, Knee Sprain (ED), Shoulder Sprain (ED) Additional Instructions: Tylenol or ibuprofen as directed and as needed for pain Robaxin as prescribed and as needed for muscle spasms Heating pad and/or ice to affected area to reduce pain Avoid aggravating activities; increase activity as tolerated Follow-up with primary care provider Return to emergency department immediately with worsening of symptoms Med/Other Pt SpecificInfo: Prescription(s) given Scripts Ibuprofen (Ibuprofen) 800 Mg Tab 800 MG PO Q8H Y for PAIN SCALE 1 TO 10, #20 TAB 0 Refills Prov: Елена Odell 11/14/17 Disposition: 01 DISCHARGE HOME Condition: Stable Елена Odell Nov 14, 2017 12:51
--- NOTE | 2017-11-14 13:35 | RADRPT ---
EXAM DATE/TIME: 11/14/2017 12:38 [facility] COMPARISON: No previous studies available for comparison. INDICATIONS : Slip and fall. Left hand pain at base of thumb. MEDICAL HISTORY : Chronic obstructive pulmonary disease. Hypertension Arthritis. Hepatitis. Loving cysts. SURGICAL HISTORY : Tonsillectomy. Tubal ligation. Mandible fracture repair. ENCOUNTER: Initial ACUITY: 1 day PAIN SCORE: 4/10 LOCATION: Left hand, base of thumb FINDINGS: 4 views of the left hand demonstrate no acute fracture or dislocation. Mineralization is within chivo l limits. There are severe osteoarthritis changes at the first carpometacarpal joint with joint space narrowing, subchondral changes, and large osteophytes. There is slight subluxation as well. There is joint space narrowing with osteophytes at the third digit distal interphalangeal joint. Changes in t he proximal phalanx of the second digit suggest old healed fracture. No soft tissue abnormality or ra diopaque foreign body is seen. CONCLUSION: 1. No acute left hand abnormality is identified. 2. Severe osteoarthritis at the first CMC joint. Teo Pisano MD on November 14, 2017 at 13:30 Board Certified Radiologist. This report was verified electronically.
--- NOTE | 2017-11-14 13:38 | RADRPT ---
EXAM DATE/TIME: 11/14/2017 12:50 [facility] COMPARISON: CHEST SINGLE AP, September 08, 2015, 3:43. SHOULDER LEFT COMPLETE (>2VWS), May 12, 2017, 15:14. INDICATIONS : Slip and fall. Left proximal humerus pain. MEDICAL HISTORY : Chronic obstructive pulmonary disease. Hypertension Hepatitis. Anemia. Loving cysts. SURGICAL HISTORY : Tonsillectomy. Tubal ligation. Mandible fracture repair. ENCOUNTER: Initial ACUITY: 1 day PAIN SCORE: 6/10 LOCATION: Left proximal humerus FINDINGS: 4 views of the left shoulder demonstrate no fracture or dislocation. Mineralization is normal. Acromi oclavicular joint is intact with hypertrophic osteoarthritis. There are osteophytes at the glenohumer al joint. No soft tissue abnormality is visualized. There is stable linear opacity in the left upper lobe with likely associated calcification and there is also stable opacity at the left lung apex. CONCLUSION: 1. Stable examination of the left shoulder without an acute finding identified. There is stable gleno humeral and acromioclavicular joint osteoarthritis. 2. Stable parenchymal changes at the left lung apex, likely representing scar. Teo Pisano MD on November 14, 2017 at 13:33 Board Certified Radiologist. This report was verified electronically.
--- NOTE | 2017-11-14 13:39 | RADRPT ---
EXAM DATE/TIME: 11/14/2017 12:56 [facility] COMPARISON: KNEE RIGHT COMPLETE (4VWS), May 12, 2017, 15:03. INDICATIONS : Slip and fall. Right knee pain. MEDICAL HISTORY : Chronic obstructive pulmonary disease. Hypertension Arthritis. Hepatitis. Anemia. Loving cysts. SURGICAL HISTORY : Tonsillectomy. Tubal ligation. Mandible fracture repair. ENCOUNTER: Initial ACUITY: 1 day PAIN SCORE: 5/10 LOCATION: Right knee, entire FINDINGS: 4 views of the right knee demonstrate no fracture or dislocation. Mineralization is within normal wynne its. There are moderate sized tricompartmental osteophytes. Mild medial joint space narrowing is pres ent. No joint effusion is visualized. No soft tissue abnormality or radiopaque or body is identified. CONCLUSION: Stable examination of the right knee. No acute finding is identified. There is a stable moderate to s evere tricompartmental osteoarthritis. Teo Pisano MD on November 14, 2017 at 13:35 Board Certified Radiologist. This report was verified electronically.
[2017-11-14] MEDS ORDERED: IBUP1TAB7 PO (13:45)
== END 2017-11-14 16:17 | disposition home or self-care (01) ==
LOC: NEPK 11:01
DX: S89.91XA Unspecified injury of right lower leg, initial encounter (principal); S49.92XA Unspecified injury of left shoulder and upper arm, initial encounter; S69.92XA Unspecified injury of left wrist, hand and finger(s), initial encounter; S39.012A Strain of muscle, fascia and tendon of lower back, initial encounter; E66.01 Morbid (severe) obesity due to excess calories; I10 Essential (primary) hypertension; E11.9 Type 2 diabetes mellitus without complications; W01.0XXA Fall on same level from slipping, tripping and stumbling without subsequent striking against object, initial encounter; Y92.512 Supermarket, store or market as the place of occurrence of the external cause
CPT/HCPCS: 73030; 73130; 73564; 96372; 99284; J2360

== ENCOUNTER 2018-09-24 08:33 | Inpatient (IN) ==
[2018-09-24] MEDS ORDERED: Metoprolol Tartrate 25 MG Tablet PO SCH (09:00)
[2018-09-24] MEDS ORDERED: Sodium Chlor 0.9% Inj 500 ML IV.SIG SCH (09:00)
[2018-09-24] MEDS ORDERED: Chlorhexidine Gluconate 2% 1 Pack (2 Cloths) TOPICAL SCH (09:00)
[2018-09-24] MEDS ORDERED: Chlorhexidine 4% Topical 120 APPLIC/120 ML Bottle TOPICAL SCH (09:15)
[2018-09-24] MEDS ORDERED: ALPRAZolam 0.5 MG Tablet PO PRN (09:29)
[2018-09-24] MEDS ORDERED: Post-op Orders (for Pharmacy) OTHER STA (09:30)
[2018-09-24] MEDS ORDERED: Dexamethasone Inj 20 MG/5 ML Vial IV.PUSH ONE (09:30)
[2018-09-24] MEDS ORDERED: Dexamethasone PF Inj 10 MG/ML Vial IV.PUSH ONE (09:45)
[2018-09-24] MEDS ORDERED: Sugammadex Inj 200 MG/2 ML Vial IV.PUSH ONE (09:54)
[2018-09-24] MEDS ORDERED: Vancomycin Inj 1,000 MG in Sodium Chlor 0.9% Inj 250 ML IV.SIG SCH (10:00)
[2018-09-24] MEDS ORDERED: [UNRECOGNIZED DRUG - OTHER] P-ARTICULR SCH ×4 (10:00)
[2018-09-24] MEDS ORDERED: TRANEXAMIC ACID IV.SIG SCH (10:00)
[2018-09-24] MEDS ORDERED: SODIUM CHLOR 0.9% IV.SIG SCH (10:00)
[2018-09-24] MEDS ORDERED: SODIUM CHLOR 0.9% P-ARTICULR SCH ×4 (10:00)
[2018-09-24] MEDS ORDERED: Tranexamic Acid Inj 3,000 MG in Sodium Chlor 0.9% Inj 100 ML P-ARTICULR SCH (10:00)
[2018-09-24] MEDS ORDERED: ROPIVACAINE 0.5% P-ARTICULR SCH ×4 (10:00)
[2018-09-24] MEDS ORDERED: Ropivacaine 0.5% PF Inj 20 ML Vial ONE (10:24)
[2018-09-24] MEDS ORDERED: Neostigmine Inj 5 MG/5 ML Syringe IV.PUSH ONE (11:15)
[2018-09-24] MEDS ORDERED: Glycopyrrolate Inj 1 MG/5 ML Syringe IV.PUSH ONE (11:15)
[2018-09-24] MEDS ORDERED: Lidocaine PF 1% Inj 5 ML Syringe OTHER ONE (11:15)
[2018-09-24] MEDS: ceFAZolin 2 GM Premix Inj 2 GM/50 ML PIGGYBACK IV.SIG SCH ×2 (11:30→18:16)
[2018-09-24] MEDS ORDERED: ceFAZolin 2 GM Premix Inj 2 GM/50 ML PIGGYBACK IV.SIG SCH (12:00)
--- NOTE | 2018-09-24 13:15 | P.OP ---
Procedure: PREOPERATIVE DIAGNOSIS: Right knee osteoarthritis. POSTOPERATIVE DIAGNOSIS: Right knee osteoarthritis. PROCEDURE PERFORMED: Right total knee arthroplasty. SURGEON: Dr. Adam Razo M.D. SPORTS MANAGER: ROSA Wen. ANESTHESIA: General with adductor canal femoral nerve block ESTIMATED BLOOD LOSS: 300 mL. COMPLICATIONS: None. IMPLANTS USED: Giuliana size 6 posterior stabilized femur [] Giuliana size 5 tibia baseplate [] Giuliana size 9 mm polyethylene insert [] Giuliana size 35 patella [] Tourniquet time 1 minute at 300 mmHg Justification: The patient presents to the undersigned at [facility] with chief complaints of severe right knee pain. The pain is severe progressive and interferes with activities of daily living. The patient has failed greater than 3 months of nonoperative conservative treatment to include nonsteroidal anti-inflammatory medications, analgesic medications, physical therapy, cortisone injection, home exercise program, activity modification, ambulatory assistive aids, and weight loss. X-rays of the right knee reveal severe end-stage osteoarthritis with joint space narrowing, subchondral sclerosis, subchondral cysts, osteophyte formation, deformity with subluxation. The patient was counseled as to the risks, benefits, alternatives to a total knee arthroplasty. The risks were discussed which include but are not limited to, anesthesia, bleeding, infection, damage to nerves and blood vessels, continued pain, stiffness, failure of implants, blood clots, pulmonary embolism , and even . The patient's pain is severe and favors benefits over risk. The patient does wish to proceed with surgery as outlined above. Procedure in detail: Written consent has been obtained from the patient. The patient was identified and taken to the operating room. The patient was placed supine on the operating room table. General anesthesia was administered to the patient as well as an adductor canal femoral nerve block. The patient was administered preoperative IV antibiotic. A well-padded tourniquet was placed in the right thigh. The right lower extremity was prepped and draped using isopropyl alcohol , Hibiclens solution, and ChloraPrep solution. After a timeout was performed an Esmarch bandage was used to exsanguinate the right lower extremity. The tourniquet was inflated to 300 mmHg. A longitudinal incision was made over the anterior aspect of the right knee. The tourniquet was not providing adequate hemostasis so I deflated the tourniquet which made relatively little difference in the bleeding. Bovie cautery was used as needed for hemostasis. A medial parapatellar arthrotomy was performed. The patella was everted. A patellar resection guide was used to assist with patellar resection. The patella drill guide was then placed to allow for 3 drill holes within the patella. The patella trial fit well. Attention was then turned to the femur where a intramedullary guide michelle was placed. The distal femoral guide was set to remove 10 mm of distal femur 5 degrees off the anatomic valgus axis alignment. An oscillating saw was used to perform the distal femoral cut. Attention was then turned to the tibia where extramedullary tibia guide was set to remove 5 mm off the lowest portion of the medial tibial plateau. The tibial guide was pinned in place and the tibial cut was performed. A 5 mm spacer block showed full extension. Attention was turned back to the femur with the AP sizing block used to assist with appropriate measurement and placement of the 3 degree external rotation AP cutting guide. The anterior, posterior and chamfer cuts were then performed. The PCL box guide was pinned in place and the PCL was boxed out with an oscillating saw. The medial and lateral meniscus remnants were removed as well as bone and soft tissue debris from the posterior portion of the knee. A tibia baseplate was then pinned in place and the tibia was drilled and punched. Trial components were evaluated and final components were then cemented in place. With the final components implanted the knee could achieve full extension to 0 degrees and flexion to 140, with no evidence of tibial liftoff. The testing of varus valgus balance appeared appropriate and symmetric with good stability. The patella was noted to track centrally. As needed, Bovie cautery was then used for hemostasis. The knee was then thoroughly irrigated with sterile saline pulse lavage antibiotic impregnated solution. The arthrotomy incision was closed with #1 Vicryl suture. The subcutaneous layer closed with 2-0 Vicryl suture. The skin incision was then closed with Dermabond. Sterile dressings were applied. The patient tolerated the procedure well with no intraoperative complications noted. Adam Gutierrez physician plant attendant or assistant operator certified was present during the entire procedure to include patient positioning and the procedure itself. The medical necessity of a physician plant attendant or assistant operator was indicated in this case due to the complexity of the procedure itself. He assisted with appropriate manipulation of the leg and also retraction of the muscle, tendon, bone and neurovascular structures. He assisted with preparation of bone and also implantation of the prosthetic replacement. There was a certified technician specialist within the room that was focused on handling of instruments but was not available to assist with the actual surgery itself. Surgeon: Adam Lieberman MD
[2018-09-24] MEDS ORDERED: fentaNYL Citrate Inj 100 MCG/2 ML Ampul ONE (13:41)
[2018-09-24] MEDS ORDERED: *morphine SULFATE 10 MG/ML PERIprocedure ONLY ONE (13:44)
[2018-09-24] MEDS ORDERED: *Meperidine Inj 25 MG/ML Vial PERIprocedural Use ONLY ONE (14:10)
--- NOTE | 2018-09-24 14:24 | XR ---
EXAM DATE: 09/24/2018 2:15 PM EST AGE/SEX: 58 years / Female INDICATIONS: Post-op total right knee arthroplasty. CLINICAL DATA: This is the patient's subsequent encounter. Patient reports that signs and symptoms h ave been present for 1 day and indicates a pain score of 10/10. MEDICAL/SURGICAL HISTORY: Non-responsive. Non-responsive. COMPARISON: [facility] [place], KNEE RIGHT COMPLETE (4VWS), 11/14/2017. . FINDINGS: AP and lateral views of the knee following arthroplasty reveals a prosthesis in anatomic alignment. F racture is not appreciated. Air is present in the joint space CONCLUSION: Status post total knee arthroplasty. Rodrigo Glover MD FACR : Electronically signed by: Rodrigo Glover MD Board Certified Radiologist 09/24/2018 2:23 PM EST
[2018-09-24] MEDS: HYDROmorphone PF Inj 1 MG/ML Ampul IV.PUSH PRN (16:09)
[2018-09-24] MEDS: Multivitamin/Minerals Therapeutic Tablet PO SCH (20:34)
[2018-09-24] MEDS: Senna/Docusate Sodium 8.6/50 MG Tablet PO SCH (20:34)
[2018-09-25] MEDS: HYDROmorphone PF Inj 1 MG/ML Ampul IV.PUSH PRN ×2 (00:39→05:40)
[2018-09-25] MEDS: ceFAZolin 2 GM Premix Inj 2 GM/50 ML PIGGYBACK IV.SIG SCH ×3 (00:39→06:11)
[2018-09-25 06:47] LABS: Hematocrit 32.8 % (35.0-46.0); Hemoglobin 10.7 gm/dL (11.6-15.3)
--- NOTE | 2018-09-25 08:22 | P.DCO ---
- Physical Therapy Physical Therapy: Gait training, Safety evaluation, Transfer training, bed to chair Knee: Total knee, Protocol: Right, Full weight bearing Right Lower Extremity Weight Bearing: Weight bearing as tolerated - Nursing RN days per week: 1 Nursing: Dressing changes - Case Management Consult Case Management Consult-Home Health: Yes - Certification Need for Home Health services: I have seen patient Saqib Mckoy on 09/25/18. My clinical findings support the need for the requested home health care services because: Need for Home Health Services: Limited ability to care for self, High risk of falls Homebound Certification: I certify that my clinical findings support that this patient is homebound because: Homebound Certification: Post-op weakness, Unsafe to leave home unassisted
--- NOTE | 2018-09-25 08:22 | P.PNOP ---
Subjective Interval history: painful Physical Exam Vital signs: Vital Signs 09/24/18 09:28 09/24/18 13:33 09/24/18 13:45 Temperature 98.1 F 98.3 F Pulse Rate 77 103 H 97 H Respiratory Rate 18 22 24 Blood Pressure 135/74 121/71 145/66 H Pulse Oximetry 96 92 L 93 L 09/24/18 14:00 09/24/18 14:15 09/24/18 14:30 Temperature Pulse Rate 95 H 99 H 83 Respiratory Rate 24 24 18 Blood Pressure 134/60 152/77 H 154/80 H Pulse Oximetry 95 92 L 96 09/24/18 14:45 09/24/18 15:00 09/24/18 15:30 Temperature 97.9 F Pulse Rate 93 H 87 84 Respiratory Rate 20 22 24 Blood Pressure 130/85 140/68 135/72 Pulse Oximetry 93 L 93 L 94 L 09/24/18 16:00 09/24/18 16:39 09/24/18 20:06 Temperature 97.9 F 97.3 F L Pulse Rate 69 86 Respiratory Rate 20 18 20 Blood Pressure 112/60 121/70 Pulse Oximetry 94 L 95 09/24/18 23:33 09/25/18 01:09 09/25/18 04:13 Temperature 97.7 F Pulse Rate 83 Respiratory Rate 20 17 18 Blood Pressure 111/62 Pulse Oximetry 95 09/25/18 04:34 09/25/18 06:10 Temperature 97.8 F Pulse Rate 81 Respiratory Rate 21 17 Blood Pressure 124/62 Pulse Oximetry 97 Intake & Output 09/24/18 09/25/18 09/25/18 18:59 06:59 18:59 Intake Total 2115.92 / 2115.92 1706 / 1706 Output Total 300 / 300 Balance 1815.92 / 1815.92 1706 / 1706 Weight 146.1 kg 146.3 kg Intake: IV 1585.92 / 1585.92 986 / 986 LR 1000 mL Inj 1,000 ML @ 80 114 / 114 886 / 886 mls/hr IV.CONT .[id number] [facility] Rx# :[id number] LR 1000 mL Inj 1,000 ML @ 30 1000 / 1000 mls/hr IV.SIG .Q24H [facility] Rx#: [id number] Cyklokapron Inj 2,192 MG In NS 121.92 / 121.92 Inj 100 ML @ 200 mls/hr IV.SIG ONCE [facility] Rx#:[id number] Vancomycin Inj 1,000 MG In NS 250 / 250 Inj 250 ML @ 250 mls/hr IV.SIG SOLICITOR PATENT GONZALEZ Rx#:[id number] Ancef 2 GM Premix Inj 2 gm In 100 / 100 100 / 100 50 ml @ 100 mls/hr IV.SIG Q6H [facility] Rx#:[id number] Oral 720 / 720 Anesthesia Amount 500 / 500 Output: Urine 0 / 0 Estimated Blood Loss 300 / 300 Other: # Voids 1 3 Date of Last Bowel Movement 09/24/18 # Bowel Movements 1 Weight On Admission 146.1 kg Narrative: in bed, nad dressing c/d/i neg homans nvi Results - Labs CBC & Chem 7: 09/25/18 05:45 Laboratory Results - last 24 hr 09/24/18 09/24/18 09/25/18 09:20 12:06 05:45 Hgb 10.7 L Hct 32.8 L Blood Type O Positive Blood Type Recheck Required Antibody Screen Negative MTS Gel Crossmatch See Detail - Imaging Impressions Knee X-Ray 09/24/18 09:30 CONCLUSION: Status post total knee arthroplasty. Rodrigo Glover MD FACR : Assessment and Plan - Ortho Post Op Day # 1 - Assessment and Plan s/p R TKA POD#1 wbat maintain dressing asa 81 d/c planning home with [facility] and pt -probably Mon/ f/up dr. dobson 2 weeks
[2018-09-25] MEDS: Multivitamin/Minerals Therapeutic Tablet PO SCH ×2 (08:47→20:34)
[2018-09-25] MEDS: amLODIPine 10 MG Tablet PO SCH (08:47)
[2018-09-25] MEDS: Senna/Docusate Sodium 8.6/50 MG Tablet PO SCH ×2 (08:47→20:34)
[2018-09-26 06:14] LABS: Hematocrit 32.5 % (35.0-46.0); Hemoglobin 10.6 gm/dL (11.6-15.3)
--- NOTE | 2018-09-26 07:41 | P.PNOP ---
Subjective Interval history: sore. states she was up on knee a lot yesterday. Physical Exam Vital signs: Vital Signs 09/25/18 10:36 09/25/18 13:06 09/25/18 16:46 Temperature 97.6 F Pulse Rate 80 Respiratory Rate 20 18 Blood Pressure 145/78 H Pulse Oximetry 94 L 93 L 09/25/18 19:58 09/25/18 20:32 09/25/18 23:02 Temperature 99.0 F Pulse Rate 89 Respiratory Rate 20 16 Blood Pressure 146/81 H Pulse Oximetry 96 100 09/26/18 00:13 09/26/18 06:30 Temperature 99.1 F Pulse Rate 87 Respiratory Rate 19 18 Blood Pressure 126/75 Pulse Oximetry 96 Intake & Output 09/25/18 09/26/18 09/26/18 18:59 06:59 18:59 Intake Total 1000 / 1000 1440 / 1440 Balance 1000 / 1000 1440 / 1440 Weight 148 kg Intake: IV 1000 / 1000 LR 1000 mL Inj 1,000 ML @ 80 1000 / 1000 mls/hr IV.CONT .[id number] [facility] Rx# :[id number] Oral 1440 / 1440 Other: # Voids 2 6 Date of Last Bowel Movement 09/24/18 09/25/18 # Bowel Movements 0 Narrative: in bed, nad bloody drainage on dressing neg homans nvi Results - Labs CBC & Chem 7: 09/26/18 05:26 Laboratory Results - last 24 hr 09/26/18 05:26 Hgb 10.6 L Hct 32.5 L Assessment and Plan - Ortho Post Op Day # 2 - Assessment and Plan s/p R TKA POD#2 wbat start daily dressing changes, line incision with steri-strips asa 81 d/c planning snf - cleared when authorized by insurance f/up dr. dobson 2 weeks
[2018-09-26 08:31] VITALS: RESP 20; O2SAT 95
[2018-09-26] MEDS: Multivitamin/Minerals Therapeutic Tablet PO SCH (09:28)
[2018-09-26] MEDS: Senna/Docusate Sodium 8.6/50 MG Tablet PO SCH (09:28)
[2018-09-26] MEDS: amLODIPine 10 MG Tablet PO SCH (09:29)
[2018-09-26 12:53] VITALS: BP 126/60; PULSE 88; TEMP 98.4
--- NOTE | 2018-09-27 09:46 | MD ---
cc: Adam Lieberman MD DATE OF DISCHARGE: 09/26/2018 ADMITTING DIAGNOSIS: Severe degenerative osteoarthritis, right knee. DISCHARGE DIAGNOSIS: Severe degenerative osteoarthritis, right knee. HISTORY OF PRESENT ILLNESS: Ms. Mckoy is a 58-year-old female who [facility] for evaluation by Dr. Adam Lieberman regarding severe and progressive right knee pain. She states the pain has been bothering her for numerous years and is currently limiting her ability to ambulate safely. She has severe aching sensation with weightbearing activities. She has no alleviating factors; although in the past she has tried medications, assistive devices, physical therapy, home exercise program, and corticosteroid injection without relief of symptoms. She has x-ray evidence of severe degenerative changes of the right knee joint. While in the office, the patient was counseled on her diagnosis and treatment options. Risks, benefits, indications were all discussed. The patient did elect to proceed with surgical intervention to include a right total knee arthroplasty. DATE OF SURGERY: 09/24/2018, right total knee arthroplasty. POSTOP: After surgery, the patient admitted to [facility] where she received appropriate medical management, pain control, DVT prophylaxis, as well as physical therapy. DISCHARGE: Once being discharged from the hospital, the patient is cleared to go to a shelter facility. She is in stable condition. She may weight bear as tolerated. She is to receive daily dressing changes. She has been provided prescriptions for pain control and DVT prophylaxis. She has also been provided a followup appointment approximately 2 weeks from the surgery. The patient has asked appropriate questions, which have been answered. The patient had been discharged to shelter facility. Dictated by KENNA Wen Adam Lieberman MD JWM/rs , 08:00 AM , 08:05 AM
== END 2018-09-26 19:15 | DRG 470 ==
LOC: HSDI 08:33 → N06 15:47
PROVIDERS: ADMIT Orthopaedic Surgery Sports Medicine; ATTEND Orthopaedic Surgery Sports Medicine
CPT/HCPCS: 73560; 85014; 85018; 86850; 86900; 86901; 86923; 94150; 97110; 97116; 97150; 97163; 97167; 97530; 97535; C1776; J0131; J0171; J0690; J0735; J1100; J1170; J1580; J2175; J2250; J2270; J2405; J2704; J2710; J2795; J3010; J3370; J7050; J7120; L1830